=== PATIENT | male | born 1940 | race Caucasian/White ===

== ENCOUNTER 2017-06-12 13:07 | Inpatient (IN) | payer MEDICARE, BC ==
[2017-06-12] MEDS ORDERED: Diltiazem 25 MG/5 ML SDV IVPUSH ONE (13:33)
[2017-06-12] MEDS ORDERED: Acetaminophen 325 MG Tab PO ONE (13:35)
--- NOTE | 2017-06-12 13:39 | EDM.PDOC ---
ED HPI GENERAL MEDICAL PROBLEM - General Chief Complaint: Fever Stated Complaint: HIGH PULSE, LEG SWELLING Time Seen by Provider: 06/12/17 13:31 Source of Information: Reports: Patient History Limitations: Reports: No Limitations - History of Present Illness INITIAL COMMENTS - FREE TEXT/NARRATIVE: 77-year-old male attends the ED with acute redness and swelling of his right leg with increased pain over the last few days. Apparently has been quite red and swollen for the better part of 2-3 weeks. He spiked a temperature early this morning of 104 and he's also experienced rigors and could not keep warm for a period of time this morning. He had contacted his doctor last night and they had phoned in a prescription for Bactrim double strength of which he has taken one tablet thus far. Patient has atrial fibrillation and is aware that his pulse is running way too high today. 155/m at home. He feels generally ill. He is no appetite and has not yet eaten today. He is also an insulin-dependent diabetic and blood sugars have been running normal today. Right leg is been swollen and reddened for 2-3 weeks and oozing fluid intermittently. It will often develop blebs or large bubbles that breakdown and lose serous fluid. His Lasix dosage apparently is the same as it always has been. Onset: Today Onset Date: 06/12/17 (Onset of high fever chills and rigors today. Right leg is been reddened and swollen for the better part of 2 and half weeks.) Duration: Day(s):, Getting Worse Location: Reports: Lower Extremity, Right (Red swollen) Quality: Reports: Ache, Burning, Same as Previous Episode, Sharp, Stabbing, Throbbing Severity: Moderate Improves with: Reports: None Worsens with: Reports: None Context: Reports: Other (Chronic venous insufficiency and dependent edema both lower extremities from obesity and congestive heart failure.). Denies: Activity , Exercise, Lifting, Sick Contact, Trauma Associated Symptoms: Reports: Diaphoresis, Fever/Chills, Loss of Appetite, Malaise, Rash, Weakness. 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: Other (see below) Right Leg Pain Score (Numeric/FACES): 2 - Related Data Allergies Allergy/AdvReac Type Severity Reaction Status Date / Time Cephalosporins Allergy Rash Verified 06/12/17 13:14 Penicillins Allergy Rash Verified 06/12/17 13:14 Home Meds: Home Meds Enalapril [Vasotec] 5 mg PO DAILY 11/04/14 [History] Insulin Glulisine [Apidra Solostar] 5 units INJECT TID PRN 11/04/14 [History] LORazepam [Ativan] 0.5 mg PO Q8H PRN 11/04/14 [History] Simvastatin [Zocor] 20 mg PO DAILY 11/04/14 [History] traMADol [Ultram] 50 mg PO TID PRN 11/04/14 [History] Diltiazem [Cardizem CD] 180 mg PO ACBRK 14 Days cap.cd 12/07/14 [Rx] Metoprolol Succinate 50 mg PO DAILY 14 Days tab.er.24h 12/07/14 [Rx] Rivaroxaban [Xarelto] 20 mg PO BEDTIME 14 Days tablet 12/07/14 [Rx] Furosemide [Lasix] 20 mg PO ASDIRECTED 06/12/17 [History] Insulin Glargine,Hum.Rec.Anlog [Toujeo Solostar] 44 unit SQ BEDTIME 06/12/17 [ History] Sulfamethoxazole/Trimethoprim [Bactrim Ds Tablet] 1 tab PO BID 06/12/17 [History ] Past Medical History Other HEENT History: vertigo Cardiovascular History: Reports: Afib (Chronically and is on Xarelto.), Heart Failure, High Cholesterol, Hypertension Respiratory History: Reports: COPD (Mild.) Other Respiratory History: cough for past week Other Genitourinary History: pt states dribbles urine alot Musculoskeletal History: Reports: Arthritis (Knees hips and neck and low back.) , Back Pain, Chronic, Osteoarthritis Neurological History: Reports: Other (See Below) (Mild peripheral neuropathy in both lower extremities) Endocrine/Metabolic History: Reports: Diabetes, Type II (Controlled with insulin and diet. He is also on Trajenta 44 units at hs. 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 Denies: Weight Loss HEENT: Reports: Glasses (Just for reading.) Respiratory: Reports: Shortness of Breath, Wheezing (On minimal exertion), Cough. Denies: Pleuritic Chest Pain ( case no wheezing), Sputum, Hemoptysis ( Nonproductive for the last week.) Cardiovascular: Reports: Blood Pressure Problem, Claudication (Chronic hypertension), Dyspnea on Exertion ( mild in the calves.), Edema (Chronic lower extremity edema up to the knees.), Palpitations (He is aware of palpitations today with his heart rate being 1 55/m.). Denies: Chest Pain, Lightheadedness Endocrine: Reports: Fatigue, Polyuria GI/Abdominal: Reports: Decreased Appetite, Nausea. Denies: Hematemesis, Hematochezia (Just today with fever and illness.), Stool Incontinence (Mild nausea), Vomiting : Reports: Frequency Musculoskeletal: Reports: Neck Pain, Shoulder Pain, Back Pain, Joint Pain ( Knees and hips) Skin: Reports: Rash, Erythema (Chronic rash right lower extremity from venous insufficiency and now development of cellulitis. Right lower leg), Lesions ( Right lower leg will develop large blebs or vesicles that rupturing drain serous fluid.) Neurological: Reports: No Symptoms, Paresthesia (Both lower extremities up to mid tib-fib in both feet from peripheral neuropathy), Weakness (Feels much more weak today.). Denies: Confusion, Dizziness, Headache, Numbness Hematologic/Lymphatic: Reports: No Symptoms Immunologic: Reports: No Symptoms ED EXAM, GENERAL - Physical Exam Exam: See Below Exam Limited By: No Limitations General Appearance: Alert, WD/WN, Mild Distress, Other (He is very warm to palpation. He is alert and oriented. Vital signs show respiratory to 26/m mildly hypertensive and O2 sats of 98% on room air.) Eye Exam: Bilateral Eye: Normal Inspection Throat/Mouth: Normal Inspection, Normal Lips, Normal Teeth, Other Head: Atraumatic, Normocephalic (Tongue is mildly dry and shrunken.) Neck: Normal Inspection, Supple, Non-Tender, Limited Range of Motion, Tender Lateral. No: Full Range of Motion Respiratory/Chest: Lungs Clear, Respiratory Distress (Mild tachypnea at rest. 26 -28/m), Decreased Breath Sounds (Decreased breath sounds to the left lower lung cat). No: Crackles, Rales, Rhonchi Cardiovascular: Irregularly Irregular (Heart rate on monitor is atrial fibrillation at 145-1 55/m. Patient has chronic atrial fibrillation.). No: Normal Peripheral Pulses, No Edema Peripheral Pulses: 1+: Posterior Tibial (L) (Pulses are barely palpable in either dorsal foot.), Posterior Tibial (R), Dorsalis Pedis (L), Dorsalis Pedis ( R) GI/Abdominal: Normal Bowel Sounds, Soft, Non-Tender, No Organomegaly, Hernia ( Is a fairly large asymptomatic umbilical hernia that is easily reducible.), Other (Moderate abdominal obesity.) Back Exam: Normal Inspection, Full Range of Motion. No: CVA Tenderness (L), CVA Tenderness (R) Extremities: Normal Inspection, Normal Range of Motion, Non-Tender, Pedal Edema (Gross edema past the knee on the right side.), Leg Pain (Right leg is painful to touch), Increased Warmth, Other (Large bleb on the medial aspect of the mid leg. There are no open draining serous wounds or purulent wounds on the leg at this time. The leg is very warm to palpation compatible with cellulitis.) Neurological: Alert, Oriented, CN II-XII Intact, Normal Cognition. No: Normal Gait Skin Exam: Warm, Erythema (Right leg right leg), Increased Warmth EKG INTERPRETATION EKG Date: 06/12/17 Time: 13:20 Rhythm: Other (Narrow complex tachycardia without well-defined P waves. Possible sinus rhythm with a first-degree AV block versus accelerated junctional rhythm. Also possibility of atrial flutter atrial fib with a variable block.) Rate (Beats/Min): 141 P-Wave: Absent QRS: Other (Voltages decreased in the limb leads due to his thick chest.) ST-T: Depressed (Mildly depressed and V6 and V5.) QT: Normal EKG Interpretation Comments: Borderline ECG Course - Vital Signs Last Recorded V/S: Last Vital Signs Temp -11.2 C L 06/12/17 13:48 Pulse 145 H 06/12/17 13:15 Resp 26 H 06/12/17 13:15 BP 142/78 H 06/12/17 13:15 Pulse Ox 98 06/12/17 13:15 - Orders/Labs/Meds Orders: Active Orders 24 hr Category Date Time Status Blood Glucose Check, Bedside [RC] ONETIME Care 06/12/17 13:32 Active EKG Documentation Completion [RC] STAT Care 06/12/17 13:31 Active CULTURE BLOOD [BC] Stat Lab 06/12/17 13:53 Received CULTURE BLOOD [BC] Stat Lab 06/12/17 14:35 Received URINALYSIS W/MICROSCOPIC [UA W/MICROSCOPIC] [URIN] Stat Lab 06/12/17 13:32 Uncollected Diltiazem 125 mg Med 06/12/17 13:45 Active Sodium Chloride 0.9% [Normal Saline] 100 ml IV ASDIRECTED Sodium Chloride 0.9% [Normal Saline] 1,000 ml Med 06/12/17 13:45 Active IV ASDIRECTED Blood Culture x2 Reflex Set [OM.PC] Stat Oth 06/12/17 13:32 Ordered Medication Orders Diltiazem HCl 125 mg/ Sodium (Chloride) 125 mls @ 10 mls/hr IV ASDIRECTED HARRISON PRN Reason: 10 MG/HR Last Admin: 06/12/17 14:04 Dose: 10 mg/hr, 10 mls/hr Sodium Chloride (Normal Saline) 1,000 mls @ 100 mls/hr IV ASDIRECTED HARRISON Last Admin: 06/12/17 13:49 Dose: 100 mls/hr Labs: Laboratory Tests 06/12/17 06/12/17 06/12/17 Range/Units 13:20 13:20 13:20 WBC 5.85 (4.23-9.07) K/mm3 RBC 4.45 L (4.63-6.08) M/mm3 Hgb 14.3 (13.7-17.5) gm/L Hct 43.4 (40.1-51.0) % MCV 97.5 H (79.0-92.2) fl MCH 32.1 (25.7-32.2) pg MCHC 32.9 (32.2-35.5) g/dl RDW Std Deviation 46.3 H (35.1-43.9) fL Plt Count 210 (163-337) K/mm3 MPV 9.9 (9.4-12.3) fl Neutrophils % (Manual) 79 H (40-60) % Band Neutrophils % 1 (0-10) % Lymphocytes % (Manual) 15 L (20-40) % Atypical Lymphs % 0 % Monocytes % (Manual) 5 (2-10) % Eosinophils % (Manual) 0 L (0.8-7.0) % Basophils % (Manual) 0 L (0.2-1.2) Platelet Estimate Adequate RBC Morph Comment Normal ESR (0-15) mm/hr PT 13.4 H (8.0-13.0) SECONDS INR 1.21 Sodium 140 (136-145) mEq/L Potassium 4.0 (3.5-5.1) mEq/L Chloride 104 (98-107) mEq/L Carbon Dioxide 26 (21-32) mEq/L Anion Gap 14.0 (5-15) BUN 10 (7-18) mg/dL Creatinine 1.3 (0.7-1.3) mg/dL Est Cr Clr Drug Dosing 46.83 mL/min Estimated GFR (MDRD) 53 (>60) mL/min BUN/Creatinine Ratio 7.7 L (14-18) Glucose 100 (83-115) mg/dL POC Glucose (83-110) mg/dL Calcium 8.8 (8.5-10.1) mg/dL Magnesium 1.6 L (1.8-2.4) mg/dl Total Bilirubin 0.7 (0.2-1.0) mg/dL AST 16 (15-37) U/L ALT 20 (16-63) U/L Alkaline Phosphatase 86 (46-116) U/L CK-MB (CK-2) 0.7 (0-3.6) ng/ml Troponin I < 0.017 (0.00-0.056) ng/mL C-Reactive Protein 2.3 H* (<1.0) mg/dL NT-Pro-B Natriuret Pep 215 (0-450) pg/mL Total Protein 7.4 (6.4-8.2) g/dl Albumin 3.2 L (3.4-5.0) g/dl Globulin 4.2 gm/dL Albumin/Globulin Ratio 0.8 L (1-2) 06/12/17 06/12/17 Range/Units 13:20 14:19 WBC (4.23-9.07) K/mm3 RBC (4.63-6.08) M/mm3 Hgb (13.7-17.5) gm/L Hct (40.1-51.0) % MCV (79.0-92.2) fl MCH (25.7-32.2) pg MCHC (32.2-35.5) g/dl RDW Std Deviation (35.1-43.9) fL Plt Count (163-337) K/mm3 MPV (9.4-12.3) fl Neutrophils % (Manual) (40-60) % Band Neutrophils % (0-10) % Lymphocytes % (Manual) (20-40) % Atypical Lymphs % % Monocytes % (Manual) (2-10) % Eosinophils % (Manual) (0.8-7.0) % Basophils % (Manual) (0.2-1.2) Platelet Estimate RBC Morph Comment ESR 60 H (0-15) mm/hr PT (8.0-13.0) SECONDS INR Sodium (136-145) mEq/L Potassium (3.5-5.1) mEq/L Chloride (98-107) mEq/L Carbon Dioxide (21-32) mEq/L Anion Gap (5-15) BUN (7-18) mg/dL Creatinine (0.7-1.3) mg/dL Est Cr Clr Drug Dosing mL/min Estimated GFR (MDRD) (>60) mL/min BUN/Creatinine Ratio (14-18) Glucose (83-115) mg/dL POC Glucose 102 (83-110) mg/dL Calcium (8.5-10.1) mg/dL Magnesium (1.8-2.4) mg/dl Total Bilirubin (0.2-1.0) mg/dL AST (15-37) U/L ALT (16-63) U/L Alkaline Phosphatase (46-116) U/L CK-MB (CK-2) (0-3.6) ng/ml Troponin I (0.00-0.056) ng/mL C-Reactive Protein (<1.0) mg/dL NT-Pro-B Natriuret Pep (0-450) pg/mL Total Protein (6.4-8.2) g/dl Albumin (3.4-5.0) g/dl Globulin gm/dL Albumin/Globulin Ratio (1-2) Meds: Medications Generic Name Dose Route Start Last Admin Trade Name Freq PRN Reason Stop Dose Admin Diltiazem HCl 125 mg/ Sodium 125 mls @ 10 mls/hr 06/12/17 13:45 06/12/17 14: 04 Chloride IV 10 mg/hr ASDIRECTED HARRISON 10 mls/hr 10 MG/HR Administration Sodium Chloride 1,000 mls @ 100 mls/hr 06/12/17 13:45 06/12/17 13:49 Normal Saline IV 100 mls/hr ASDIRECTED HARRISON Administration Discontinued Medications Generic Name Dose Route Start Last Admin Trade Name Freq PRN Reason Stop Dose Admin Acetaminophen 975 mg 06/12/17 13:35 06/12/17 13:48 Tylenol PO 06/12/17 13:36 975 mg NOW ONE Administration Diltiazem HCl 10 mg 06/12/17 13:33 06/12/17 13:51 Diltiazem IVPUSH 06/12/17 13:34 10 mg ONETIME ONE Administration Vancomycin HCl 1 gm/ Sodium 250 mls @ 250 mls/hr 06/12/17 13:39 06/12/17 14: 06 Chloride IV 06/12/17 14:38 250 mls/hr ONETIME ONE Administration - Radiology Interpretation Free Text/Narrative:: 69-year-old male presents to the ED with acute febrile illness with rigors and chills. He has had a painful swollen right right leg for the better part of 3 weeks which is become much worse over the last few days. He was started on Bactrim double strength for this last evening of 4 so he's only had 2 tablets. He presents with a rapid irregular heart rate i.e. atrial fibrillation in the 150s. Has a history of atrial fibrillation. He is on Xarelto chronically. He does have a nonproductive cough. Lungs are clear clinically without any obvious signs of jugular venous distention or fluid overload. He has dependent edema in both lower extremities compatible with right-sided heart failure. Plan :septic workup although the source of infection appears to be obviously cellulitis of the right lower extremity. He has a narrow complex tachycardia of unclear etiology as P waves are not easily discernible and appeared to be coming on a variable basis suggesting underlying atrial flutter or sinus with variable block. Accelerated junctional rhythm as another possibility. Plan he has a history of atrial fibrillation and therefore going to place him on Cardizem drip at 10 mg per hour to slow the rate so that I can try and identify etiology of the rhythm. He will be given vancomycin 1 g after blood cultures 2 been collected. Is going to start him on Zyvox as well but it interacts badly with tramadol which he takes 3 times daily for chronic pain. He is going to require medication to cover staph aureus and potentially MRSA infection. He is allergic to cephalosporins and to penicillins. - Re-Assessments/Exams Free Text/Narrative Re-Assessment/Exam: 06/12/17 14:42 heart rate is currently 1 13/m with BP of 111/69. The P waves remained variable sometimes visible sometimes not. Underlying rhythm appears to be atrial flutter with a variable 2-3-1 conduction block. 06/12/17 14:44 Labs reveal a white count of 5.85 with 79% neutrophils and 1% band cells reported. Hemoglobin is 14.3 with hematocrit of 43.4 MCV is 97.5. Sedimentation rate is 60. PT is 13.4 with an INR of 1.21. Sodium 140. Potassium 4.0. Toward 104. Bicarbonate 26. Anion gap is 14.0. BUN is 10. Creatinine 1.3. EGFR is 53. Glucose is currently 100. Calcium is 8.8 magnesium slightly low at 1.6. Bilirubin 0.7. AST 16. ALT 20. Alk phosphatase 86. CK-MB fraction is 0.7. Troponin I is less than 0.017. C-reactive protein is 2.3. BNP is 2:15. Albumin fraction slightly low at 3.2. 06/12/17 14:49 chest x-ray reveals an elevated right hemidiaphragm likely due to paralysis. There is borderline cardiomegaly. Visualized lung cat are otherwise clear. There is mild hyperinflated lung cat. There is a question right upper lobe lung nodule and noncontrast chest CT is recommended when feasible. Plan will be to discuss case with hospitalist to arrange admission to the hospital. 06/12/17 15:11 C-reactive protein is 2.3. I did speak with Dr. De La Rosa crop consultant hospitalist and the patient will be admitted to the intensive care unit due to being on Cardizem drip for presumed atrial fibrillation/atrial flutter rhythm. Current blood pressure is 117/63 with a heart rate in the 90s. 06/12/17 15:15 patient is complaining that he had diffuse aching in his fingers and wrists last night in both hands. This sometimes can be a sinus symptom of hyperuricemia. I will order a uric acid level. 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; Z79.4 - FDC (current) use of insulin Referrals: Eugenie Sen COMPTOMETRIST [Primary Care Provider] - Forms: ED Department Discharge, ED Department Discharge - My Orders Last 24 Hours: My Active Orders 06/12/17 13:31 EKG Documentation Completion [RC] STAT 06/12/17 13:32 Blood Glucose Check, Bedside [RC] ONETIME URINALYSIS W/MICROSCOPIC [UA W/MICROSCOPIC] [URIN] Stat Blood Culture x2 Reflex Set [OM.PC] Stat 06/12/17 13:45 Diltiazem 125 mg Sodium Chloride 0.9% [Normal Saline] 100 ml IV ASDIRECTED Sodium Chloride 0.9% [Normal Saline] 1,000 ml IV ASDIRECTED 06/12/17 13:53 CULTURE BLOOD [BC] Stat 06/12/17 14:35 CULTURE BLOOD [BC] Stat - Assessment/Plan Last 24 Hours: My Active Orders 06/12/17 13:31 EKG Documentation Completion [RC] STAT 06/12/17 13:32 Blood Glucose Check, Bedside [RC] ONETIME URINALYSIS W/MICROSCOPIC [UA W/MICROSCOPIC] [URIN] Stat Blood Culture x2 Reflex Set [OM.PC] Stat 06/12/17 13:45 Diltiazem 125 mg Sodium Chloride 0.9% [Normal Saline] 100 ml IV ASDIRECTED Sodium Chloride 0.9% [Normal Saline] 1,000 ml IV ASDIRECTED 06/12/17 13:53 CULTURE BLOOD [BC] Stat 06/12/17 14:35 CULTURE BLOOD [BC] Stat
[2017-06-12] MEDS ORDERED: Diltiazem 125 MG in Sodium Chloride 0.9% 100 ML IV SCH (13:45)
[2017-06-12] MEDS: Sodium Chloride 0.9% 1,000 ML IV SCH ×2 (13:49→23:58)
--- NOTE | 2017-06-12 13:51 | CR ---
Chest: Portable view of the chest is obtained. Comparison: Prior chest x-ray of 02/23/15. Heart size and mediastinum are within normal limits for portable technique. Questionable nodule within the upper right lung overlying the clavicle. Lungs otherwise are clear. Bony structures are grossly intact. Impression: 1. Questionable right upper lung nodule. Noncontrast chest CT recommended to further evaluate. 2. Nothing acute is otherwise seen on portable chest x-ray Diagnostic code #9
--- NOTE | 2017-06-12 16:16 | PCM.HP ---
H&P History of Present Illness - General Date of Service: 06/12/17 Admit Problem/Dx: Admission Diagnosis/Problem Admission Diagnosis/Problem Fever with chills Source of Information: Patient, Old Records, Provider, RN, RN Notes Reviewed, Significant Other History Limitations: Reports: No Limitations - History of Present Illness Initial Comments - Free Text/Narative: Shannon Page is a 77 yo male who presented to our ED today with increased pain , redness, and swelling to his right lower extremity. His leg has reportedly been red and swollen for 2-3 weeks with intermittent oozing fluid. He reports that has developed blebs or "large bubbles" that breakdown and lose serous fluid. This morning he spiked temperature around 104. He's also had difficulty keeping form express rigors today. He contacted his primary care provider and they gave him a Bactrim prescription. He is taking 1 tablet thus far. He does have a history of A. fib and on presentation his pulse was very high. His reportedly 155 at presentation. He reportedly feels very ill. He's had no appetite. He is also insulin-dependent diabetic, however his blood sugars have been running normal. He is also on daily Lasix. Once in the ED an EKG was obtained. A narrow complex tachycardia without well- defined P waves was noted. Possible sinus rhythm with a first-degree AV block versus accelerated junctional rhythm. Also possibility of atrial flutter\\A. fib with a variable block. Rate was 141 bpm. Pulses were decreased in the legs due to his thick chest. There is mildly depressed ST segment in V6 and V5. It was noted as a borderline EKG. This is interpreted by the ED provider. Temp was 102. Respirations were 26. Blood pressure 142/78. Labs are obtained: 30 BC 5.85. Hemoglobin 14.3. Hematocrit 43.4. He was macrocytic. Platelets 210,000. Neutrophils were elevated at 79%. Band neutrophils were noted at 1%. ESR was elevated at 60. PT was 13.4. INR 121. Sodium 140. Potassium 4.0. Chloride 104. Carbon dioxide 26. Anion gap 14.0. BUN 10. Creatinine 1.3. EGFR 53. Glucose 100. Calcium 8.8. Magnesium low at 1.6. Total bilirubin 0.7. Liver enzymes looked good with AST of 16, ALT at 20, alkaline phosphatase 86. CK-MB was good at 0.7. Troponin was negative at less than 0.017. CRP was slightly elevated at 2.3. ProBNP was good at 2:15. Protein was good at 7.4. Albumin was slightly low at 3.2. UA was ordered and shows trace occult blood. UA is otherwise normal. Acetaminophen was given for fever. Diltiazem 10 mg IV push was given. Diltiazem drip was also started. Vancomycin 1 g was initiated in the ED. It is noted in the ED that he does have a nonproductive cough however, lungs are clear without any obvious signs of jugular venous distention fluid overload. He does have dependent edema in both lower extremities. Chest x-ray was obtained and interpreted by Dr. Nowak , radiologist, as 1. Questionable right upper lung nodule. Noncontrast chest CT recommended to further evaluate. 2. Nothing acute is otherwise seen on portable chest x-ray. He responded well to the Cardizem and did convert to normal sinus rhythm. Blood pressure was 117/63 and heart rate in the 90s prior to being admitted to the floor. Due to some noted aching in his fingers and wrists see her as it is also ordered and found to be 6.0. He caries a history of: Anxiety, CAD with Hx/o stenting, Chronic A. fib treated with Xarelto, heart failure, HLD, HTN, mild COPD, arthritis, chronic back pain, psoriasis, osteoarthritis, mild peripheral neuropathy in both lower extremities , type 2 diabetes controlled with insulin and diet, chronic peripheral edema, and hx/o prostate cancer. He is reportedly a former smoker. He subsequently admitted to the ICU. He is a full code. His PCP is MADISON Dejesus, here at [facility]. Right Leg Pain Score (Numeric/FACES): 2 - Related Data Allergies/Adverse Reactions: Allergies Allergy/AdvReac Type Severity Reaction Status Date / Time Cephalosporins Allergy Rash Verified 06/12/17 13:14 Penicillins Allergy Rash Verified 06/12/17 13:14 Home Medications: Home Meds Enalapril [Vasotec] 2.5 mg PO DAILY 11/04/14 [History] Insulin Glulisine [Apidra Solostar] 5 units INJECT TID PRN 11/04/14 [History] LORazepam [Ativan] 1 mg PO TID PRN 11/04/14 [History] Simvastatin [Zocor] 10 mg PO DAILY 11/04/14 [History] traMADol [Ultram] 50 - 100 mg PO QID PRN 11/04/14 [History] Diltiazem [Cardizem CD] 180 mg PO ACBRK 14 Days cap.cd 12/07/14 [Rx] Metoprolol Succinate 50 mg PO DAILY 14 Days tab.er.24h 12/07/14 [Rx] Rivaroxaban [Xarelto] 20 mg PO BEDTIME 14 Days tablet 12/07/14 [Rx] Bacitracin 3.5 gm OP BID 06/12/17 [History] Clopidogrel [Plavix] 75 mg PO DAILY 06/12/17 [History] Furosemide [Lasix] 20 mg PO DAILY 06/12/17 [History] Gabapentin [Neurontin] 100 mg PO BID 06/12/17 [History] Insulin Glargine,Hum.Rec.Anlog [Toujeo Solostar] 44 unit SQ BEDTIME 06/12/17 [ History] Insulin Glargine,Hum.Rec.Anlog [Toujeo Solostar] 44 unit SQ BEDTIME 06/12/17 [ History] Sulfamethoxazole/Trimethoprim [Bactrim Ds Tablet] 1 tab PO BID 06/12/17 [History ] Past Medical History Other HEENT History: vertigo Cardiovascular History: Reports: Afib (Chronically and is on Xarelto.), Heart Failure, High Cholesterol, Hypertension Respiratory History: Reports: COPD (Mild.) Other Respiratory History: cough for past week Other Genitourinary History: pt states dribbles urine alot Musculoskeletal History: Reports: Arthritis (Knees hips and neck and low back.) , Back Pain, Chronic, Osteoarthritis Neurological History: Reports: Other (See Below) (Mild peripheral neuropathy in both lower extremities) Endocrine/Metabolic History: Reports: Diabetes, Type II (Controlled with insulin and diet. He is also on Trajenta 44 units at hs. 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 Upon my arrival in the patients room HR was noted to be in a sinus rhythm with HR in the 90's. 12-lead EKG was ordered showing sinus rhythm with 1 degree HB. Rate was in the 90's. Troponin was negative. Patient denied any symptoms throughout episode. I am suspecting this was a problem with the monitor, or more specifically monitor patches. Equipment was changed and we will continue to monitor. General: Reports: Fever, Malaise, Weakness, Fatigue, Decreased Appetite. Denies : Chills HEENT: Reports: No Symptoms. Denies: Ear Pain, Eye Pain, Hearing Changes, Rhinitis, Post Nasal Drip, Sore Throat, Vertigo, Visual Changes Pulmonary: Reports: Cough. Denies: Shortness of Breath, Wheezing, Pleuritic Chest Pain, Sputum Cardiovascular: Reports: Dyspnea on Exertion (chornic ), Edema (chronic up to knees ), Blood Pressure Problem. Denies: Chest Pain, Palpitations Gastrointestinal: Reports: No Symptoms. Denies: Abdominal Pain, Anorexia, Constipation, Diarrhea, Nausea, Stool Incontinence, Vomiting Genitourinary: Reports: Frequency. Denies: No Symptoms, Dysuria, Burning, Pain , Urgency Musculoskeletal: Reports: Neck Pain (chronic ), Shoulder Pain (chronic), Back Pain (chronic ), Hand Pain (described as numbness ), Leg Pain (right ), Joint Pain (chronic knee and hip pain). Denies: Arm Pain, Foot Pain, Joint Swelling, Muscle Pain, Muscle Stiffness Skin: Reports: Erythema (right leg ), Change in Color (erythema in right leg. Bilateral leg discoloration ), Lesions (blebs on right lower leg not actively draining ). Denies: Jaundice, Diaphoresis, Pruritis, Wound, Urticaria Psychiatric: Reports: No Symptoms. Denies: Confusion, Depression, Mood Lability , Anxiety, Hallucinations Neurological: Reports: Numbness (chronic periphreal neuropathy ), Paresthesia ( bilateral up to middle lower leg.), Tingling (chronic periphreal neuropathy ). Denies: Confusion, Dizziness, Headache, Seizure, Trouble Speaking, Change in Speech Hematologic/Lymphatic: Reports: No Symptoms Immunologic: Reports: No Symptoms Review of Systems Comment:: Patient is an insulin-dependent diabetic. I discussed his insulin with both patient and his primary care provider. The report that the patient was on Lantus and NovoLog and developed a type of rash from this with his psoriasis. He was switched to his current insulin regiment and his PCP recommends staying with this. This seems reasonable. She also discussed obtaining an echocardiogram, as the patient was supposed to get one several months ago, however he called to reschedule and never showed up. She is suggested we obtain this while he is hospitalized as well. She reports that the patient has never had any type of peripheral vascular testing performed. I discussed this with her as I feel this is something that should be explored. It would obviously need to wait until his infection has resolved. Exam - Exam Exam: See Below - Vital Signs Vital Signs: Last Vital Signs Temp 11.8 F L 06/12/17 13:48 Pulse 145 H 06/12/17 13:15 Resp 26 H 06/12/17 13:15 BP 142/78 H 06/12/17 13:15 Pulse Ox 98 06/12/17 13:15 Weight: 245 lb - Exam Quality Assessment: DVT Prophylaxis General: Alert, Oriented, Cooperative. No: Mild Distress HEENT: Conjunctiva Clear, EACs Clear, EOMI, Hearing Intact, Mucosa Moist & Pump Back , Nares Patent, Normal Nasal Septum, Posterior Pharynx Clear, PERRLA Neck: Supple, Trachea Midline. No: Full Range of Motion, JVD, Thyromegaly Lungs: Clear to Auscultation, Decreased Breath Sounds. No: Crackles, Rales, Rhonchi, Rub, Stridor, Wheezing Cardiovascular: Regular Rate, Regular Rhythm GI/Abdominal Exam: Normal Bowel Sounds, Soft, Non-Tender, No Organomegaly, No Distention, No Abnormal Bruit, No Mass, Pelvis Stable (Male) Exam: Deferred Rectal (Males) Exam: Deferred Back Exam: Normal Inspection, Full Range of Motion Extremities: Normal Capillary Refill, Pedal Edema (R>>L), Increased Warmth ( right leg), Redness (right lower leg ), Other (Large bleb with several smaller blebs on right medial leg. None are draining at this point. ) Peripheral Pulses: 1+: Posterior Tibial (L), Posterior Tibial (R), Dorsalis Pedis (L), Dorsalis Pedis (R), 2+: Radial (L), Radial (R) Skin: Warm, Dry, Other (Right leg erythematous, swollen, and warm.) Neurological: Cranial Nerves Intact (Grossly) Neuro Extensive - Mental Status: Alert, Oriented x3, Normal Mood/Affect, Normal Cognition, Memory Intact Neuro Extensive - Motor, Sensory, Reflexes: CN II-XII Intact (Grossly) Psychiatric: Alert, Normal Affect, Normal Mood - Patient Data Result Diagrams: 06/12/17 13:20 06/12/17 13:20 *Q Meaningful Use (ADM) - VTE *Q VTE Criteria *Q: - Stroke *Q Stroke Criteria *Q: - AMI *Q AMI Criteria *Q: - Problem List (1) Cellulitis of right lower extremity SNOMED Code(s): 842290740 ICD Code: L03.115 - CELLULITIS OF RIGHT LOWER LIMB Status: Acute Priority : High Current Visit: Yes (2) Atrial fibrillation with rapid ventricular response SNOMED Code(s): 938723005279698 ICD Code: I48.91 - UNSPECIFIED ATRIAL FIBRILLATION Status: Acute Priority : High Current Visit: Yes (3) Acute febrile illness SNOMED Code(s): 855015866 ICD Code: R50.9 - FEVER, UNSPECIFIED Status: Acute Priority: High Current Visit: Yes (4) Type 2 diabetes mellitus, with long-term current use of insulin SNOMED Code(s): 639538507 ICD Code: E11.9 - TYPE 2 DIABETES MELLITUS WITHOUT COMPLICATIONS; Z79.4 - ALF (CURRENT) USE OF INSULIN Status: Acute Priority: High Current Visit: Yes Qualifiers: Diabetes mellitus complication status: with skin complications Diabetes mellitus complication detail: with other skin ulcer Qualified Code(s): E11.622 - Type 2 diabetes mellitus with other skin ulcer; Z79.4 - extermination inspector ( current) use of insulin; Z79.4 - extermination inspector (current) use of insulin; Z79.4 - extermination inspector (current) use of insulin; Z79.4 - detention (current) use of insulin (5) HTN (hypertension) SNOMED Code(s): 17259603 ICD Code: I10 - ESSENTIAL (PRIMARY) HYPERTENSION Status: Acute Priority: High Current Visit: Yes Qualifiers: Hypertension type: essential hypertension Qualified Code(s): I10 - Essential (primary) hypertension (6) COPD (chronic obstructive pulmonary disease) SNOMED Code(s): 22063719 ICD Code: J44.9 - CHRONIC OBSTRUCTIVE PULMONARY DISEASE, UNSPECIFIED Status : Chronic Priority: Low Current Visit: Yes Qualifiers: COPD type: unspecified COPD Qualified Code(s): J44.9 - Chronic obstructive pulmonary disease, unspecified (7) Arthritis SNOMED Code(s): 3234849 ICD Code: M19.90 - UNSPECIFIED OSTEOARTHRITIS, UNSPECIFIED SITE Status: Chronic Priority: Low Current Visit: No (8) Osteoarthritis SNOMED Code(s): 986844360 ICD Code: M19.90 - UNSPECIFIED OSTEOARTHRITIS, UNSPECIFIED SITE Status: Chronic Priority: Low Current Visit: No Qualifiers: Osteoarthritis location: unspecified site Osteoarthritis type: primary Qualified Code(s): M19.91 - Primary osteoarthritis, unspecified site (9) Heart failure SNOMED Code(s): 79049340 ICD Code: I50.9 - HEART FAILURE, UNSPECIFIED Status: Chronic Priority: Medium Current Visit: No Qualifiers: Heart failure type: unspecified heart failure type Heart failure chronicity : chronic Qualified Code(s): I50.9 - Heart failure, unspecified (10) HLD (hyperlipidemia) SNOMED Code(s): 82647505 ICD Code: E78.5 - HYPERLIPIDEMIA, UNSPECIFIED Status: Chronic Priority: Low Current Visit: No Qualifiers: Hyperlipidemia type: pure hypercholesterolemia Qualified Code(s): E78.00 - Pure hypercholesterolemia, unspecified; E78.0 - Pure hypercholesterolemia (11) Pedal edema SNOMED Code(s): 374717061 ICD Code: R60.0 - LOCALIZED EDEMA Status: Chronic Priority: High Current Visit: Yes Problem List Initiated/Reviewed/Updated: Yes Orders Last 24hrs: Active Orders 24 hr Category Date Time Status URIC ACID [CHEM] Stat Lab 06/12/17 15:15 Ordered Medication Orders Diltiazem HCl 125 mg/ Sodium (Chloride) 125 mls @ 10 mls/hr IV ASDIRECTED [facility] PRN Reason: 10 MG/HR Last Admin: 06/12/17 14:04 Dose: 10 mg/hr, 10 mls/hr Sodium Chloride (Normal Saline) 1,000 mls @ 100 mls/hr IV [facility]ED [facility] Last Admin: 06/12/17 13:49 Dose: 100 mls/hr Assessment/Plan Comment:: I/P: Cellulitis of right lower extremity -WBC 5.85 -Neutrophils 79% -ESR 30 -CRP 2.3 -Lactic acid 1.1 -Fever of 102 in ED -Blood cultures pending -Right lower leg is erythematous, warm and has multiple blebs on on it. 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 outpatient -BNP 215; Spoke with PCP. Pt. was scheduled to get Echo but didn't show. She is requesting one. This seems reasonable - ordered. -Vancomycin 1g given in ED - continue -Of note: takes tramadol TID for pain and zosyn interacts; allergic to cephalosporins and PCNs. A-fib with RVR -Hx/o chronic a-fib -HR around 155 on arrival to ED -EKG in ED shows narrow complex tachycardia without well-defined he weighs. Possible sinus rhythm with a first-degree AV block versus accelerated junctional rhythm. Also possibility of atrial flutter\\atrial fib with a variable block. Decreased voltages in limb leads. ST depression in V5 and V6. -Given 10 mg IVP diltiazem in ED followed by initiation of Diltiazem drip. -Rhythm converted in ED prior to arrival on floor. -Will hold diltiazem drip for now -Continuous secured entrance monitor -PO home dose diltiazem in AM pending no changes overnight -Repeat 12-lead shows sinus rhythm with first degree HB. -Continue to monitor Acute febrile illness -Likely 2/2 cellulitis as above -Tylenol for fever -CXR Shows nothing acute -UA negative -Continue to monitor Question of possible lung nodule in right upper lung overlying clavicle -Noncontrast chest CT scan recommended by Dr. Nowak -Will order for tomorrow Chronic: Anxiety - stable, home meds as ordered CAD with Hx/o stent placement - stable, home meds as ordered Heart failure - Echo ordered, continue home meds HLD HTN - stable - meds as ordered Mild COPD - PRN meds as ordered Mild peripheral neupropathy - stable, meds as ordered Arthritis - pain meds as ordered osteoarthrits - pain meds as ordered Type II DM - Continue home insulin regimen; Discussed this with pts. PCP as he has had some skin reactions in past. Family brought these in. hx/o prostate cancer - urology following, last PSA was good Peripheral edema - home lasix Plan: Admit to ICU CM/SW for discharge planning PT/OT Spiritual care GI prophylaxis - pepcid DVT/PE prophylaxis - xarelto and plavix as home meds Other orders as indicated above Routine AM labs Home medications as ordered Code Status: Full code. His PCP is ERIN Dejesus here at [facility].
[2017-06-12] MEDS ORDERED: FLU Vacc TS 2017-18 (65yr UP)/PF 180 MCG/0.5 ML Syringe IM ONE (17:00)
[2017-06-12] MEDS ORDERED: Ondansetron 4 MG/2 ML SDV IV PRN (17:23)
[2017-06-12] MEDS ORDERED: Ondansetron 4 MG Tab.DIS PO PRN (17:23)
[2017-06-12] MEDS ORDERED: Bisacodyl 5 MG Tab PO PRN (17:23)
[2017-06-12] MEDS ORDERED: HYDROmorphone 0.5 MG/0.5 ML Syringe IVPUSH PRN (17:23)
[2017-06-12] MEDS ORDERED: Polyethylene Glycol 3350 Powder 17 GM Packet PO PRN (17:23)
[2017-06-12] MEDS ORDERED: Albuterol/Ipratropium 3.0-0.5 MG/3 ML Neb Soln NEB PRN (17:23)
[2017-06-12] MEDS ORDERED: Docusate Sodium 100 MG Cap PO PRN (17:23)
[2017-06-12] MEDS ORDERED: Acetaminophen/HYDROcodone 325-5 MG Tab PO PRN (17:23)
[2017-06-12] MEDS ORDERED: 50% Dextrose in Water 50 ML Syringe IVPUSH PRN (17:27)
[2017-06-12] MEDS ORDERED: Magnesium Sulfate/Water 2 GM in Premix Bag 1 BAG IV ONE (18:27)
[2017-06-12] MEDS: Acetaminophen 325 MG Tab PO PRN (18:54)
[2017-06-12] MEDS ORDERED: Insulin Aspart 100 Units/ML 3 ML Pen SUBCUT PRN (18:59)
[2017-06-12] MEDS: Rivaroxaban 10 MG Tab PO SCH (20:46)
[2017-06-12] MEDS: INSULIN GLULISINE 100 UNIT/ML SUBCUT PRN (20:47)
[2017-06-12] MEDS: Gabapentin 100 MG Cap PO SCH (20:47)
[2017-06-12] MEDS ORDERED: Famotidine 20 MG Tab PO SCH (21:00)
[2017-06-12] MEDS: Ibuprofen 600 MG Tab PO PRN (21:55)
[2017-06-12] MEDS: INSULIN GLARGINE 300 UNIT/ML SUBCUT SCH (21:56)
[2017-06-13] MEDS ORDERED: Vancomycin 1 GM, Vancomycin 250 MG in Sodium Chloride 0.9% 250 ML IV SCH (06:00)
[2017-06-13] MEDS: Diltiazem 180 MG Cap.CD PO SCH (06:34)
[2017-06-13] MEDS: Gabapentin 100 MG Cap PO SCH ×2 (08:08→20:42)
[2017-06-13] MEDS: Clopidogrel 75 MG Tab PO SCH (08:09)
[2017-06-13] MEDS: Acetaminophen 325 MG Tab PO PRN ×2 (08:09→20:41)
[2017-06-13] MEDS: Metoprolol Succinate 50 MG Tab.ER PO SCH (08:10)
[2017-06-13] MEDS: Famotidine 20 MG Tab PO SCH (08:11)
[2017-06-13] MEDS: Furosemide 20 MG Tab PO SCH (08:11)
[2017-06-13] MEDS ORDERED: Diphtheria,Pertussis(Acell),Tetanus Vaccine 0.5 ML SDV IM ONE (08:18)
--- NOTE | 2017-06-13 09:36 | PCM.PN ---
- General Info Date of Service: 06/13/17 Subjective Update: PT LEG IS FLACO RAMÍREZ BUT HE HAD A FEVER THIS AM NO CP/SOB/N/V - Review of Systems General: Reports: Fever HEENT: Reports: No Symptoms Pulmonary: Reports: No Symptoms Cardiovascular: Reports: No Symptoms Gastrointestinal: Reports: No Symptoms Genitourinary: Reports: No Symptoms Musculoskeletal: Reports: No Symptoms Skin: Reports: No Symptoms Neurological: Reports: No Symptoms Psychiatric: Reports: No Symptoms - Patient Data Vitals - Most Recent: Last Vital Signs Temp 101.8 F H 06/13/17 08:09 Pulse 94 06/13/17 08:10 Resp 20 06/13/17 07:48 BP 111/68 06/13/17 08:10 Pulse Ox 95 06/13/17 07:48 Weight - Most Recent: 247 lb 1.6 oz I&O - Last 24 Hours: Intake & Output 06/12/17 06/13/17 06/13/17 22:59 06:59 14:59 Intake Total 493 1767 Output Total 400 350 Balance 93 1417 Lab Results Last 24 Hours: Laboratory Results - last 24 hr 06/12/17 06/12/17 06/12/17 Range/Units 17:22 18:00 18:00 WBC (4.23-9.07) K/mm3 RBC (4.63-6.08) M/mm3 Hgb (13.7-17.5) gm/L Hct (40.1-51.0) % MCV (79.0-92.2) fl MCH (25.7-32.2) pg MCHC (32.2-35.5) g/dl RDW Std Deviation (35.1-43.9) fL Plt Count (163-337) K/mm3 MPV (9.4-12.3) fl Neut % (Auto) (34.0-67.9) % Lymph % (Auto) (21.8-53.1) % [place] % (Auto) (5.3-12.2) % Eos % (Auto) (0.8-7.0) Baso % (Auto) (0.1-1.2) % Neut # (Auto) (1.78-5.38) K/mm3 Lymph # (Auto) (1.32-3.57) K/mm3 [place] # (Auto) (0.30-0.82) K/mm3 Eos # (Auto) (0.04-0.54) K/mm3 Baso # (Auto) (0.01-0.08) K/mm3 Manual Slide Review Sodium (136-145) mEq/L Potassium (3.5-5.1) mEq/L Chloride (98-107) mEq/L Carbon Dioxide (21-32) mEq/L Anion Gap (5-15) BUN (7-18) mg/dL Creatinine (0.7-1.3) mg/dL Est Cr Clr Drug Dosing mL/min Estimated GFR (MDRD) (>60) mL/min BUN/Creatinine Ratio (14-18) Glucose (83-115) mg/dL POC Glucose 77 L (83-110) mg/dL Lactic Acid 1.1 (0.4-2.0) mmol/L Calcium (8.5-10.1) mg/dL Magnesium (1.8-2.4) mg/dl Troponin I < 0.017 (0.00-0.056) ng/mL C-Reactive Protein (<1.0) mg/dL 06/12/17 06/13/17 06/13/17 Range/Units 20:40 06:31 07:54 WBC (4.23-9.07) K/mm3 RBC (4.63-6.08) M/mm3 Hgb (13.7-17.5) gm/L Hct (40.1-51.0) % MCV (79.0-92.2) fl MCH (25.7-32.2) pg MCHC (32.2-35.5) g/dl RDW Std Deviation (35.1-43.9) fL Plt Count (163-337) K/mm3 MPV (9.4-12.3) fl Neut % (Auto) (34.0-67.9) % Lymph % (Auto) (21.8-53.1) % [place] % (Auto) (5.3-12.2) % Eos % (Auto) (0.8-7.0) Baso % (Auto) (0.1-1.2) % Neut # (Auto) (1.78-5.38) K/mm3 Lymph # (Auto) (1.32-3.57) K/mm3 [place] # (Auto) (0.30-0.82) K/mm3 Eos # (Auto) (0.04-0.54) K/mm3 Baso # (Auto) (0.01-0.08) K/mm3 Manual Slide Review Sodium (136-145) mEq/L Potassium (3.5-5.1) mEq/L Chloride (98-107) mEq/L Carbon Dioxide (21-32) mEq/L Anion Gap (5-15) BUN (7-18) mg/dL Creatinine (0.7-1.3) mg/dL Est Cr Clr Drug Dosing mL/min Estimated GFR (MDRD) (>60) mL/min BUN/Creatinine Ratio (14-18) Glucose (83-115) mg/dL POC Glucose 132 H 82 L 102 (83-110) mg/dL Lactic Acid (0.4-2.0) mmol/L Calcium (8.5-10.1) mg/dL Magnesium (1.8-2.4) mg/dl Troponin I (0.00-0.056) ng/mL C-Reactive Protein (<1.0) mg/dL 06/13/17 06/13/17 06/13/17 Range/Units 07:55 07:55 07:55 WBC 4.45 (4.23-9.07) K/mm3 RBC 4.17 L (4.63-6.08) M/mm3 Hgb 13.2 L (13.7-17.5) gm/L Hct 40.5 (40.1-51.0) % MCV 97.1 H (79.0-92.2) fl MCH 31.7 (25.7-32.2) pg MCHC 32.6 (32.2-35.5) g/dl RDW Std Deviation 47.2 H (35.1-43.9) fL Plt Count 162 L (163-337) K/mm3 MPV 9.3 L (9.4-12.3) fl Neut % (Auto) 88.6 H (34.0-67.9) % Lymph % (Auto) 4.5 L (21.8-53.1) % [place] % (Auto) 4.7 L (5.3-12.2) % Eos % (Auto) 1.8 (0.8-7.0) Baso % (Auto) 0.2 (0.1-1.2) % Neut # (Auto) 3.94 (1.78-5.38) K/mm3 Lymph # (Auto) 0.20 L (1.32-3.57) K/mm3 [place] # (Auto) 0.21 L (0.30-0.82) K/mm3 Eos # (Auto) 0.08 (0.04-0.54) K/mm3 Baso # (Auto) 0.01 (0.01-0.08) K/mm3 Manual Slide Review Abnormal smear Sodium 137 (136-145) mEq/L Potassium 4.1 (3.5-5.1) mEq/L Chloride 103 (98-107) mEq/L Carbon Dioxide 23 (21-32) mEq/L Anion Gap 15.1 H (5-15) BUN 11 (7-18) mg/dL Creatinine 1.2 (0.7-1.3) mg/dL Est Cr Clr Drug Dosing 50.73 mL/min Estimated GFR (MDRD) 59 (>60) mL/min BUN/Creatinine Ratio 9.2 L (14-18) Glucose 99 (83-115) mg/dL POC Glucose (83-110) mg/dL Lactic Acid 1.0 (0.4-2.0) mmol/L Calcium 7.9 L (8.5-10.1) mg/dL Magnesium 1.8 (1.8-2.4) mg/dl Troponin I (0.00-0.056) ng/mL C-Reactive Protein 6.5 H* (<1.0) mg/dL Med Orders - Current: Current Medications Acetaminophen (Tylenol) 650 mg PO Q4H PRN PRN Reason: Pain (Mild 1-3)/fever Last Admin: 06/13/17 08:09 Dose: 650 mg Albuterol/Ipratropium (Duoneb 3.0-0.5 Mg/3 Ml) 3 ml NEB Q4H PRN PRN Reason: Shortness Of Breath/wheezing Bisacodyl (Dulcolax) 5 mg PO DAILY PRN PRN Reason: Constipation Clopidogrel Bisulfate (Plavix) 75 mg PO DAILY [facility] Last Admin: 06/13/17 08:09 Dose: 75 mg Dextrose/Water (Dextrose 50% In Water) 50 ml IVPUSH ASDIRECTED PRN PRN Reason: Hypoglycemia Diltiazem HCl (Cardizem Cd) 180 mg PO ACBRK [facility] Last Admin: 06/13/17 06:34 Dose: 180 mg Docusate Sodium (Colace) 100 mg PO BID PRN PRN Reason: Constipation Enalapril Maleate (Vasotec) 2.5 mg PO DAILY [facility] Last Admin: 06/13/17 08:08 Dose: 2.5 mg Famotidine (Pepcid) 20 mg PO DAILY [facility] Last Admin: 06/13/17 08:11 Dose: 20 mg Furosemide (Lasix) 20 mg PO DAILY [facility] Last Admin: 06/13/17 08:11 Dose: 20 mg Gabapentin (Neurontin) 100 mg PO BID [facility] Last Admin: 06/13/17 08:08 Dose: 100 mg Sodium Chloride (Normal Saline) 1,000 mls @ 100 mls/hr IV ASDIRECTED [facility] Last Admin: 06/12/17 23:58 Dose: 100 mls/hr Vancomycin HCl 1 gm/ Sodium (Chloride) 250 mls @ 250 mls/hr IV Q12H [facility] Ibuprofen (Motrin) 600 mg PO Q6H PRN PRN Reason: Pain/Fever Last Admin: 06/12/17 21:55 Dose: 600 mg Lorazepam (Ativan) 1 mg PO TID PRN PRN Reason: Other Metoprolol Succinate (Toprol Xl) 50 mg PO DAILY [facility] Last Admin: 06/13/17 08:10 Dose: 50 mg Ondansetron HCl (Zofran Odt) 4 mg PO Q6H PRN PRN Reason: nausea, able to take PO Ondansetron HCl (Zofran) 4 mg IV Q6H PRN PRN Reason: Nausea/Vomiting Insulin Glargine ( Tuojeo) 300 Unit/Ml Solostar Own Med 0 each SUBCUT BEDTIME [facility] Last Admin: 06/12/17 21:56 Dose: 40 each Insulin Glulisin ( Apidra) 100 Unit/Ml Solostar Own Med* * 0 each SUBCUT TIDMEALS PRN PRN Reason: BLOOD GLUCOSE Last Admin: 06/12/17 20:47 Dose: 3 each Polyethylene Glycol (Miralax) 17 gm PO DAILY PRN PRN Reason: Constipation Rivaroxaban (Xarelto) 20 mg PO BEDTIME [facility] Last Admin: 06/12/17 20:46 Dose: 20 mg Senna/Docusate Sodium (Senna Plus) 1 tab PO BID PRN PRN Reason: Constipation Tramadol HCl (Ultram) 50 mg PO QID PRN PRN Reason: Pain Vancomycin HCl (Pharmacy To Dose - Vancomycin) 1 dose .XX ASDIRECTED [facility] Discontinued Medications Acetaminophen (Tylenol) 975 mg PO NOW ONE Stop: 06/12/17 13:36 Last Admin: 06/12/17 13:48 Dose: 975 mg Hydrocodone Bitart/Acetaminophen ([place] 325-5 Mg) 2 tab PO Q4H PRN PRN Reason: Pain (moderate 4-6) Diltiazem HCl (Diltiazem) 10 mg IVPUSH ONETIME ONE Stop: 06/12/17 13:34 Last Admin: 06/12/17 13:51 Dose: 10 mg Diphtheria/Tetanus/Acell Pertussis (Adacel) 0.5 ml IM .ONCE ONE Stop: 06/13/17 08:19 Famotidine (Pepcid) 20 mg PO BID [facility] Last Admin: 06/12/17 21:13 Dose: Not Given Hydromorphone HCl (Dilaudid) 0.5 mg IVPUSH Q2H PRN PRN Reason: Pain (severe 7-10) Diltiazem HCl 125 mg/ Sodium (Chloride) 125 mls @ 10 mls/hr IV ASDIRECTED [facility] PRN Reason: 10 MG/HR Last Admin: 06/12/17 14:04 Dose: 10 mg/hr, 10 mls/hr Vancomycin HCl 1 gm/ Sodium (Chloride) 250 mls @ 250 mls/hr IV ONETIME ONE Stop: 06/12/17 14:38 Last Admin: 06/12/17 14:06 Dose: 250 mls/hr Vancomycin HCl 1 gm/Vancomycin HCl 250 mg/ Sodium Chloride 250 mls @ 250 mls/ hr IV Q24H [facility] Last Admin: 06/13/17 06:49 Dose: Not Given Magnesium Sulfate 2 gm/ Premix 50 mls @ 25 mls/hr IV ONETIME ONE Stop: 06/12/17 20:26 Last Admin: 06/12/17 18:57 Dose: 25 mls/hr Influenza Virus Vaccine (Fluzone High-Dose ) 180 mcg IM .ONCE ONE Stop: 06/12/17 17:01 Insulin Aspart (Novolog) 5 unit SUBCUT TID PRN PRN Reason: Blood Glucose - Exam General: Alert, Oriented HEENT: Pupils Equal, Pupils Reactive, EOMI, Mucous Membr. Moist/[place] Neck: Supple Lungs: Clear to Auscultation, Normal Respiratory Effort Cardiovascular: Regular Rate, Regular Rhythm GI/Abdominal Exam: Normal Bowel Sounds, Soft, Non-Tender, No Organomegaly, No Distention, No Abnormal Bruit, No Mass, Pelvis Stable Extremities: Normal Inspection, Normal Range of Motion, Non-Tender, No Pedal Edema, Normal Capillary Refill Skin: Other (RIGHT LEG, ERYTHEMA IS GOING DOWN, STILL ONE BULLEA ON CALF AREA) Neurological: No New Focal Deficit Psy/Mental Status: Alert, Normal Affect, Normal Mood - Problem List Review Problem List Initiated/Reviewed/Updated: Yes - My Orders Last 24 Hours: My Active Orders 06/13/17 01:29 EKG 12 Lead [EK] Routine 06/13/17 01:30 EKG Documentation Completion [RC] ASDIRECTED 06/13/17 08:18 Vaccines to be Administered [RC] PER UNIT ROUTINE 06/13/17 08:43 Admission Status [Patient Status] [ADT] Routine 06/13/17 09:00 Vancomycin [Vancocin] 1 gm Sodium Chloride 0.9% [Normal Saline] 250 ml IV Q12H - Plan Plan:: I/P: SEPSIS 2/2 Cellulitis of right lower extremity -WBC 5.85 -Neutrophils 79% -ESR 30 -CRP 2.3 -Lactic acid 1.1 -Fever of 102 in ED and tachycardia -Blood cultures pending -Right lower leg is erythematous, warm and has multiple blebs on on it. 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 outpatient -BNP 215; Spoke with PCP. Pt. was scheduled to get Echo but didn't show. She is requesting one. This seems reasonable - ordered. -Vancomycin 1g given in ED - continue -Of note: takes tramadol TID for pain and zosyn interacts; allergic to cephalosporins and PCNs. -No need to add naother abx unless if the pt kept having a fever A-fib with RVR now in NSR -Hx/o chronic a-fib -HR around 155 on arrival to ED -EKG in ED shows narrow complex tachycardia without well-defined he weighs. Possible sinus rhythm with a first-degree AV block versus accelerated junctional rhythm. Also possibility of atrial flutter\atrial fib with a variable block. Decreased voltages in limb leads. ST depression in V5 and V6. -Given 10 mg IVP diltiazem in ED followed by initiation of Diltiazem drip. -Rhythm converted in ED prior to arrival on floor. 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 -Continue to monitor Question of possible lung nodule in right upper lung overlying clavicle -Noncontrast chest CT scan recommended by Dr. Nowak -Will order for tomorrow Chronic: Anxiety - stable, home meds as ordered CAD with Hx/o stent placement - stable, home meds as ordered chronic Heart failure - Echo ordered, continue home meds HLD HTN - stable - meds as ordered Mild COPD - PRN meds as ordered Mild peripheral neupropathy - stable, meds as ordered Arthritis - pain meds as ordered osteoarthrits - pain meds as ordered Type II DM - Continue home insulin regimen; Discussed this with pts. PCP as he has had some skin reactions in past. Family brought these in. hx/o prostate cancer - urology following, last PSA was good Peripheral edema - home lasix Code Status: Full code. His PCP is ERIN Dejesus here at [facility]. hospital stay more than 96h 2/2 sepsis
[2017-06-13] MEDS: Ibuprofen 600 MG Tab PO PRN ×2 (09:41→21:42)
[2017-06-13] MEDS: Sodium Chloride 0.9% 1,000 ML IV SCH ×2 (09:58→19:47)
[2017-06-13] MEDS: INSULIN GLULISINE 100 UNIT/ML SUBCUT PRN (17:56)
[2017-06-13] MEDS: LORazepam 1 MG Tab PO PRN (18:44)
[2017-06-13] MEDS: Rivaroxaban 10 MG Tab PO SCH (20:42)
[2017-06-13] MEDS ORDERED: Metoprolol Tartrate 5 MG/5 ML SDV IVPUSH PRN (21:13)
[2017-06-13] MEDS: INSULIN GLARGINE 300 UNIT/ML SUBCUT SCH (22:26)
[2017-06-14] MEDS: Sodium Chloride 0.9% 1,000 ML IV SCH (05:37)
[2017-06-14] MEDS: Diltiazem 180 MG Cap.CD PO SCH (06:06)
[2017-06-14] MEDS: Metoprolol Succinate 50 MG Tab.ER PO SCH (08:26)
[2017-06-14] MEDS: Gabapentin 100 MG Cap PO SCH ×2 (08:26→20:24)
[2017-06-14] MEDS: Clopidogrel 75 MG Tab PO SCH (08:26)
[2017-06-14] MEDS: Furosemide 20 MG Tab PO SCH (08:26)
[2017-06-14] MEDS: Famotidine 20 MG Tab PO SCH (08:27)
--- NOTE | 2017-06-14 09:38 | PCM.PN ---
- General Info Date of Service: 06/14/17 Functional Status: Reports: Pain Controlled - Review of Systems General: Reports: No Symptoms HEENT: Reports: No Symptoms Pulmonary: Reports: No Symptoms Cardiovascular: Reports: No Symptoms Gastrointestinal: Reports: No Symptoms Genitourinary: Reports: No Symptoms Musculoskeletal: Reports: No Symptoms Skin: Reports: No Symptoms Neurological: Reports: No Symptoms Psychiatric: Reports: No Symptoms - Patient Data Vitals - Most Recent: Last Vital Signs Temp 97.5 F 06/14/17 08:00 Pulse 89 06/14/17 08:26 Resp 20 06/14/17 08:00 BP 118/66 06/14/17 08:26 Pulse Ox 95 06/14/17 08:00 Weight - Most Recent: 245 lb 3 oz I&O - Last 24 Hours: Intake & Output 06/13/17 06/14/17 06/14/17 22:59 06:59 14:59 Intake Total 1178 1532 0 Output Total 525 375 Balance 653 1157 0 Lab Results Last 24 Hours: Laboratory Results - last 24 hr 06/13/17 06/13/17 06/13/17 Range/Units 11:07 17:12 20:52 WBC (4.23-9.07) K/mm3 RBC (4.63-6.08) M/mm3 Hgb (13.7-17.5) gm/L Hct (40.1-51.0) % MCV (79.0-92.2) fl MCH (25.7-32.2) pg MCHC (32.2-35.5) g/dl RDW Std Deviation (35.1-43.9) fL Plt Count (163-337) K/mm3 MPV (9.4-12.3) fl Neut % (Auto) (34.0-67.9) % Lymph % (Auto) (21.8-53.1) % [place] % (Auto) (5.3-12.2) % Eos % (Auto) (0.8-7.0) Baso % (Auto) (0.1-1.2) % Neut # (Auto) (1.78-5.38) K/mm3 Lymph # (Auto) (1.32-3.57) K/mm3 [place] # (Auto) (0.30-0.82) K/mm3 Eos # (Auto) (0.04-0.54) K/mm3 Baso # (Auto) (0.01-0.08) K/mm3 Sodium (136-145) mEq/L Potassium (3.5-5.1) mEq/L Chloride (98-107) mEq/L Carbon Dioxide (21-32) mEq/L Anion Gap (5-15) BUN (7-18) mg/dL Creatinine (0.7-1.3) mg/dL Est Cr Clr Drug Dosing mL/min Estimated GFR (MDRD) (>60) mL/min BUN/Creatinine Ratio (14-18) Glucose (83-115) mg/dL POC Glucose 79 L 150 H 94 (83-110) mg/dL Calcium (8.5-10.1) mg/dL Magnesium (1.8-2.4) mg/dl C-Reactive Protein (<1.0) mg/dL 06/14/17 06/14/17 06/14/17 Range/Units 06:02 06:34 06:34 WBC 3.34 L (4.23-9.07) K/mm3 RBC 4.03 L (4.63-6.08) M/mm3 Hgb 12.8 L (13.7-17.5) gm/L Hct 39.8 L (40.1-51.0) % MCV 98.8 H (79.0-92.2) fl MCH 31.8 (25.7-32.2) pg MCHC 32.2 (32.2-35.5) g/dl RDW Std Deviation 48.2 H (35.1-43.9) fL Plt Count 170 (163-337) K/mm3 MPV 9.7 (9.4-12.3) fl Neut % (Auto) 73.6 H (34.0-67.9) % Lymph % (Auto) 15.0 L (21.8-53.1) % [place] % (Auto) 5.1 L (5.3-12.2) % Eos % (Auto) 5.4 (0.8-7.0) Baso % (Auto) 0.3 (0.1-1.2) % Neut # (Auto) 2.46 (1.78-5.38) K/mm3 Lymph # (Auto) 0.50 L (1.32-3.57) K/mm3 [place] # (Auto) 0.17 L (0.30-0.82) K/mm3 Eos # (Auto) 0.18 (0.04-0.54) K/mm3 Baso # (Auto) 0.01 (0.01-0.08) K/mm3 Sodium 140 (136-145) mEq/L Potassium 4.0 (3.5-5.1) mEq/L Chloride 107 (98-107) mEq/L Carbon Dioxide 24 (21-32) mEq/L Anion Gap 13.0 (5-15) BUN 13 (7-18) mg/dL Creatinine 1.1 (0.7-1.3) mg/dL Est Cr Clr Drug Dosing 55.35 mL/min Estimated GFR (MDRD) > 60 (>60) mL/min BUN/Creatinine Ratio 11.8 L (14-18) Glucose 113 (83-115) mg/dL POC Glucose 141 H (83-110) mg/dL Calcium 7.9 L (8.5-10.1) mg/dL Magnesium 1.9 (1.8-2.4) mg/dl C-Reactive Protein 9.5 H* (<1.0) mg/dL Med Orders - Current: Current Medications Acetaminophen (Tylenol) 650 mg PO Q4H PRN PRN Reason: Pain (Mild 1-3)/fever Last Admin: 06/13/17 20:41 Dose: 650 mg Albuterol/Ipratropium (Duoneb 3.0-0.5 Mg/3 Ml) 3 ml NEB Q4H PRN PRN Reason: Shortness Of Breath/wheezing Bisacodyl (Dulcolax) 5 mg PO DAILY PRN PRN Reason: Constipation Clopidogrel Bisulfate (Plavix) 75 mg PO DAILY [facility] Last Admin: 06/14/17 08:26 Dose: 75 mg Dextrose/Water (Dextrose 50% In Water) 50 ml IVPUSH ASDIRECTED PRN PRN Reason: Hypoglycemia Diltiazem HCl (Cardizem Cd) 240 mg PO ACBRK [facility] Docusate Sodium (Colace) 100 mg PO BID PRN PRN Reason: Constipation Enalapril Maleate (Vasotec) 2.5 mg PO DAILY [facility] Last Admin: 06/14/17 08:26 Dose: 2.5 mg Famotidine (Pepcid) 20 mg PO DAILY [facility] Last Admin: 06/14/17 08:27 Dose: 20 mg Furosemide (Lasix) 20 mg PO DAILY [facility] Last Admin: 06/14/17 08:26 Dose: 20 mg Gabapentin (Neurontin) 100 mg PO BID [facility] Last Admin: 06/14/17 08:26 Dose: 100 mg Vancomycin HCl 1 gm/ Sodium (Chloride) 250 mls @ 250 mls/hr IV Q12H [facility] Last Admin: 06/14/17 08:26 Dose: 250 mls/hr Ibuprofen (Motrin) 600 mg PO Q6H PRN PRN Reason: Pain/Fever Last Admin: 06/13/17 21:42 Dose: 600 mg Lorazepam (Ativan) 1 mg PO TID PRN PRN Reason: Other Last Admin: 06/13/17 18:44 Dose: 1 mg Metoprolol Succinate (Toprol Xl) 50 mg PO DAILY [facility] Last Admin: 06/14/17 08:26 Dose: 50 mg Metoprolol Tartrate (Lopressor) 5 mg IVPUSH Q4H PRN PRN Reason: Tachycardia Ondansetron HCl (Zofran Odt) 4 mg PO Q6H PRN PRN Reason: nausea, able to take PO Ondansetron HCl (Zofran) 4 mg IV Q6H PRN PRN Reason: Nausea/Vomiting Insulin Glargine ( Tuojeo) 300 Unit/Ml Solostar Own Med 0 each SUBCUT BEDTIME [facility] Last Admin: 06/13/17 22:26 Dose: Not Given Insulin Glulisin ( Apidra) 100 Unit/Ml Solostar Own Med* * 0 each SUBCUT TIDMEALS PRN PRN Reason: BLOOD GLUCOSE Last Admin: 06/13/17 17:56 Dose: 4 each Polyethylene Glycol (Miralax) 17 gm PO DAILY PRN PRN Reason: Constipation Rivaroxaban (Xarelto) 20 mg PO BEDTIME [facility] Last Admin: 06/13/17 20:42 Dose: 20 mg Senna/Docusate Sodium (Senna Plus) 1 tab PO BID PRN PRN Reason: Constipation Tramadol HCl (Ultram) 50 mg PO QID PRN PRN Reason: Pain Vancomycin HCl (Pharmacy To Dose - Vancomycin) 1 dose .XX ASDIRECTED [facility] Discontinued Medications Acetaminophen (Tylenol) 975 mg PO NOW ONE Stop: 06/12/17 13:36 Last Admin: 06/12/17 13:48 Dose: 975 mg Hydrocodone Bitart/Acetaminophen ([place] 325-5 Mg) 2 tab PO Q4H PRN PRN Reason: Pain (moderate 4-6) Diltiazem HCl (Diltiazem) 10 mg IVPUSH ONETIME ONE Stop: 06/12/17 13:34 Last Admin: 06/12/17 13:51 Dose: 10 mg Diltiazem HCl (Cardizem Cd) 180 mg PO ACBRK [facility] Last Admin: 06/14/17 06:06 Dose: 180 mg Diphtheria/Tetanus/Acell Pertussis (Adacel) 0.5 ml IM .ONCE ONE Stop: 06/13/17 08:19 Famotidine (Pepcid) 20 mg PO BID [facility] Last Admin: 06/12/17 21:13 Dose: Not Given Hydromorphone HCl (Dilaudid) 0.5 mg IVPUSH Q2H PRN PRN Reason: Pain (severe 7-10) Diltiazem HCl 125 mg/ Sodium (Chloride) 125 mls @ 10 [facility]ls[facility] PR[facility] Reason: 10 MG/HR Last Admin: 06/12/17 14:04 Dose: 10 mg/hr, 10 mls/hr Sodium Chloride (Normal Saline) 1,000 mls @ 100 mls/hr IV [facility] Last Admin: 06/14/17 05:37 Dose: 100 mls/hr Vancomycin HCl 1 gm/ Sodium (Chloride) 250 mls @ 250 mls/hr IV ONETIME ONE Stop: 06/12/17 14:38 Last Admin: 06/12/17 14:06 Dose: 250 mls/hr Vancomycin HCl 1 gm/Vancomycin HCl 250 mg/ Sodium Chloride 250 mls @ 250 mls/ hr IV Q24H [facility] Last Admin: 06/13/17 06:49 Dose: Not Given Magnesium Sulfate 2 gm/ Premix 50 mls @ 25 mls/hr IV ONETIME ONE Stop: 06/12/17 20:26 Last Admin: 06/12/17 18:57 Dose: 25 mls/hr Influenza Virus Vaccine (Fluzone High-Dose 2017-18) 180 mcg IM .ONCE ONE Stop: 06/12/17 17:01 Insulin Aspart (Novolog) 5 unit SUBCUT TID PRN PRN Reason: Blood Glucose - Exam General: Alert, Oriented HEENT: Pupils Equal, Pupils Reactive, EOMI, Mucous Membr. Moist/[place] Neck: Supple Lungs: Clear to Auscultation, Normal Respiratory Effort Cardiovascular: Regular Rate, Regular Rhythm GI/Abdominal Exam: Normal Bowel Sounds, Soft, Non-Tender, No Organomegaly, No Distention, No Abnormal Bruit, No Mass, Pelvis Stable Extremities: Normal Inspection, Normal Range of Motion, Non-Tender, No Pedal Edema, Normal Capillary Refill Skin: Other (redness and bleb at right leg) - Problem List Review Problem List Initiated/Reviewed/Updated: Yes - My Orders Last 24 Hours: My Active Orders 06/13/17 08:43 Admission Status [Patient Status] [ADT] Routine 06/13/17 09:00 Vancomycin [Vancocin] 1 gm Sodium Chloride 0.9% [Normal Saline] 250 ml IV Q12H 06/14/17 09:33 Diltiazem [Cardizem CD] 240 mg PO ACBRK - Plan Plan:: I/P: SEPSIS 2/2 Cellulitis of right lower extremity -Fever of 102 in ED and tachycardia -Blood cultures pending -Right lower leg is erythematous, warm and has multiple blebs on on it. 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 outpatient -BNP 215; Spoke with PCP. Pt. was scheduled to get Echo but didn't show. She is requesting one. This seems reasonable - ordered-->EF 55% with grade II dystolic dysfunction. -Vancomycin 1g given in ED - continue -No need to add another abx unless if the pt kept having a fever A-fib with RVR now in NSR -Hx/o chronic a-fib -HR around 155 on arrival to ED -EKG in ED shows narrow complex tachycardia without well-defined he weighs. Possible sinus rhythm with a first-degree AV block versus accelerated junctional rhythm. Also possibility of atrial flutter\atrial fib with a variable block. Decreased voltages in limb leads. ST depression in V5 and V6. -Given 10 mg IVP diltiazem in ED followed by initiation of Diltiazem drip. -Rhythm converted in ED prior to arrival on floor. 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 -Continue to monitor -06/14 will increase cardizem CD to 240 mg Question of possible lung nodule in right upper lung overlying clavicle -Noncontrast chest CT scan recommended by Dr. Nowak Chronic: Anxiety - stable, home meds as ordered CAD with Hx/o stent placement - stable, home meds as ordered chronic Heart failure - Echo ordered, continue home meds HLD HTN - stable - meds as ordered Mild COPD - PRN meds as ordered Mild peripheral neupropathy - stable, meds as ordered Arthritis - pain meds as ordered osteoarthrits - pain meds as ordered Type II DM - Continue home insulin regimen; Discussed this with pts. PCP as he has had some skin reactions in past. Family brought these in. hx/o prostate cancer - urology following, last PSA was good Peripheral edema - home lasix Code Status: Full code. His PCP is ERIN Dejesus here at . hospital stay more than 96h 2/2 sepsis
[2017-06-14] MEDS: INSULIN GLULISINE 100 UNIT/ML SUBCUT PRN ×2 (12:04→17:12)
[2017-06-14] MEDS: Diltiazem IR 60 MG Tab PO SCH ×2 (12:06→20:24)
[2017-06-14] MEDS: traMADol 50 MG Tab PO PRN (12:06)
[2017-06-14] MEDS: LORazepam 1 MG Tab PO PRN ×2 (12:07→18:34)
--- NOTE | 2017-06-14 15:42 | CT ---
CT chest Technique: Multiple axial sections through the chest were obtained. Intravenous contrast was not utilized. Comparison: Prior chest x-ray of 06/12/17, no previous chest CT. Findings: No right upper lung nodule is seen as questioned on recent chest x-ray. Density on chest x-ray is felt to represent small sclerotic area within the right clavicle as an incidental note (bone island). Small bilateral pleural effusions are seen on both sides with adjacent compressive atelectasis. Lungs otherwise are clear. Mediastinum and hilar regions show no adenopathy or mass. Atherosclerotic calcification is noted within the thoracic aorta. Coronary artery calcification is also seen. No pericardial thickening is seen. Small portion of the visualized upper abdominal structures are within normal limits. Scattered degenerative endplate spurring is seen within the spine. No acute bony abnormality is appreciated. Impression: 1. No pulmonary nodule is seen as questioned on chest x-ray. Nodule on chest x-ray likely correlates to a bone island within the clavicle. 2. Small bilateral pleural effusions with mild compressive type atelectasis within both lung bases. 3. Other nonacute findings as noted above. Diagnostic code #3
[2017-06-14] MEDS: Acetaminophen 325 MG Tab PO PRN (20:20)
[2017-06-14] MEDS: Rivaroxaban 10 MG Tab PO SCH (20:25)
[2017-06-14] MEDS: INSULIN GLARGINE 300 UNIT/ML SUBCUT SCH (21:11)
[2017-06-15] MEDS: INSULIN GLARGINE 300 UNIT/ML SUBCUT SCH ×2 (03:00→21:22)
[2017-06-15] MEDS: Diltiazem 240 MG Cap.ER PO SCH (06:04)
[2017-06-15] MEDS: Furosemide 20 MG Tab PO SCH (08:43)
[2017-06-15] MEDS: Metoprolol Succinate 50 MG Tab.ER PO SCH (08:43)
[2017-06-15] MEDS: Clopidogrel 75 MG Tab PO SCH (08:44)
[2017-06-15] MEDS: Famotidine 20 MG Tab PO SCH (08:44)
[2017-06-15] MEDS: Gabapentin 100 MG Cap PO SCH ×2 (08:44→21:25)
[2017-06-15] MEDS: INSULIN GLULISINE 100 UNIT/ML SUBCUT PRN ×3 (08:55→17:30)
--- NOTE | 2017-06-15 09:18 | PCM.PN ---
- General Info Date of Service: 06/15/17 Functional Status: Reports: Pain Controlled - Review of Systems General: Reports: Fever HEENT: Reports: No Symptoms Pulmonary: Reports: No Symptoms Cardiovascular: Reports: No Symptoms Gastrointestinal: Reports: No Symptoms Genitourinary: Reports: No Symptoms Musculoskeletal: Reports: No Symptoms Skin: Reports: No Symptoms Neurological: Reports: No Symptoms Psychiatric: Reports: No Symptoms - Patient Data Vitals - Most Recent: Last Vital Signs Temp 99.8 F 06/15/17 08:00 Pulse 109 H 06/15/17 08:43 Resp 16 06/15/17 08:00 BP 128/71 06/15/17 08:44 Pulse Ox 96 06/15/17 08:00 Weight - Most Recent: 243 lb 14.4 oz I&O - Last 24 Hours: Intake & Output 06/14/17 06/15/17 06/15/17 22:59 06:59 14:59 Intake Total 970 Output Total 200 Balance -200 970 Lab Results Last 24 Hours: Laboratory Results - last 24 hr 06/14/17 06/14/17 06/14/17 Range/Units 11:45 17:09 20:23 WBC (4.23-9.07) K/mm3 RBC (4.63-6.08) M/mm3 Hgb (13.7-17.5) gm/L Hct (40.1-51.0) % MCV (79.0-92.2) fl MCH (25.7-32.2) pg MCHC (32.2-35.5) g/dl RDW Std Deviation (35.1-43.9) fL Plt Count (163-337) K/mm3 MPV (9.4-12.3) fl Neut % (Auto) (34.0-67.9) % Lymph % (Auto) (21.8-53.1) % Cook % (Auto) (5.3-12.2) % Eos % (Auto) (0.8-7.0) Baso % (Auto) (0.1-1.2) % Neut # (Auto) (1.78-5.38) K/mm3 Lymph # (Auto) (1.32-3.57) K/mm3 Cook # (Auto) (0.30-0.82) K/mm3 Eos # (Auto) (0.04-0.54) K/mm3 Baso # (Auto) (0.01-0.08) K/mm3 Sodium (136-145) mEq/L Potassium (3.5-5.1) mEq/L Chloride (98-107) mEq/L Carbon Dioxide (21-32) mEq/L Anion Gap (5-15) BUN (7-18) mg/dL Creatinine (0.7-1.3) mg/dL Est Cr Clr Drug Dosing mL/min Estimated GFR (MDRD) (>60) mL/min BUN/Creatinine Ratio (14-18) Glucose (83-115) mg/dL POC Glucose 192 H 191 H 149 H (83-110) mg/dL Calcium (8.5-10.1) mg/dL Magnesium (1.8-2.4) mg/dl C-Reactive Protein (<1.0) mg/dL Vancomycin Trough (10.0-20.0) 06/14/17 06/15/17 06/15/17 Range/Units 20:40 02:52 06:05 WBC 4.89 (4.23-9.07) K/mm3 RBC 4.09 L (4.63-6.08) M/mm3 Hgb 13.1 L (13.7-17.5) gm/L Hct 40.1 (40.1-51.0) % MCV 98.0 H (79.0-92.2) fl MCH 32.0 (25.7-32.2) pg MCHC 32.7 (32.2-35.5) g/dl RDW Std Deviation 47.8 H (35.1-43.9) fL Plt Count 186 (163-337) K/mm3 MPV 9.9 (9.4-12.3) fl Neut % (Auto) 66.9 (34.0-67.9) % Lymph % (Auto) 17.4 L (21.8-53.1) % Cook % (Auto) 10.2 (5.3-12.2) % Eos % (Auto) 4.9 (0.8-7.0) Baso % (Auto) 0.6 (0.1-1.2) % Neut # (Auto) 3.27 (1.78-5.38) K/mm3 Lymph # (Auto) 0.85 L (1.32-3.57) K/mm3 Cook # (Auto) 0.50 (0.30-0.82) K/mm3 Eos # (Auto) 0.24 (0.04-0.54) K/mm3 Baso # (Auto) 0.03 (0.01-0.08) K/mm3 Sodium (136-145) mEq/L Potassium (3.5-5.1) mEq/L Chloride (98-107) mEq/L Carbon Dioxide (21-32) mEq/L Anion Gap (5-15) BUN (7-18) mg/dL Creatinine (0.7-1.3) mg/dL Est Cr Clr Drug Dosing mL/min Estimated GFR (MDRD) (>60) mL/min BUN/Creatinine Ratio (14-18) Glucose (83-115) mg/dL POC Glucose 197 H (83-110) mg/dL Calcium (8.5-10.1) mg/dL Magnesium (1.8-2.4) mg/dl C-Reactive Protein (<1.0) mg/dL Vancomycin Trough 16.9 (10.0-20.0) 06/15/17 06/15/17 06/15/17 Range/Units 06:05 06:05 08:22 WBC (4.23-9.07) K/mm3 RBC (4.63-6.08) M/mm3 Hgb (13.7-17.5) gm/L Hct (40.1-51.0) % MCV (79.0-92.2) fl MCH (25.7-32.2) pg MCHC (32.2-35.5) g/dl RDW Std Deviation (35.1-43.9) fL Plt Count (163-337) K/mm3 MPV (9.4-12.3) fl Neut % (Auto) (34.0-67.9) % Lymph % (Auto) (21.8-53.1) % Cook % (Auto) (5.3-12.2) % Eos % (Auto) (0.8-7.0) Baso % (Auto) (0.1-1.2) % Neut # (Auto) (1.78-5.38) K/mm3 Lymph # (Auto) (1.32-3.57) K/mm3 Cook # (Auto) (0.30-0.82) K/mm3 Eos # (Auto) (0.04-0.54) K/mm3 Baso # (Auto) (0.01-0.08) K/mm3 Sodium 140 (136-145) mEq/L Potassium 4.0 (3.5-5.1) mEq/L Chloride 105 (98-107) mEq/L Carbon Dioxide 26 (21-32) mEq/L Anion Gap 13.0 (5-15) BUN 11 (7-18) mg/dL Creatinine 1.1 (0.7-1.3) mg/dL Est Cr Clr Drug Dosing 55.35 mL/min Estimated GFR (MDRD) > 60 (>60) mL/min BUN/Creatinine Ratio 10.0 L (14-18) Glucose 146 H (83-115) mg/dL POC Glucose 162 H 191 H (83-110) mg/dL Calcium 8.1 L (8.5-10.1) mg/dL Magnesium 1.8 (1.8-2.4) mg/dl C-Reactive Protein 7.0 H* (<1.0) mg/dL Vancomycin Trough (10.0-20.0) Med Orders - Current: Current Medications Acetaminophen (Tylenol) 650 mg PO Q4H PRN PRN Reason: Pain (Mild 1-3)/fever Last Admin: 06/14/17 20:20 Dose: 650 mg Albuterol/Ipratropium (Duoneb 3.0-0.5 Mg/3 Ml) 3 ml NEB Q4H PRN PRN Reason: Shortness Of Breath/wheezing Bisacodyl (Dulcolax) 5 mg PO DAILY PRN PRN Reason: Constipation Last Admin: 06/15/17 08:45 Dose: 5 mg Clopidogrel Bisulfate (Plavix) 75 mg PO DAILY [facility] Last Admin: 06/15/17 08:44 Dose: 75 mg Dextrose/Water (Dextrose 50% In Water) 50 ml IVPUSH ASDIRECTED PRN PRN Reason: Hypoglycemia Diltiazem HCl (Dilacor Xr) 240 mg PO ACBRK [facility] Last Admin: 06/15/17 06:04 Dose: 240 mg Docusate Sodium (Colace) 100 mg PO BID PRN PRN Reason: Constipation Enalapril Maleate (Vasotec) 2.5 mg PO DAILY [facility] Last Admin: 06/15/17 08:44 Dose: 2.5 mg Famotidine (Pepcid) 20 mg PO DAILY [facility] Last Admin: 06/15/17 08:44 Dose: 20 mg Furosemide (Lasix) 20 mg PO DAILY [facility] Last Admin: 06/15/17 08:43 Dose: 20 mg Gabapentin (Neurontin) 100 mg PO BID [facility] Last Admin: 06/15/17 08:44 Dose: 100 mg Levofloxacin/Dextrose 750 mg/ (Premix) 150 mls @ 100 mls/hr IV Q24H [facility] Metronidazole 500 mg/ Premix 100 mls @ 100 mls/hr IV Q8H [facility] Vancomycin HCl 1 gm/ Sodium (Chloride) 250 mls @ 250 mls/hr IV Q12H [facility] Last Admin: 06/15/17 08:45 Dose: 250 mls/hr Ibuprofen (Motrin) 600 mg PO Q6H PRN PRN Reason: Pain/Fever Last Admin: 06/13/17 21:42 Dose: 600 mg Lorazepam (Ativan) 1 mg PO TID PRN PRN Reason: Other Last Admin: 06/14/17 18:34 Dose: 1 mg Metoprolol Succinate (Toprol Xl) 50 mg PO DAILY [facility] Last Admin: 06/15/17 08:43 Dose: 50 mg Metoprolol Tartrate (Lopressor) 5 mg IVPUSH Q4H PRN PRN Reason: Tachycardia Ondansetron HCl (Zofran Odt) 4 mg PO Q6H PRN PRN Reason: nausea, able to take PO Ondansetron HCl (Zofran) 4 mg IV Q6H PRN PRN Reason: Nausea/Vomiting Insulin Glargine ( Tuojeo) 300 Unit/Ml Solostar Own Med 0 each SUBCUT BEDTIME [facility] Last Admin: 06/15/17 03:00 Dose: 40 each Insulin Glulisin ( Apidra) 100 Unit/Ml Solostar Own Med* * 0 each SUBCUT TIDMEALS PRN PRN Reason: BLOOD GLUCOSE Last Admin: 06/15/17 08:55 Dose: 6 each Polyethylene Glycol (Miralax) 17 gm PO DAILY PRN PRN Reason: Constipation Rivaroxaban (Xarelto) 20 mg PO BEDTIME [facility] Last Admin: 06/14/17 20:25 Dose: 20 mg Senna/Docusate Sodium (Senna Plus) 1 tab PO BID PRN PRN Reason: Constipation Tramadol HCl (Ultram) 50 mg PO QID PRN PRN Reason: Pain Last Admin: 06/14/17 12:06 Dose: 50 mg Vancomycin HCl (Pharmacy To Dose - Vancomycin) 1 dose .XX ASDIRECTED [facility] Discontinued Medications Acetaminophen (Tylenol) 975 mg PO NOW ONE Stop: 06/12/17 13:36 Last Admin: 06/12/17 13:48 Dose: 975 mg Hydrocodone Bitart/Acetaminophen ([place] 325-5 Mg) 2 tab PO Q4H PRN PRN Reason: Pain (moderate 4-6) Diltiazem HCl (Diltiazem) 10 mg IVPUSH ONETIME ONE Stop: 06/12/17 13:34 Last Admin: 06/12/17 13:51 Dose: 10 mg Diltiazem HCl (Cardizem Cd) 180 mg PO ACBRK [facility] Last Admin: 06/14/17 06:06 Dose: 180 mg Diltiazem HCl (Cardizem) 30 mg PO Q8H [place] Stop: 06/14/17 20:01 Last Admin: 06/14/17 20:24 Dose: 30 mg Diphtheria/Tetanus/Acell Pertussis (Adacel) 0.5 ml IM .ONCE ONE Stop: 06/13/17 08:19 Famotidine (Pepcid) 20 mg PO BID [facility] Last Admin: 06/12/17 21:13 Dose: Not Given Hydromorphone HCl (Dilaudid) 0.5 mg IVPUSH Q2H PRN PRN Reason: Pain (severe 7-10) Diltiazem HCl 125 mg/ Sodium (Chloride) 125 mls @ 10 mls/hr IV ASDIRECTED [facility] PRN Reason: 10 MG/HR Last Admin: 06/12/17 14:04 Dose: 10 mg/hr, 10 mls/hr Sodium Chloride (Normal Saline) 1,000 mls @ 100 mls/hr IV ASDIRECTED [facility] Last Admin: 06/14/17 05:37 Dose: 100 mls/hr Vancomycin HCl 1 gm/ Sodium (Chloride) 250 mls @ 250 mls/hr IV ONETIME ONE Stop: 06/12/17 14:38 Last Admin: 06/12/17 14:06 Dose: 250 mls/hr Vancomycin HCl 1 gm/Vancomycin HCl 250 mg/ Sodium Chloride 250 mls @ 250 mls/ hr IV Q24H [facility] Last Admin: 06/13/17 06:49 Dose: Not Given Magnesium Sulfate 2 gm/ Premix 50 mls @ 25 mls/hr IV ONETIME ONE Stop: 06/12/17 20:26 Last Admin: 06/12/17 18:57 Dose: 25 mls/hr Vancomycin HCl 1 gm/ Sodium (Chloride) 250 mls @ 250 mls/hr IV Q12H [facility] Stop: 06/14/17 23:00 Last Admin: 06/14/17 20:28 Dose: 250 mls/hr Vancomycin HCl 750 mg/ Sodium (Chloride) 250 mls @ 166.667 mls/hr IV Q12H [facility] Influenza Virus Vaccine (Fluzone High-Dose ) 180 mcg IM .ONCE ONE Stop: 06/12/17 17:01 Insulin Aspart (Novolog) 5 unit SUBCUT TID PRN PRN Reason: Blood Glucose - Exam General: Alert, Oriented HEENT: Pupils Equal, Pupils Reactive, EOMI, Mucous Membr. Moist/[place] Neck: Supple Lungs: Clear to Auscultation, Normal Respiratory Effort Cardiovascular: Regular Rate, Regular Rhythm GI/Abdominal Exam: Normal Bowel Sounds, Soft, Non-Tender, No Organomegaly, No Distention, No Abnormal Bruit, No Mass, Pelvis Stable Extremities: Normal Inspection, Normal Range of Motion, Non-Tender, Normal Capillary Refill, Pedal Edema Skin: Other (redness on right leg is better, bleb burst) Neurological: No New Focal Deficit Psy/Mental Status: Alert, Normal Affect, Normal Mood - Problem List Review Problem List Initiated/Reviewed/Updated: Yes - My Orders Last 24 Hours: My Active Orders 06/14/17 12:00 Diltiazem IR [Cardizem] 60 mg PO Q8H 06/15/17 06:00 Diltiazem [Dilacor XR] 240 mg PO ACBRK 06/15/17 08:00 metroNIDAZOLE/Normal Saline [Flagyl 500 MG in NS 100 ML] 500 mg Premix Bag 1 bag IV Q8H 06/15/17 09:00 Vancomycin 750 mg Sodium Chloride 0.9% [Normal Saline] 250 ml IV Q12H Vancomycin [Vancocin] 1 gm Sodium Chloride 0.9% [Normal Saline] 250 ml IV Q12H 06/15/17 10:00 Levofloxacin/Dextrose 5%-Water [Levaquin in D5W 750 MG/150 ML] 750 mg Premix Bag 1 bag IV Q24H - Plan Plan:: I/P: SEPSIS 2/2 Cellulitis of right lower extremity -Fever of 102 in ED and tachycardia -Blood cultures pending -Right lower leg is erythematous, warm and has multiple blebs on on it. 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 outpatient -BNP 215; Spoke with PCP. Pt. was scheduled to get Echo but didn't show. She is requesting one. This seems reasonable - ordered-->EF 55% with grade II dystolic dysfunction. -Vancomycin 1g given in ED - continue -06/15 pt spike fever last night to 102, his CRP still elevated, will add flagyl and levaquin to cover gram neg and anaerobes, pt is DM A-fib with RVR now in NSR -Hx/o chronic a-fib -HR around 155 on arrival to ED -EKG in ED shows narrow complex tachycardia without well-defined he weighs. Possible sinus rhythm with a first-degree AV block versus accelerated junctional rhythm. Also possibility of atrial flutter\atrial fib with a variable block. Decreased voltages in limb leads. ST depression in V5 and V6. -Given 10 mg IVP diltiazem in ED followed by initiation of Diltiazem drip. -Rhythm converted in ED prior to arrival on floor. -Will hold diltiazem drip for now -Continuous lunchroom monitor -PO home dose diltiazem in AM pending no changes overnight -Repeat 12-lead shows sinus rhythm with first degree HB. -Continue to monitor -06/14 will increase cardizem CD to 240 mg -06/15 Will increase his BB to 100 BID Question of possible lung nodule in right upper lung overlying clavicle -Noncontrast chest CT scan recommended by Dr. Nowak --> no lung nodule on CT Chronic: Anxiety - stable, home meds as ordered CAD with Hx/o stent placement - stable, home meds as ordered chronic Heart failure - Echo ordered, continue home meds HLD HTN - stable - meds as ordered Mild COPD - PRN meds as ordered Mild peripheral neupropathy - stable, meds as ordered Arthritis - pain meds as ordered osteoarthrits - pain meds as ordered Type II DM - Continue home insulin regimen; Discussed this with pts. PCP as he has had some skin reactions in past. Family brought these in. hx/o prostate cancer - urology following, last PSA was good Peripheral edema - home lasix Code Status: Full code. His PCP is ERIN Dejesus here at [facility]. hospital stay more than 96h 2/2 sepsis
[2017-06-15] MEDS ORDERED: Metoprolol Succinate 50 MG Tab.ER PO ONE (09:30)
[2017-06-15] MEDS: Levofloxacin/Dextrose 5%-Water 750 MG in Premix Bag 1 BAG IV SCH (09:30)
[2017-06-15] MEDS: metroNIDAZOLE/Normal Saline 500 MG in Premix Bag 1 BAG IV SCH ×2 (09:35→16:10)
[2017-06-15] MEDS: LORazepam 1 MG Tab PO PRN ×2 (09:52→21:26)
[2017-06-15] MEDS ORDERED: Hydrocortisone 1% Crm 30 GM Tube TOP PRN (13:08)
[2017-06-15] MEDS: Rivaroxaban 10 MG Tab PO SCH (21:25)
[2017-06-16] MEDS: metroNIDAZOLE/Normal Saline 500 MG in Premix Bag 1 BAG IV SCH ×4 (01:20→23:11)
[2017-06-16] MEDS: Diltiazem 240 MG Cap.ER PO SCH (06:48)
[2017-06-16] MEDS: traMADol 50 MG Tab PO PRN ×2 (06:48→21:36)
[2017-06-16] MEDS: LORazepam 1 MG Tab PO PRN ×3 (06:55→21:37)
[2017-06-16] MEDS: Furosemide 20 MG Tab PO SCH (08:26)
[2017-06-16] MEDS: Metoprolol Succinate 50 MG Tab.ER PO SCH (08:26)
[2017-06-16] MEDS: Clopidogrel 75 MG Tab PO SCH (08:27)
[2017-06-16] MEDS: Famotidine 20 MG Tab PO SCH (08:27)
[2017-06-16] MEDS: Gabapentin 100 MG Cap PO SCH ×2 (08:27→21:36)
[2017-06-16] MEDS: Levofloxacin/Dextrose 5%-Water 750 MG in Premix Bag 1 BAG IV SCH (09:35)
--- NOTE | 2017-06-16 12:48 | PCM.PN ---
- General Info Date of Service: 06/16/17 Functional Status: Reports: Pain Controlled, Tolerating Diet, Ambulating, Urinating - Review of Systems General: Reports: No Symptoms HEENT: Reports: No Symptoms Pulmonary: Reports: No Symptoms Cardiovascular: Reports: No Symptoms Gastrointestinal: Reports: No Symptoms Genitourinary: Reports: No Symptoms Musculoskeletal: Reports: No Symptoms Skin: Reports: No Symptoms, Other (no drainage; decreased redness) Neurological: Reports: No Symptoms Psychiatric: Reports: No Symptoms - Patient Data Vitals - Most Recent: Last Vital Signs Temp 36.4 C 06/16/17 08:11 Pulse 89 06/16/17 08:26 Resp 19 06/16/17 08:11 BP 118/65 06/16/17 08:26 Pulse Ox 96 06/16/17 08:11 Weight - Most Recent: 110.54 kg I&O - Last 24 Hours: Intake & Output 06/15/17 06/16/17 06/16/17 22:59 06:59 14:59 Intake Total 700 1150 Balance 700 1150 Lab Results Last 24 Hours: Laboratory Results - last 24 hr 06/15/17 06/15/17 06/15/17 Range/Units 13:39 17:26 21:18 WBC (4.23-9.07) K/mm3 RBC (4.63-6.08) M/mm3 Hgb (13.7-17.5) gm/L Hct (40.1-51.0) % MCV (79.0-92.2) fl MCH (25.7-32.2) pg MCHC (32.2-35.5) g/dl RDW Std Deviation (35.1-43.9) fL Plt Count (163-337) K/mm3 MPV (9.4-12.3) fl Neut % (Auto) (34.0-67.9) % Lymph % (Auto) (21.8-53.1) % Stewart % (Auto) (5.3-12.2) % Eos % (Auto) (0.8-7.0) Baso % (Auto) (0.1-1.2) % Neut # (Auto) (1.78-5.38) K/mm3 Lymph # (Auto) (1.32-3.57) K/mm3 Stewart # (Auto) (0.30-0.82) K/mm3 Eos # (Auto) (0.04-0.54) K/mm3 Baso # (Auto) (0.01-0.08) K/mm3 Sodium (136-145) mEq/L Potassium (3.5-5.1) mEq/L Chloride (98-107) mEq/L Carbon Dioxide (21-32) mEq/L Anion Gap (5-15) BUN (7-18) mg/dL Creatinine (0.7-1.3) mg/dL Est Cr Clr Drug Dosing mL/min Estimated GFR (MDRD) (>60) mL/min BUN/Creatinine Ratio (14-18) Glucose (83-115) mg/dL POC Glucose 203 H 163 H 167 H (83-110) mg/dL Calcium (8.5-10.1) mg/dL Magnesium (1.8-2.4) mg/dl C-Reactive Protein (<1.0) mg/dL Vancomycin Trough (10.0-20.0) 06/16/17 06/16/17 06/16/17 Range/Units 05:15 05:15 06:46 WBC 4.20 L (4.23-9.07) K/mm3 RBC 3.84 L (4.63-6.08) M/mm3 Hgb 12.1 L (13.7-17.5) gm/L Hct 37.2 L (40.1-51.0) % MCV 96.9 H (79.0-92.2) fl MCH 31.5 (25.7-32.2) pg MCHC 32.5 (32.2-35.5) g/dl RDW Std Deviation 45.1 H (35.1-43.9) fL Plt Count 195 (163-337) K/mm3 MPV 10.1 (9.4-12.3) fl Neut % (Auto) 56.4 (34.0-67.9) % Lymph % (Auto) 25.0 (21.8-53.1) % Stewart % (Auto) 11.0 (5.3-12.2) % Eos % (Auto) 6.7 (0.8-7.0) Baso % (Auto) 0.7 (0.1-1.2) % Neut # (Auto) 2.37 (1.78-5.38) K/mm3 Lymph # (Auto) 1.05 L (1.32-3.57) K/mm3 Stewart # (Auto) 0.46 (0.30-0.82) K/mm3 Eos # (Auto) 0.28 (0.04-0.54) K/mm3 Baso # (Auto) 0.03 (0.01-0.08) K/mm3 Sodium 139 (136-145) mEq/L Potassium 3.7 (3.5-5.1) mEq/L Chloride 106 (98-107) mEq/L Carbon Dioxide 25 (21-32) mEq/L Anion Gap 11.7 (5-15) BUN 10 (7-18) mg/dL Creatinine 0.9 (0.7-1.3) mg/dL Est Cr Clr Drug Dosing 67.65 mL/min Estimated GFR (MDRD) > 60 (>60) mL/min BUN/Creatinine Ratio 11.1 L (14-18) Glucose 123 H (83-115) mg/dL POC Glucose 107 (83-110) mg/dL Calcium 8.5 (8.5-10.1) mg/dL Magnesium 1.8 (1.8-2.4) mg/dl C-Reactive Protein 7.0 H* (<1.0) mg/dL Vancomycin Trough (10.0-20.0) 06/16/17 Range/Units 08:30 WBC (4.23-9.07) K/mm3 RBC (4.63-6.08) M/mm3 Hgb (13.7-17.5) gm/L Hct (40.1-51.0) % MCV (79.0-92.2) fl MCH (25.7-32.2) pg MCHC (32.2-35.5) g/dl RDW Std Deviation (35.1-43.9) fL Plt Count (163-337) K/mm3 MPV (9.4-12.3) fl Neut % (Auto) (34.0-67.9) % Lymph % (Auto) (21.8-53.1) % Stewart % (Auto) (5.3-12.2) % Eos % (Auto) (0.8-7.0) Baso % (Auto) (0.1-1.2) % Neut # (Auto) (1.78-5.38) K/mm3 Lymph # (Auto) (1.32-3.57) K/mm3 Stewart # (Auto) (0.30-0.82) K/mm3 Eos # (Auto) (0.04-0.54) K/mm3 Baso # (Auto) (0.01-0.08) K/mm3 Sodium (136-145) mEq/L Potassium (3.5-5.1) mEq/L Chloride (98-107) mEq/L Carbon Dioxide (21-32) mEq/L Anion Gap (5-15) BUN (7-18) mg/dL Creatinine (0.7-1.3) mg/dL Est Cr Clr Drug Dosing mL/min Estimated GFR (MDRD) (>60) mL/min BUN/Creatinine Ratio (14-18) Glucose (83-115) mg/dL POC Glucose (83-110) mg/dL Calcium (8.5-10.1) mg/dL Magnesium (1.8-2.4) mg/dl C-Reactive Protein (<1.0) mg/dL Vancomycin Trough 11.4 (10.0-20.0) Theron Results Last 24 Hours: Microbiology 06/14/17 20:38 Wound Culture - Preliminary Leg, Right Med Orders - Current: Current Medications Acetaminophen (Tylenol) 650 mg PO Q4H PRN PRN Reason: Pain (Mild 1-3)/fever Last Admin: 06/14/17 20:20 Dose: 650 mg Albuterol/Ipratropium (Duoneb 3.0-0.5 Mg/3 Ml) 3 ml NEB Q4H PRN PRN Reason: Shortness Of Breath/wheezing Bisacodyl (Dulcolax) 5 mg PO DAILY PRN PRN Reason: Constipation Last Admin: 06/15/17 08:45 Dose: 5 mg Clopidogrel Bisulfate (Plavix) 75 mg PO DAILY [facility] Last Admin: 06/16/17 08:27 Dose: 75 mg Dextrose/Water (Dextrose 50% In Water) 50 ml IVPUSH ASDIRECTED PRN PRN Reason: Hypoglycemia Diltiazem HCl (Dilacor Xr) 240 mg PO ACBRK [facility] Last Admin: 06/16/17 06:48 Dose: 240 mg Docusate Sodium (Colace) 100 mg PO BID PRN PRN Reason: Constipation Enalapril Maleate (Vasotec) 2.5 mg PO DAILY [facility] Last Admin: 06/16/17 08:26 Dose: 2.5 mg Famotidine (Pepcid) 20 mg PO DAILY [facility] Last Admin: 06/16/17 08:27 Dose: 20 mg Furosemide (Lasix) 20 mg PO DAILY [facility] Last Admin: 06/16/17 08:26 Dose: 20 mg Gabapentin (Neurontin) 100 mg PO BID [facility] Last Admin: 06/16/17 08:27 Dose: 100 mg Hydrocortisone (Hydrocortisone 1% Crm) 0 gm TOP TID PRN PRN Reason: Itching Last Admin: 06/16/17 08:41 Dose: 1 applic Levofloxacin/Dextrose 750 mg/ (Premix) 150 mls @ 100 mls/hr IV Q24H [facility] Last Admin: 06/16/17 09:35 Dose: 100 mls/hr Metronidazole 500 mg/ Premix 100 mls @ 100 mls/hr IV Q8H [facility] Last Admin: 06/16/17 08:25 Dose: 100 mls/hr Vancomycin HCl 1 gm/ Sodium (Chloride) 250 mls @ 250 mls/hr IV Q12H [facility] Last Admin: 06/16/17 11:01 Dose: 250 mls/hr Ibuprofen (Motrin) 600 mg PO Q6H PRN PRN Reason: Pain/Fever Last Admin: 06/13/17 21:42 Dose: 600 mg Lorazepam (Ativan) 1 mg PO TID PRN PRN Reason: Other Last Admin: 06/16/17 06:55 Dose: 1 mg Metoprolol Succinate (Toprol Xl) 100 mg PO DAILY [facility] Last Admin: 06/16/17 08:26 Dose: 100 mg Metoprolol Tartrate (Lopressor) 5 mg IVPUSH Q4H PRN PRN Reason: Tachycardia Ondansetron HCl (Zofran Odt) 4 mg PO Q6H PRN PRN Reason: nausea, able to take PO Ondansetron HCl (Zofran) 4 mg IV Q6H PRN PRN Reason: Nausea/Vomiting Insulin Glargine ( Tuojeo) 300 Unit/Ml Solostar Own Med 0 each SUBCUT BEDTIME [facility] Last Admin: 06/15/17 21:22 Dose: 44 each Insulin Glulisin ( Apidra) 100 Unit/Ml Solostar Own Med* * 0 each SUBCUT TIDMEALS PRN PRN Reason: BLOOD GLUCOSE Last Admin: 06/15/17 17:30 Dose: 4 each Polyethylene Glycol (Miralax) 17 gm PO DAILY PRN PRN Reason: Constipation Rivaroxaban (Xarelto) 20 mg PO BEDTIME [facility] Last Admin: 06/15/17 21:25 Dose: 20 mg Senna/Docusate Sodium (Senna Plus) 1 tab PO BID PRN PRN Reason: Constipation Tramadol HCl (Ultram) 50 mg PO QID PRN PRN Reason: Pain Last Admin: 06/16/17 06:48 Dose: 50 mg Vancomycin HCl (Pharmacy To Dose - Vancomycin) 1 dose .XX ASDIRECTED [facility] Discontinued Medications Acetaminophen (Tylenol) 975 mg PO NOW ONE Stop: 06/12/17 13:36 Last Admin: 06/12/17 13:48 Dose: 975 mg Hydrocodone Bitart/Acetaminophen ([place] 325-5 Mg) 2 tab PO Q4H PRN PRN Reason: Pain (moderate 4-6) Diltiazem HCl (Diltiazem) 10 mg IVPUSH ONETIME ONE Stop: 06/12/17 13:34 Last Admin: 06/12/17 13:51 Dose: 10 mg Diltiazem HCl (Cardizem Cd) 180 mg PO ACBRK [facility] Last Admin: 06/14/17 06:06 Dose: 180 mg Diltiazem HCl (Cardizem) 30 mg PO Q8H [facility] Stop: 06/14/17 20:01 Last Admin: 06/14/17 20:24 Dose: 30 mg Diphtheria/Tetanus/Acell Pertussis (Adacel) 0.5 ml IM .ONCE ONE Stop: 06/13/17 08:19 Famotidine (Pepcid) 20 mg PO BID [facility] Last Admin: 06/12/17 21:13 Dose: Not Given Hydromorphone HCl (Dilaudid) 0.5 mg IVPUSH Q2H PRN PRN Reason: Pain (severe 7-10) Diltiazem HCl 125 mg/ Sodium (Chloride) 125 mls @ 10 mls/hr IV ASDIRECTED [facility] PRN Reason: 10 MG/HR Last Admin: 06/12/17 14:04 Dose: 10 mg/hr, 10 mls/hr Sodium Chloride (Normal Saline) 1,000 mls @ 100 mls/hr IV ASDIRECTED [facility] Last Admin: 06/14/17 05:37 Dose: 100 mls/hr Vancomycin HCl 1 gm/ Sodium (Chloride) 250 mls @ 250 mls/hr IV ONETIME ONE Stop: 06/12/17 14:38 Last Admin: 06/12/17 14:06 Dose: 250 mls/hr Vancomycin HCl 1 gm/Vancomycin HCl 250 mg/ Sodium Chloride 250 mls @ 250 mls/ hr IV Q24H [facility] Last Admin: 06/13/17 06:49 Dose: Not Given Magnesium Sulfate 2 gm/ Premix 50 mls @ 25 mls/hr IV ONETIME ONE Stop: 06/12/17 20:26 Last Admin: 06/12/17 18:57 Dose: 25 mls/hr Vancomycin HCl 1 gm/ Sodium (Chloride) 250 mls @ 250 mls/hr IV Q12H [facility] Stop: 06/14/17 23:00 Last Admin: 06/14/17 20:28 Dose: 250 mls/hr Vancomycin HCl 750 mg/ Sodium (Chloride) 250 mls @ 166.667 mls/hr IV Q12H [facility] Influenza Virus Vaccine (Fluzone High-Dose 2016-) 180 mcg IM .ONCE ONE Stop: 06/12/17 17:01 Insulin Aspart (Novolog) 5 unit SUBCUT TID PRN PRN Reason: Blood Glucose Metoprolol Succinate (Toprol Xl) 50 mg PO DAILY [facility] Last Admin: 06/15/17 08:43 Dose: 50 mg Metoprolol Succinate (Toprol Xl) 50 mg PO ONETIME ONE Stop: 06/15/17 09:31 Last Admin: 06/15/17 09:47 Dose: 50 mg - Exam Quality Assessment: DVT Prophylaxis General: Alert, Oriented, Cooperative, No Acute Distress HEENT: Pupils Equal, Pupils Reactive, EOMI Neck: Supple, Trachea Midline Lungs: Normal Respiratory Effort Cardiovascular: Regular Rate, Irregular Rhythm GI/Abdominal Exam: Normal Bowel Sounds, Soft, Non-Tender, No Organomegaly, No Distention (Male) Exam: Deferred Back Exam: Normal Inspection Extremities: Normal Inspection, Non-Tender, Pedal Edema (trace) Skin: Warm, Rash (improving) Wound/Incisions: Healing Well, Erythema Improving Neurological: No New Focal Deficit, Normal Gait, Normal Speech Psy/Mental Status: Alert, Normal Affect, Normal Mood - Problem List Review Problem List Initiated/Reviewed/Updated: Yes - Plan Plan:: I/P: SEPSIS 2/2 Cellulitis of right lower extremity -Fever of 102 in ED and tachycardia -Blood cultures pending -Right lower leg is erythematous, warm and has multiple blebs on on it. 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 outpatient -BNP 215; Spoke with PCP. Pt. was scheduled to get Echo but didn't show. She is requesting one. This seems reasonable - ordered-->EF 55% with grade II dystolic dysfunction. -Vancomycin 1g given in ED - continue -06/15 pt spike fever last night to 102, his CRP still elevated, will add flagyl and levaquin to cover gram neg and anaerobes, pt is DM A-fib with RVR now in NSR -Hx/o chronic a-fib -HR around 155 on arrival to ED -EKG in ED shows narrow complex tachycardia without well-defined he weighs. Possible sinus rhythm with a first-degree AV block versus accelerated junctional rhythm. Also possibility of atrial flutter\atrial fib with a variable block. Decreased voltages in limb leads. ST depression in V5 and V6. -Given 10 mg IVP diltiazem in ED followed by initiation of Diltiazem drip. -Rhythm converted in ED prior to arrival on floor. -Will hold diltiazem drip for now -Continuous security monitor -PO home dose diltiazem in AM pending no changes overnight -Repeat 12-lead shows sinus rhythm with first degree HB. -Continue to monitor -06/14 will increase cardizem CD to 240 mg -06/15 Will increase his BB to 100 BID Question of possible lung nodule in right upper lung overlying clavicle -Noncontrast chest CT scan recommended by Dr. Nowak --> no lung nodule on CT Chronic: Anxiety - stable, home meds as ordered CAD with Hx/o stent placement - stable, home meds as ordered chronic Heart failure - Echo ordered, continue home meds HLD HTN - stable - meds as ordered Mild COPD - PRN meds as ordered Mild peripheral neupropathy - stable, meds as ordered Arthritis - pain meds as ordered osteoarthrits - pain meds as ordered Type II DM - Continue home insulin regimen; Discussed this with pts. PCP as he has had some skin reactions in past. Family brought these in. hx/o prostate cancer - urology following, last PSA was good Peripheral edema - home lasix Code Status: Full code. His PCP is ERIN Dejesus here at [facility]. hospital stay more than 96h 2/2 sepsis
[2017-06-16] MEDS: INSULIN GLULISINE 100 UNIT/ML SUBCUT PRN ×3 (13:35→21:47)
[2017-06-16] MEDS: Rivaroxaban 10 MG Tab PO SCH (21:37)
[2017-06-16] MEDS: INSULIN GLARGINE 300 UNIT/ML SUBCUT SCH (21:38)
[2017-06-17] MEDS: Diltiazem 240 MG Cap.ER PO SCH (06:38)
[2017-06-17] MEDS: LORazepam 1 MG Tab PO PRN (06:39)
[2017-06-17] MEDS: traMADol 50 MG Tab PO PRN (06:39)
[2017-06-17] MEDS: metroNIDAZOLE/Normal Saline 500 MG in Premix Bag 1 BAG IV SCH ×2 (08:40→16:14)
[2017-06-17] MEDS: Metoprolol Succinate 50 MG Tab.ER PO SCH (08:46)
[2017-06-17] MEDS: Gabapentin 100 MG Cap PO SCH ×2 (08:48→20:36)
[2017-06-17] MEDS: Clopidogrel 75 MG Tab PO SCH (08:49)
[2017-06-17] MEDS: Simvastatin 20 MG Tab PO SCH (08:50)
[2017-06-17] MEDS: Famotidine 20 MG Tab PO SCH (08:52)
[2017-06-17] MEDS: Furosemide 20 MG Tab PO SCH (08:53)
[2017-06-17] MEDS: INSULIN GLULISINE 100 UNIT/ML SUBCUT PRN ×2 (11:41→18:21)
[2017-06-17] MEDS: Levofloxacin/Dextrose 5%-Water 750 MG in Premix Bag 1 BAG IV SCH (13:07)
--- NOTE | 2017-06-17 13:59 | PCM.PN ---
- General Info Date of Service: 06/17/17 Functional Status: Reports: Pain Controlled, Tolerating Diet, Ambulating, Urinating - Review of Systems General: Reports: No Symptoms HEENT: Reports: No Symptoms Pulmonary: Reports: No Symptoms Cardiovascular: Reports: No Symptoms Gastrointestinal: Reports: No Symptoms Genitourinary: Reports: No Symptoms Musculoskeletal: Reports: No Symptoms Skin: Reports: No Symptoms Neurological: Reports: No Symptoms Psychiatric: Reports: No Symptoms - Patient Data Vitals - Most Recent: Last Vital Signs Temp 36.2 C 06/17/17 08:05 Pulse 86 06/17/17 08:46 Resp 19 06/17/17 08:05 BP 111/57 L 06/17/17 08:53 Pulse Ox 98 06/17/17 08:05 Weight - Most Recent: 110.54 kg I&O - Last 24 Hours: Intake & Output 06/16/17 06/17/17 06/17/17 22:59 06:59 14:59 Intake Total 1050 1050 Output Total 900 Balance 150 1050 Lab Results Last 24 Hours: Laboratory Results - last 24 hr 06/16/17 06/16/17 06/17/17 Range/Units 16:51 20:37 06:27 POC Glucose 127 H 192 H 85 (83-110) mg/dL 06/17/17 Range/Units 10:58 POC Glucose 180 H (83-110) mg/dL Theron Results Last 24 Hours: Microbiology 06/14/17 20:38 Wound Culture - Preliminary Leg, Right Med Orders - Current: Current Medications Acetaminophen (Tylenol) 650 mg PO Q4H PRN PRN Reason: Pain (Mild 1-3)/fever Last Admin: 06/14/17 20:20 Dose: 650 mg Albuterol/Ipratropium (Duoneb 3.0-0.5 Mg/3 Ml) 3 ml NEB Q4H PRN PRN Reason: Shortness Of Breath/wheezing Bisacodyl (Dulcolax) 5 mg PO DAILY PRN PRN Reason: Constipation Last Admin: 06/15/17 08:45 Dose: 5 mg Cholecalciferol (Vitamin D3) 1,000 units PO DAILY [facility] Clopidogrel Bisulfate (Plavix) 75 mg PO DAILY [facility] Last Admin: 06/17/17 08:49 Dose: 75 mg Dextrose/Water (Dextrose 50% In Water) 50 ml IVPUSH ASDIRECTED PRN PRN Reason: Hypoglycemia Diltiazem HCl (Dilacor Xr) 240 mg PO ACBRK [facility] Last Admin: 06/17/17 06:38 Dose: 240 mg Docusate Sodium (Colace) 100 mg PO BID PRN PRN Reason: Constipation Enalapril Maleate (Vasotec) 2.5 mg PO DAILY [facility] Last Admin: 06/17/17 08:53 Dose: 2.5 mg Famotidine (Pepcid) 20 mg PO DAILY [facility] Last Admin: 06/17/17 08:52 Dose: 20 mg Furosemide (Lasix) 20 mg PO DAILY [facility] Last Admin: 06/17/17 08:53 Dose: 20 mg Gabapentin (Neurontin) 100 mg PO BID [facility] Last Admin: 06/17/17 08:48 Dose: 100 mg Hydrocortisone (Hydrocortisone 1% Crm) 0 gm TOP TID PRN PRN Reason: Itching Last Admin: 06/16/17 08:41 Dose: 1 applic Levofloxacin/Dextrose 750 mg/ (Premix) 150 mls @ 100 mls/hr IV Q24H [facility] Last Admin: 06/17/17 13:07 Dose: 100 mls/hr Metronidazole 500 mg/ Premix 100 mls @ 100 mls/hr IV Q8H [facility] Last Admin: 06/17/17 08:40 Dose: 100 mls/hr Vancomycin HCl 1 gm/ Sodium (Chloride) 250 mls @ 250 mls/hr IV Q12H [facility] Last Admin: 06/17/17 11:28 Dose: 250 mls/hr Ibuprofen (Motrin) 600 mg PO Q6H PRN PRN Reason: Pain/Fever Last Admin: 06/13/17 21:42 Dose: 600 mg Lorazepam (Ativan) 1 mg PO TID PRN PRN Reason: Other Last Admin: 06/17/17 06:39 Dose: 1 mg Metoprolol Succinate (Toprol Xl) 100 mg PO DAILY [facility] Last Admin: 06/17/17 08:46 Dose: 100 mg Metoprolol Tartrate (Lopressor) 5 mg IVPUSH Q4H PRN PRN Reason: Tachycardia Ondansetron HCl (Zofran Odt) 4 mg PO Q6H PRN PRN Reason: nausea, able to take PO Ondansetron HCl (Zofran) 4 mg IV Q6H PRN PRN Reason: Nausea/Vomiting Insulin Glargine ( Tuojeo) 300 Unit/Ml Solostar Own Med 0 each SUBCUT BEDTIME [facility] Last Admin: 06/16/17 21:38 Dose: 44 each Insulin Glulisin ( Apidra) 100 Unit/Ml [facility] Own Med* * 0 each SUBCUT TIDMEALS PRN PRN Reason: BLOOD GLUCOSE Last Admin: 06/17/17 11:41 Dose: 6 each Polyethylene Glycol (Miralax) 17 gm PO DAILY PRN PRN Reason: Constipation Rivaroxaban (Xarelto) 20 mg PO BEDTIME [facility] Last Admin: 06/16/17 21:37 Dose: 20 mg Senna/Docusate Sodium (Senna Plus) 1 tab PO BID PRN PRN Reason: Constipation Simvastatin (Zocor) 10 mg PO DAILY [facility] Last Admin: 06/17/17 08:50 Dose: 10 mg Tramadol HCl (Ultram) 50 mg PO QID PRN PRN Reason: Pain Last Admin: 06/17/17 06:39 Dose: 50 mg Vancomycin HCl (Pharmacy To Dose - Vancomycin) 1 dose .XX ASDIRECTED [facility] Discontinued Medications Acetaminophen (Tylenol) 975 mg PO NOW ONE Stop: 06/12/17 13:36 Last Admin: 06/12/17 13:48 Dose: 975 mg Hydrocodone Bitart/Acetaminophen ([place] 325-5 Mg) 2 tab PO Q4H PRN PRN Reason: Pain (moderate 4-6) Diltiazem HCl (Diltiazem) 10 mg IVPUSH ONETIME ONE Stop: 06/12/17 13:34 Last Admin: 06/12/17 13:51 Dose: 10 mg Diltiazem HCl (Cardizem Cd) 180 mg PO ACBRK [facility] Last Admin: 06/14/17 06:06 Dose: 180 mg Diltiazem HCl (Cardizem) 30 mg PO Q8H [facility] Stop: 06/14/17 20:01 Last Admin: 06/14/17 20:24 Dose: 30 mg Diphtheria/Tetanus/Acell Pertussis (Adacel) 0.5 ml IM .ONCE ONE Stop: 06/13/17 08:19 Famotidine (Pepcid) 20 mg PO BID [facility] Last Admin: 06/12/17 21:13 Dose: Not Given Hydromorphone HCl (Dilaudid) 0.5 mg IVPUSH Q2H PRN PRN Reason: Pain (severe 7-10) Diltiazem HCl 125 mg/ Sodium (Chloride) 125 mls @ 10 mls/hr IV ASDIRECTED [facility] PRN Reason: 10 MG/HR Last Admin: 06/12/17 14:04 Dose: 10 mg/hr, 10 mls/hr Sodium Chloride (Normal Saline) 1,000 mls @ 100 mls/hr IV ASDIRECTED [facility] Last Admin: 06/14/17 05:37 Dose: 100 mls/hr Vancomycin HCl 1 gm/ Sodium (Chloride) 250 mls @ 250 mls/hr IV ONETIME ONE Stop: 06/12/17 14:38 Last Admin: 06/12/17 14:06 Dose: 250 mls/hr Vancomycin HCl 1 gm/Vancomycin HCl 250 mg/ Sodium Chloride 250 mls @ 250 mls/ hr IV Q24H [facility] Last Admin: 06/13/17 06:49 Dose: Not Given Magnesium Sulfate 2 gm/ Premix 50 mls @ 25 mls/hr IV ONETIME ONE Stop: 06/12/17 20:26 Last Admin: 06/12/17 18:57 Dose: 25 mls/hr Vancomycin HCl 1 gm/ Sodium (Chloride) 250 mls @ 250 mls/hr IV Q12H [facility] Stop: 06/14/17 23:00 Last Admin: 06/14/17 20:28 Dose: 250 mls/hr Vancomycin HCl 750 mg/ Sodium (Chloride) 250 mls @ 166.667 mls/hr IV Q12H [facility] Influenza Virus Vaccine (Fluzone High-Dose ) 180 mcg IM .ONCE ONE Stop: 06/12/17 17:01 Insulin Aspart (Novolog) 5 unit SUBCUT TID PRN PRN Reason: Blood Glucose Metoprolol Succinate (Toprol Xl) 50 mg PO DAILY [facility] Last Admin: 06/15/17 08:43 Dose: 50 mg Metoprolol Succinate (Toprol Xl) 50 mg PO ONETIME ONE Stop: 06/15/17 09:31 Last Admin: 06/15/17 09:47 Dose: 50 mg - Exam Quality Assessment: DVT Prophylaxis General: Alert, Oriented, Cooperative, No Acute Distress HEENT: Pupils Equal, Pupils Reactive, EOMI Neck: Supple, Trachea Midline, No JVD Lungs: Clear to Auscultation, Normal Respiratory Effort Cardiovascular: Regular Rate, Irregular Rhythm GI/Abdominal Exam: Normal Bowel Sounds, Soft, Non-Tender, No Organomegaly, No Distention (Male) Exam: Deferred Back Exam: Normal Inspection Extremities: Normal Inspection, Pedal Edema (trace) Skin: Warm, Dry Wound/Incisions: Healing Well, Erythema Improving Neurological: No New Focal Deficit, Normal Gait, Normal Speech Psy/Mental Status: Alert, Normal Affect, Normal Mood - Problem List Review Problem List Initiated/Reviewed/Updated: Yes - My Orders Last 24 Hours: My Active Orders 06/17/17 09:00 Simvastatin [Zocor] 10 mg PO DAILY 06/17/17 14:00 Cholecalciferol (Vitamin D3) [Vitamin D3] 1,000 units PO DAILY - Plan Plan:: I/P: SEPSIS 2/2 Cellulitis of right lower extremity -Fever of 102 in ED and tachycardia -Blood cultures pending -Right lower leg is erythematous, warm and has multiple blebs on on it. 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 outpatient -BNP 215; Spoke with PCP. Pt. was scheduled to get Echo but didn't show. She is requesting one. This seems reasonable - ordered-->EF 55% with grade II dystolic dysfunction. -Vancomycin 1g given in ED - continue -06/15 pt spike fever last night to 102, his CRP still elevated, will add flagyl and levaquin to cover gram neg and anaerobes, pt is DM A-fib with RVR now in NSR -Hx/o chronic a-fib -HR around 155 on arrival to ED -EKG in ED shows narrow complex tachycardia without well-defined he weighs. Possible sinus rhythm with a first-degree AV block versus accelerated junctional rhythm. Also possibility of atrial flutter\atrial fib with a variable block. Decreased voltages in limb leads. ST depression in V5 and V6. -Given 10 mg IVP diltiazem in ED followed by initiation of Diltiazem drip. -Rhythm converted in ED prior to arrival on floor. -Will hold diltiazem drip for now -Continuous [employer] monitor -PO home dose diltiazem in AM pending no changes overnight -Repeat 12-lead shows sinus rhythm with first degree HB. -Continue to monitor -06/14 will increase cardizem CD to 240 mg -06/15 Will increase his BB to 100 BID Question of possible lung nodule in right upper lung overlying clavicle -Noncontrast chest CT scan recommended by Dr. Nowak --> no lung nodule on CT Chronic: Anxiety - stable, home meds as ordered CAD with Hx/o stent placement - stable, home meds as ordered chronic Heart failure - Echo ordered, continue home meds HLD HTN - stable - meds as ordered Mild COPD - PRN meds as ordered Mild peripheral neupropathy - stable, meds as ordered Arthritis - pain meds as ordered osteoarthrits - pain meds as ordered Type II DM - Continue home insulin regimen; Discussed this with pts. PCP as he has had some skin reactions in past. Family brought these in. hx/o prostate cancer - urology following, last PSA was good Peripheral edema - home lasix Code Status: Full code. His PCP is ERIN Dejesus here at [facility]. hospital stay more than 96h 2/2 sepsis DC expected 06/18/17 on Levoquin
[2017-06-17] MEDS: Cholecalciferol (Vitamin D3) 1,000 Unit Tab PO SCH (14:12)
[2017-06-17] MEDS: Rivaroxaban 10 MG Tab PO SCH (20:36)
[2017-06-17] MEDS: INSULIN GLARGINE 300 UNIT/ML SUBCUT SCH (20:53)
[2017-06-18] MEDS: metroNIDAZOLE/Normal Saline 500 MG in Premix Bag 1 BAG IV SCH ×2 (00:33→08:43)
[2017-06-18] MEDS: LORazepam 1 MG Tab PO PRN ×2 (04:06→12:32)
[2017-06-18] MEDS: Diltiazem 240 MG Cap.ER PO SCH (06:42)
[2017-06-18] MEDS: Metoprolol Succinate 50 MG Tab.ER PO SCH (08:37)
[2017-06-18] MEDS: Gabapentin 100 MG Cap PO SCH (08:37)
[2017-06-18] MEDS: Famotidine 20 MG Tab PO SCH (08:38)
[2017-06-18] MEDS: Simvastatin 20 MG Tab PO SCH (08:38)
[2017-06-18] MEDS: traMADol 50 MG Tab PO PRN (08:39)
[2017-06-18] MEDS: Furosemide 20 MG Tab PO SCH (08:39)
[2017-06-18] MEDS: Clopidogrel 75 MG Tab PO SCH (08:39)
[2017-06-18] MEDS: Cholecalciferol (Vitamin D3) 1,000 Unit Tab PO SCH (08:39)
--- NOTE | 2017-06-18 10:04 | PCM.DCSUM1 ---
Discharge Summary - Hospital Course Free Text/Narrative:: Shannon Page is a 77 yo male who presented to our ED today with increased pain , redness, and swelling to his right lower extremity. His leg has reportedly been red and swollen for 2-3 weeks with intermittent oozing fluid. He reports that has developed blebs or "large bubbles" that breakdown and lose serous fluid. This morning he spiked temperature around 104. He's also had difficulty keeping form express rigors today. He contacted his primary care provider and they gave him a Bactrim prescription. He is taking 1 tablet thus far. He does have a history of A. fib and on presentation his pulse was very high. His reportedly 155 at presentation. He reportedly feels very ill. He's had no appetite. He is also insulin-dependent diabetic, however his blood sugars have been running normal. He is also on daily Lasix. Once in the ED an EKG was obtained. A narrow complex tachycardia without well- defined P waves was noted. Possible sinus rhythm with a first-degree AV block versus accelerated junctional rhythm. Also possibility of atrial flutter\\A. fib with a variable block. Rate was 141 bpm. Pulses were decreased in the legs due to his thick chest. There is mildly depressed ST segment in V6 and V5. It was noted as a borderline EKG. This is interpreted by the ED provider. Temp was 102. Respirations were 26. Blood pressure 142/78. Labs are obtained: 30 BC 5.85. Hemoglobin 14.3. Hematocrit 43.4. He was macrocytic. Platelets 210,000. Neutrophils were elevated at 79%. Band neutrophils were noted at 1%. ESR was elevated at 60. PT was 13.4. INR 121. Sodium 140. Potassium 4.0. Chloride 104. Carbon dioxide 26. Anion gap 14.0. BUN 10. Creatinine 1.3. EGFR 53. Glucose 100. Calcium 8.8. Magnesium low at 1.6. Total bilirubin 0.7. Liver enzymes looked good with AST of 16, ALT at 20, alkaline phosphatase 86. CK-MB was good at 0.7. Troponin was negative at less than 0.017. CRP was slightly elevated at 2.3. ProBNP was good at 2:15. Protein was good at 7.4. Albumin was slightly low at 3.2. UA was ordered and shows trace occult blood. UA is otherwise normal. Acetaminophen was given for fever. Diltiazem 10 mg IV push was given. Diltiazem drip was also started. Vancomycin 1 g was initiated in the ED. It is noted in the ED that he does have a nonproductive cough however, lungs are clear without any obvious signs of jugular venous distention fluid overload. He does have dependent edema in both lower extremities. Chest x-ray was obtained and interpreted by Dr. Nowak , radiologist, as 1. Questionable right upper lung nodule. Noncontrast chest CT recommended to further evaluate. 2. Nothing acute is otherwise seen on portable chest x-ray. He responded well to the Cardizem and did convert to normal sinus rhythm. Blood pressure was 117/63 and heart rate in the 90s prior to being admitted to the floor. Due to some noted aching in his fingers and wrists see her as it is also ordered and found to be 6.0. He caries a history of: Anxiety, CAD with Hx/o stenting, Chronic A. fib treated with Xarelto, heart failure, HLD, HTN, mild COPD, arthritis, chronic back pain, psoriasis, osteoarthritis, mild peripheral neuropathy in both lower extremities , type 2 diabetes controlled with insulin and diet, chronic peripheral edema, and hx/o prostate cancer. He is reportedly a former smoker. He subsequently admitted to the ICU. He is a full code. His PCP is MADISON Dejesus, here at [facility]. - Discharge Data Discharge Date: 06/18/17 (admit 06/12/17) Discharge Disposition: Home, Self-Care 01 Condition: Good - Discharge Diagnosis/Problem(s) (1) Acute febrile illness SNOMED Code(s): 252197542 ICD Code: R50.9 - FEVER, UNSPECIFIED Status: Resolved Priority: High (2) Cellulitis of right lower extremity SNOMED Code(s): 231169439 ICD Code: L03.115 - CELLULITIS OF RIGHT LOWER LIMB Status: Acute Priority : High (3) Chronic atrial fibrillation with RVR SNOMED Code(s): 468651633 ICD Code: I48.2 - CHRONIC ATRIAL FIBRILLATION Status: Chronic Priority: High (4) HTN (hypertension) SNOMED Code(s): 86498333 ICD Code: I10 - ESSENTIAL (PRIMARY) HYPERTENSION Status: Chronic Priority : Medium Qualifiers: Hypertension type: essential hypertension Qualified Code(s): I10 - Essential (primary) hypertension (5) Type 2 diabetes mellitus, with long-term current use of insulin SNOMED Code(s): 080320160 ICD Code: E11.9 - TYPE 2 DIABETES MELLITUS WITHOUT COMPLICATIONS; Z79.4 - COUTURE ALTERATIONS DRESSMAKER (CURRENT) USE OF INSULIN Status: Chronic Priority: High Qualifiers: Diabetes mellitus complication status: with skin complications Diabetes mellitus complication detail: with other skin ulcer Qualified Code(s): E11.622 - Type 2 diabetes mellitus with other skin ulcer; Z79.4 - terminal worker ( current) use of insulin; Z79.4 - senior care (current) use of insulin; Z79.4 - terminal worker (current) use of insulin; Z79.4 - terminal worker (current) use of insulin (6) Pedal edema SNOMED Code(s): 261638475 ICD Code: R60.0 - LOCALIZED EDEMA Status: Chronic Priority: High - Patient Summary/Data Operative Procedure(s) Performed: None Complications: None Consults: Consultations 06/12/17 17:23 Consult to Case Management [CONS] Routine Consult to Field Engineer [CONS] Routine Consult to Spiritual Care [CONS] Routine OT Evaluation and Treatment [CONS] Routine PT Evaluation and Treatment [CONS] Routine Labs Pending at D/C: None Recommended Follow-up Testing/Procedures: Weigh your self daily and keep a record for your doctor. Check blood sugars as per your prior routine. Follow up with PCP, ERIN Dejesus within 5-7 days of discharge. Planned Operative Procedure(s) after DC: None Hospital Course: I/P: SEPSIS 2/2 Cellulitis of right lower extremity -Fever of 102 in ED and tachycardia -Blood cultures = negative -Right lower leg is erythematous, warm and has multiple blebs on on it-- Cellulitis likely cause -If leg begins to weep fluid culture wound -Hx/o chronic pedal edema extending up to knees -Discoloration to legs bilaterally - questioning venous stasis; I spoke with PCP and he has never been formally diagnosed -Consider peripheral vascular testing as infection resolves vs. outpatient -BNP 215; Spoke with PCP. Pt. was scheduled to get Echo but didn't show. He is now requesting one; results= EF 55% with grade II dystolic dysfunction. -Vancomycin 1g given in ED - continue for course of hospital stay -06/15 pt spike fever last night to 102, his CRP still elevated, will add flagyl and levaquin to cover gram neg and anaerobes, pt is DM A-fib with RVR now in NSR -Hx/o chronic a-fib -HR around 155 on arrival to ED -EKG in ED shows narrow complex tachycardia without well-defined P waves. Possible sinus rhythm with a first-degree AV block versus accelerated junctional rhythm. Also possibility of atrial flutter\\atrial fib with a variable block. Decreased voltages in limb leads. ST depression in V5 and V6. -Given 10 mg IVP diltiazem in ED followed by initiation of Diltiazem drip. -Rhythm converted in ED prior to arrival on floor. -Continuous resident care associate -PO home dose diltiazem in AM pending no changes overnight -Repeat 12-lead shows sinus rhythm with first degree HB. -Continue to monitor -06/14 will increase cardizem CD to 240 mg -06/15 Will increase his BB to 100 BID Question of possible lung nodule in right upper lung overlying clavicle -Noncontrast chest CT scan recommended by Dr. Nowak --> no lung nodule on CT Chronic: Anxiety - stable, home meds as ordered CAD with Hx/o stent placement - stable, home meds as ordered chronic Heart failure - Echo ordered, continue home meds HLD HTN - stable - meds as ordered Mild COPD - PRN meds as ordered Mild peripheral neupropathy - stable, meds as ordered Arthritis - pain meds as ordered osteoarthrits - pain meds as ordered Type II DM - Continue home insulin regimen; Discussed this with pts. PCP as he has had some skin reactions in past. Family brought these in. hx/o prostate cancer - urology following, last PSA was good Peripheral edema - home lasix Code Status: Full code. His PCP is ERIN Dejesus here at [facility]. hospital stay more than 96h 2/2 sepsis DC expected 06/18/17 on Levaquin for cellulitis to [facility]AD[facility]. - Patient Instructions Diet: Heart Healthy Diet, Low Sodium, Drink 8-10+ Glasses/Day, Diabetic Diet Activity: As Tolerated Showering/Bathing: May Shower Notify Provider of: Fever, Increased Pain, Swelling and Redness, Nausea and/or Vomiting - Discharge Plan Prescriptions/Med Rec: Cholecalciferol (Vitamin D3) [Vitamin D3] 1,000 units PO DAILY #30 tablet Famotidine [Pepcid] 20 mg PO DAILY #30 tablet Levofloxacin [Levaquin] 500 mg PO Q24H #7 tablet Home Medications: Home Meds Enalapril [Vasotec] 2.5 mg PO DAILY 11/04/14 [History] Insulin Glulisine [Apidra Solostar] 5 units INJECT TID PRN 11/04/14 [History] LORazepam [Ativan] 1 mg PO TID PRN 11/04/14 [History] Simvastatin [Zocor] 10 mg PO DAILY 11/04/14 [History] traMADol [Ultram] 50 - 100 mg PO QID PRN 11/04/14 [History] Diltiazem [Cardizem CD] 180 mg PO ACBRK 14 Days cap.cd 12/07/14 [Rx] Rivaroxaban [Xarelto] 20 mg PO BEDTIME 14 Days tablet 12/07/14 [Rx] Bacitracin 3.5 gm OP BID 06/12/17 [History] Clopidogrel [Plavix] 75 mg PO DAILY 06/12/17 [History] Furosemide [Lasix] 20 mg PO DAILY 06/12/17 [History] Gabapentin [Neurontin] 100 mg PO BID 06/12/17 [History] Insulin Glargine,Hum.Rec.Anlog [Toujeo Solostar] 44 unit SQ BEDTIME 06/12/17 [ History] Hydrocortisone/Aloe Vera [Cortizone-10 1% Creme] 1 applic TOP TID PRN 06/15/17 [ History] Acetaminophen [Tylenol] 650 mg PO Q4H PRN tablet 06/18/17 [Rx] Bisacodyl [Dulcolax] 5 mg PO DAILY PRN tablet 06/18/17 [Rx] Cholecalciferol (Vitamin D3) [Vitamin D3] 1,000 units PO DAILY #30 tablet [Rx] Famotidine [Pepcid] 20 mg PO DAILY #30 tablet 06/18/17 [Rx] Ibuprofen [IJD: Ibuprofen] 600 mg PO Q6H PRN tablet 06/18/17 [Rx] Levofloxacin [Levaquin] 500 mg PO Q24H #7 tablet 06/18/17 [Rx] Metoprolol Succinate 100 mg PO DAILY 14 Days tab.er.24h 06/18/17 [Rx] Patient Handouts: Diabetes and Foot Care, Cellulitis, Adult, Chronic Obstructive Pulmonary Disease, [id number], Hypertension, [id number], Heart Failure, Aoox-if-Beyi, Type 2 Diabetes Mellitus, Adult, [id number], Blood Glucose Monitoring, Adult, Atrial Fibrillation, [id number] Referrals: Eugenie Sen [employer]ENDENT [Primary Care Provider] - 06/25/17 1:15 pm (Please attend the post-hospital follow up appointment with your primary health care provider as scheduled.) - Discharge Summary/Plan Comment DC Time >30 min.: Yes (40 min) - General Info Date of Service: 06/18/17 Admission Dx/Problem (Free Text: Admission Diagnosis/Problem Admission Diagnosis/Problem Fever with chills Cellulitis to lower extremity. Functional Status: Reports: Pain Controlled, Tolerating Diet, Ambulating, Urinating. Denies: New Symptoms - Review of Systems General: Reports: No Symptoms HEENT: Reports: No Symptoms Pulmonary: Reports: No Symptoms. Denies: Shortness of Breath Cardiovascular: Reports: No Symptoms. Denies: Chest Pain Gastrointestinal: Reports: No Symptoms. Denies: Abdominal Pain, Nausea, Vomiting Genitourinary: Reports: No Symptoms Musculoskeletal: Reports: Leg Pain (minimal) Neurological: Reports: No Symptoms Psychiatric: Reports: No Symptoms - Patient Data Vitals - Most Recent: Last Vital Signs Temp 97.9 F 06/18/17 03:41 Pulse 89 06/18/17 08:37 Resp 19 06/18/17 03:41 BP 114/68 06/18/17 08:40 Pulse Ox 95 06/18/17 03:41 Weight - Most Recent: 249 lb 8 oz I&O - Last 24 hours: Intake & Output 06/17/17 06/18/17 06/18/17 22:59 06:59 14:59 Intake Total 1600 350 Output Total 1200 Balance 400 350 Lab Results - Last 24 hrs: Laboratory Results - last 24 hr 06/17/17 06/17/17 06/17/17 Range/Units 10:58 17:18 20:51 POC Glucose 180 H 186 H 194 H (83-110) mg/dL Random Vancomycin ug/mL 06/18/17 06/18/17 Range/Units 05:54 08:40 POC Glucose 117 H (83-110) mg/dL Random Vancomycin 13.1 ug/mL ALVARO Results - Last 24 hrs: Microbiology 06/14/17 20:38 Wound Culture - Preliminary Leg, Right Med Orders - Current: Current Medications Acetaminophen (Tylenol) 650 mg PO Q4H PRN PRN Reason: Pain (Mild 1-3)/fever Last Admin: 06/14/17 20:20 Dose: 650 mg Albuterol/Ipratropium (Duoneb 3.0-0.5 Mg/3 Ml) 3 ml NEB Q4H PRN PRN Reason: Shortness Of Breath/wheezing Bisacodyl (Dulcolax) 5 mg PO DAILY PRN PRN Reason: Constipation Last Admin: 06/15/17 08:45 Dose: 5 mg Cholecalciferol (Vitamin D3) 1,000 units PO DAILY [facility] Last Admin: 06/18/17 08:39 Dose: 1,000 units Clopidogrel Bisulfate (Plavix) 75 mg PO DAILY [facility] Last Admin: 06/18/17 08:39 Dose: 75 mg Dextrose/Water (Dextrose 50% In Water) 50 ml IVPUSH ASDIRECTED PRN PRN Reason: Hypoglycemia Diltiazem HCl (Dilacor Xr) 240 mg PO ACBRK [facility] Last Admin: 06/18/17 06:42 Dose: 240 mg Docusate Sodium (Colace) 100 mg PO BID PRN PRN Reason: Constipation Enalapril Maleate (Vasotec) 2.5 mg PO DAILY [facility] Last Admin: 06/18/17 08:40 Dose: 2.5 mg Famotidine (Pepcid) 20 mg PO DAILY [facility] Last Admin: 06/18/17 08:38 Dose: 20 mg Furosemide (Lasix) 20 mg PO DAILY [facility] Last Admin: 06/18/17 08:39 Dose: 20 mg Gabapentin (Neurontin) 100 mg PO BID [facility] Last Admin: 06/18/17 08:37 Dose: 100 mg Hydrocortisone (Hydrocortisone 1% Crm) 0 gm TOP TID PRN PRN Reason: Itching Last Admin: 06/16/17 08:41 Dose: 1 applic Levofloxacin/Dextrose 750 mg/ (Premix) 150 mls @ 100 mls/hr IV Q24H [facility] Last Admin: 06/17/17 13:07 Dose: 100 mls/hr Metronidazole 500 mg/ Premix 100 mls @ 100 mls/hr IV Q8H [facility] Last Admin: 06/18/17 08:43 Dose: 100 mls/hr Vancomycin HCl 1 gm/ Sodium (Chloride) 250 mls @ 250 mls/hr IV Q12H [facility] Last Admin: 06/17/17 20:30 Dose: 250 mls/hr Ibuprofen (Motrin) 600 mg PO Q6H PRN PRN Reason: Pain/Fever Last Admin: 06/13/17 21:42 Dose: 600 mg Lorazepam (Ativan) 1 mg PO TID PRN PRN Reason: Other Last Admin: 06/18/17 04:06 Dose: 1 mg Metoprolol Succinate (Toprol Xl) 100 mg PO DAILY [facility] Last Admin: 06/18/17 08:37 Dose: 100 mg Metoprolol Tartrate (Lopressor) 5 mg IVPUSH Q4H PRN PRN Reason: Tachycardia Ondansetron HCl (Zofran Odt) 4 mg PO Q6H PRN PRN Reason: nausea, able to take PO Ondansetron HCl (Zofran) 4 mg IV Q6H PRN PRN Reason: Nausea/Vomiting Insulin Glargine ( Tuojeo) 300 Unit/Ml Solostar Own Med 0 each SUBCUT BEDTIME [facility] Last Admin: 06/17/17 20:53 Dose: 44 each Insulin Glulisin ( Apidra) 100 Unit/Ml Solostar Own Med* * 0 each SUBCUT TIDMEALS PRN PRN Reason: BLOOD GLUCOSE Last Admin: 06/17/17 18:21 Dose: 7 each Polyethylene Glycol (Miralax) 17 gm PO DAILY PRN PRN Reason: Constipation Rivaroxaban (Xarelto) 20 mg PO BEDTIME [facility] Last Admin: 06/17/17 20:36 Dose: 20 mg Senna/Docusate Sodium (Senna Plus) 1 tab PO BID PRN PRN Reason: Constipation Simvastatin (Zocor) 10 mg PO DAILY [facility] Last Admin: 06/18/17 08:38 Dose: 10 mg Tramadol HCl (Ultram) 50 mg PO QID PRN PRN Reason: Pain Last Admin: 06/18/17 08:39 Dose: 50 mg Vancomycin HCl (Pharmacy To Dose - Vancomycin) [facility] Medications Acetaminophen (Tylenol) 975 mg PO NOW ONE Stop: 06/12/17 13:36 Last Admin: 06/12/17 13:48 Dose: 975 mg Hydrocodone Bitart/Acetaminophen (Portia 325-5 Mg) 2 tab PO Q4H PRN PRN Reason: Pain (moderate 4-6) Diltiazem HCl (Diltiazem) 10 mg IVPUSH ONETIME ONE Stop: 06/12/17 13:34 Last Admin: 06/12/17 13:51 Dose: 10 mg Diltiazem HCl (Cardizem Cd) 180 mg PO ACBRK [facility] Last Admin: 06/14/17 06:06 Dose: 180 mg Diltiazem HCl (Cardizem) 30 mg PO Q8H [facility] Stop: 06/14/17 20:01 Last Admin: 06/14/17 20:24 Dose: 30 mg Diphtheria/Tetanus/Acell Pertussis (Adacel) 0.5 ml IM .ONCE ONE Stop: 06/13/17 08:19 Famotidine (Pepcid) 20 mg PO BID [facility] Last Admin: 06/12/17 21:13 Dose: Not Given Hydromorphone HCl (Dilaudid) 0.5 mg IVPUSH Q2H PRN PRN Reason: Pain (severe 7-10) Diltiazem HCl 125 mg/ Sodium (Chloride) 125 mls @ 10 mls/hr IV [facility] PRN Reason: 10 MG/HR Last Admin: 06/12/17 14:04 Dose: 10 mg/hr, 10 mls/hr Sodium Chloride (Normal Saline) 1,000 mls @ 100 mls/hr IV [facility] Last Admin: 06/14/17 05:37 Dose: 100 mls/hr Vancomycin HCl 1 gm/ Sodium (Chloride) 250 mls @ 250 mls/hr IV ONETIME ONE Stop: 06/12/17 14:38 Last Admin: 06/12/17 14:06 Dose: 250 mls/hr Vancomycin HCl 1 gm/Vancomycin HCl 250 mg/ Sodium Chloride 250 mls @ 250 mls/ hr IV Q24H [facility] Last Admin: 06/13/17 06:49 Dose: Not Given Magnesium Sulfate 2 gm/ Premix 50 mls @ 25 mls/hr IV ONETIME ONE Stop: 06/12/17 20:26 Last Admin: 06/12/17 18:57 Dose: 25 mls/hr Vancomycin HCl 1 gm/ Sodium (Chloride) 250 mls @ 250 mls/hr IV Q12H [facility] Stop: 06/14/17 23:00 Last Admin: 06/14/17 20:28 Dose: 250 mls/hr Vancomycin HCl 750 mg/ Sodium (Chloride) 250 mls @ 166.667 mls/hr IV Q12H [facility] Influenza Virus Vaccine (Fluzone High-Dose 2016-) 180 mcg IM .ONCE ONE Stop: 06/12/17 17:01 Insulin Aspart (Novolog) 5 unit SUBCUT TID PRN PRN Reason: Blood Glucose Metoprolol Succinate (Toprol Xl) 50 mg PO DAILY [facility] Last Admin: 06/15/17 08:43 Dose: 50 mg Metoprolol Succinate (Toprol Xl) 50 mg PO ONETIME ONE Stop: 06/15/17 09:31 Last Admin: 06/15/17 09:47 Dose: 50 mg - Exam Quality Assessment: Reports: DVT Prophylaxis General: Reports: Alert, Oriented, Cooperative, No Acute Distress HEENT: Reports: Pupils Equal, EOMI, Mucous Membr. Moist/[place] Neck: Reports: Supple Lungs: Reports: Clear to Auscultation, Normal Respiratory Effort, Decreased Breath Sounds (bases) Cardiovascular: Reports: Irregular Rhythm GI/Abdominal Exam: Normal Bowel Sounds, Soft, Non-Tender (Male) Exam: Deferred Rectal (Males) Exam: Deferred Neurological: Reports: No New Focal Deficit, Cranial Nerves Intact Psy/Mental Status: Reports: Alert, Normal Affect, Normal Mood *Q Meaningful Use (DIS) - VTE *Q VTE Criteria *Q: - Stroke *Q Stroke Criteria *Q: - AMI *Q AMI Criteria *Q:
[2017-06-18] MEDS: INSULIN GLULISINE 100 UNIT/ML SUBCUT PRN (11:47)
[2017-06-18] MEDS: Levofloxacin/Dextrose 5%-Water 750 MG in Premix Bag 1 BAG IV SCH (12:29)
[2017-06-18] MEDS ORDERED: Pneumococcal Polyvalent-23 Vaccine 0.5 ML SDV IM ONE (13:00)
[2017-06-18 16:44] VITALS: BP 112/72
== END 2017-06-18 15:35 | disposition home or self-care (01) | DRG 603 ==
LOC: JD.ED 13:07 → JD.ICU 15:13 → UNDOADMIN 15:19 → JD.ICU 15:19 → JD.MS 06-15 18:30
PROVIDERS: ADMIT Internal Medicine; ATTEND Internal Medicine
DX: L03.115 Cellulitis of right lower limb (principal); E11.622 Type 2 diabetes mellitus with other skin ulcer; I48.2 Chronic atrial fibrillation; Z79.01 Long term (current) use of anticoagulants; R50.9 Fever, unspecified; I11.0 Hypertensive heart disease with heart failure; I50.9 Heart failure, unspecified; J44.9 Chronic obstructive pulmonary disease, unspecified; M19.90 Unspecified osteoarthritis, unspecified site; E78.5 Hyperlipidemia, unspecified; C61 Malignant neoplasm of prostate; R60.0 Localized edema; Z88.0 Allergy status to penicillin; Z88.1 Allergy status to other antibiotic agents; Z79.899 Other long term (current) drug therapy; I25.10 Atherosclerotic heart disease of native coronary artery without angina pectoris; Z95.5 Presence of coronary angioplasty implant and graft; E11.42 Type 2 diabetes mellitus with diabetic polyneuropathy; Z79.4 Long term (current) use of insulin; Z85.46 Personal history of malignant neoplasm of prostate; R91.1 Solitary pulmonary nodule; F41.9 Anxiety disorder, unspecified; G89.29 Other chronic pain; Z87.891 Personal history of nicotine dependence; Z23 Encounter for immunization
CPT/HCPCS: 36415; 71010; 80053; 81001; 82553; 82962; 83735; 83880; 84484; 84550; 85025; 85610; 85652; 86140; 87040 ×2; 93005; 96365; 96376; 99285; A9270; J3370; J3490; J7030; J7040; J7050; 71250; 71250-26; 80048; 80202; 83605; 87070; 90732; 93010; 93306; 97110-GO; 97110-GP; 97116-GP; 97162-GP; 97166-GO; 97535-GO; G0009; J1956; J3475

== ENCOUNTER 2017-08-30 09:12 | Emergency (ER) | payer MEDICARE, BC ==
[2017-08-30 09:25] VITALS: BP 112/78
--- NOTE | 2017-08-30 11:58 | EDM.PDOC ---
ED HPI GENERAL MEDICAL PROBLEM - General Chief Complaint: Gastrointestinal Problem Stated Complaint: DIARRHEA X 2 WEEKS Time Seen by Provider: 08/30/17 09:35 Source of Information: Reports: Patient, Family (Son) History Limitations: Reports: No Limitations - History of Present Illness INITIAL COMMENTS - FREE TEXT/NARRATIVE: The patient states that he has been having non-bloody loose bowel movements for the past 2 weeks. He states that early on, he had upper abdominal pain and bloating, but it has improved, and he now has only slight upper abdominal pain. At no time has he had a fever, nausea, or vomiting. He states that he spoke to Eugenie Sen's nurse, and was told to eat a brat diet. He has not followed up with Ms. Sen. He has been taking [id number] Imodium, 2-3 tablets per day, which he states helps for about one day, only to have the symptoms return. He has also taken OTC Emetrol on 2 occasions, most recently last night, without relief. The patient states that he has been self-discontinuing several of his prescribed medications, including Lasix were due to recent rashes. The patient states that he was hospitalized in mid June 2017 for lower extremity cellulitis. He states that while in the hospital, he was treated with IV antibiotics, then, when discharged in late June, it appears that he was on a course of Levaquin, and possibly Bactrim. As far as the patient recalls, he has not been on any antibiotics since he finished the Levaquin in early July. The patient's Production Zone Leader is Dr. Carson. 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 (see below) Other Treatments BUNDLING MACHINE OPERATOR: immodium 0700 (one tablet) - Related Data Allergies Allergy/AdvReac Type Severity Reaction Status Date / Time Cephalosporins Allergy Rash Verified 08/30/17 09:58 furosemide [From Lasix] Allergy Hives Verified 08/30/17 09:58 insulin aspart Allergy Stomach Verified 08/30/17 09:58 [From Novolog U-100 Insulin Upset aspart] Penicillins Allergy Rash Verified 08/30/17 09:58 simvastatin Allergy Rash Verified 08/30/17 09:58 Home Meds: Home Meds Insulin Glulisine [Apidra Solostar] 5 units INJECT TID PRN 11/04/14 [History] LORazepam [Ativan] 1 mg PO TID PRN 11/04/14 [History] traMADol [Ultram] 50 - 100 mg PO QID PRN 11/04/14 [History] Diltiazem [Cardizem CD] 180 mg PO ACBRK 14 Days cap.cd 12/07/14 [Rx] Rivaroxaban [Xarelto] 20 mg PO BEDTIME 14 Days tablet 12/07/14 [Rx] Clopidogrel [Plavix] 75 mg PO DAILY 06/12/17 [History] Gabapentin [Neurontin] 100 mg PO BID 06/12/17 [History] Insulin Glargine,Hum.Rec.Anlog [[place] Solostar] 44 unit SQ BEDTIME 06/12/17 [ History] Acetaminophen [Tylenol] 650 mg PO Q4H PRN tablet 06/18/17 [Rx] Ibuprofen [IJD: Ibuprofen] 600 mg PO Q6H PRN tablet 06/18/17 [Rx] Bacitracin 1 applic TOP ASDIRECTED 08/30/17 [History] Ethacrynic Acid 50 mg PO BID 08/30/17 [History] Metoprolol Succinate 50 mg PO DAILY 08/30/17 [History] Metoprolol Succinate 100 mg PO DAILY 08/30/17 [History] Rosuvastatin [Crestor] 20 mg PO DAILY 08/30/17 [History] Triamcinolone Acetonide [Triamcinolone Acetonide 0.1% Crm] 1 applic TOP TID [History] aMILoride [Midamor] 5 mg PO DAILY 08/30/17 [History] Past Medical History HEENT History: Reports: Hard of Hearing Cardiovascular History: Reports: Afib (chronic), Heart Failure, High Cholesterol , Hypertension Respiratory History: Reports: COPD Musculoskeletal History: Reports: Osteoarthritis Neurological History: Reports: Neuropathy, Diabetic Endocrine/Metabolic History: Reports: Diabetes, Type II Oncologic (Cancer) History: Reports: Prostate Dermatologic History: Reports: Psoriasis - Infectious Disease History Infectious Disease History: Reports: Rheumatic Fever - Past Surgical History HEENT Surgical History: Reports: Cataract Surgery Social & Family History - Family History Family Medical History: Noncontributory - Tobacco Use Smoking Status *Q: Never Smoker Years of Tobacco use: 2 Used Tobacco, but Quit: Yes Month Tobacco Last Used: 12/1956 Second Hand Smoke Exposure: No - Caffeine Use Caffeine Use: Reports: Coffee Other Caffeine Use: 1 cup in the morning - Alcohol Use Days Per Week of Alcohol Use: 0 - Recreational Drug Use Recreational Drug Use: No - Living Situation & Occupation Living situation: Reports: 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 ED EXAM, GI/ABD - Physical Exam Exam: See Below Exam Limited By: No Limitations General Appearance: Alert, WD/WN, No Apparent Distress Eyes: Bilateral: Normal Appearance, EOMI Ears: Normal External Exam, Hearing Grossly Normal Nose: Normal Inspection, No Blood Throat/Mouth: Normal Inspection, Normal Lips, Normal Voice, No Airway Compromise Head: Atraumatic, Normocephalic Neck: Normal Inspection, Full Range of Motion Respiratory/Chest: No Respiratory Distress, Lungs Clear, Normal Breath Sounds, No Accessory Muscle Use Cardiovascular: Normal Peripheral Pulses, No Edema, No Gallop, No JVD, No Murmur , No Rub, Irregularly Irregular (regular rate) GI/Abdominal Exam: Normal Bowel Sounds, Soft, Non-Tender, No Organomegaly, No Distention, No Abnormal Bruit, No Mass, Other (Umbilical hernia noted) (Male) Exam: Deferred Rectal (Males) Exam: Deferred Back Exam: Normal Inspection, Full Range of Motion, NT Extremities: Normal Inspection, Normal Range of Motion, No Pedal Edema, Normal Capillary Refill, Other (Bilateral leg chronic venous stasis changes noted, including hyperpigmentation, although currently minimal edema) Neurological: Alert, Oriented, Normal Cognition, No Motor/Sensory Deficits Psychiatric: Normal Affect Skin Exam: Warm, Dry, Intact, Normal Color, No Rash Course - Vital Signs Last Recorded V/S: Last Vital Signs Temp 36.6 C 08/30/17 09:15 Pulse 118 H 08/30/17 09:15 Resp 20 08/30/17 09:15 BP 112/78 08/30/17 09:15 Pulse Ox 99 08/30/17 09:15 - Orders/Labs/Meds Orders: Active Orders 24 hr Category Date Time Status C DIFFICILE BY PCR W/NAP1 [MOLEC] Routine Lab 08/30/17 15:15 Received CULTURE STOOL + SHIGATOX [RM] Routine Lab 08/30/17 15:15 Received CULTURE STOOL + SHIGATOX [RM] Stat Lab 08/30/17 10:07 Ordered NOROVIRUS GROUP 1 & 2 RT-PCR Routine Lab 08/30/17 15:15 Received NOROVIRUS GROUP 1 & 2 RT-PCR Stat Lab 08/30/17 10:09 Ordered ROTAVIRUS DIRECT ANTIGEN STOOL [OP] Routine Lab 08/30/17 15:15 Received WBC, STOOL [OP] Routine Lab 08/30/17 15:15 Received Labs: Laboratory Tests 08/30/17 08/30/17 08/30/17 Range/Units 10:25 10:25 15:15 WBC 6.58 (4.23-9.07) K/mm3 RBC 4.01 L (4.63-6.08) M/mm3 Hgb 12.9 L (13.7-17.5) gm/L Hct 38.9 L (40.1-51.0) % MCV 97.0 H (79.0-92.2) fl MCH 32.2 (25.7-32.2) pg MCHC 33.2 (32.2-35.5) g/dl RDW Std Deviation 45.2 H (35.1-43.9) fL Plt Count 217 (163-337) K/mm3 MPV 9.6 (9.4-12.3) fl Neutrophils % (Manual) 63 H (40-60) % Band Neutrophils % 1 (0-10) % Lymphocytes % (Manual) 29 (20-40) % Atypical Lymphs % 0 % Monocytes % (Manual) 5 (2-10) % Eosinophils % (Manual) 2 (0.8-7.0) % Basophils % (Manual) 0 L (0.2-1.2) Platelet Estimate Adequate RBC Morph Comment Normal Sodium 138 (136-145) mEq/L Potassium 3.8 (3.5-5.1) mEq/L Chloride 101 (98-107) mEq/L Carbon Dioxide 26 (21-32) mEq/L Anion Gap 14.8 (5-15) BUN 8 (7-18) mg/dL Creatinine 1.0 (0.7-1.3) mg/dL Est Cr Clr Drug Dosing 58.90 mL/min Estimated GFR (MDRD) > 60 (>60) mL/min BUN/Creatinine Ratio 8.0 L (14-18) Glucose 150 H (83-115) mg/dL Calcium 8.6 (8.5-10.1) mg/dL Total Bilirubin 0.8 (0.2-1.0) mg/dL AST 26 (15-37) U/L ALT 23 (16-63) U/L Alkaline Phosphatase 88 (46-116) U/L Total Protein 7.3 (6.4-8.2) g/dl Albumin 2.9 L (3.4-5.0) g/dl Globulin 4.4 gm/dL Albumin/Globulin Ratio 0.7 L (1-2) C.difficile 027-NAP1-B1 Presumptive negative C. difficile Tox (PCR) Negative - Re-Assessments/Exams Free Text/Narrative Re-Assessment/Exam: 08/30/17 11:47 Test results discussed with the patient and his son. The patient's blood work looks okay, however, he has not been able to provide a stool sample thus far. The plan is to discharge him home with a hat and a stool container, and I will submit outpatient orders for the lab. He can then follow-up with his PCP, Eugenie Sen either tomorrow or 09/03/2017. Departure - Departure Time of Disposition: 11:48 Disposition: Home, Self-Care 01 Condition: Good Clinical Impression: Loose bowel movements - Discharge Information Instructions: Diarrhea, Adult, Girard Diet Referrals: Eugenie Sen, PULP TESTER [Primary Care Provider] - Forms: ED Department Discharge Additional Instructions: You were seen in the emergency room for 2 weeks of loose bowel movements. Workup in the ER included blood work and numerous stool studies, however, you were not able to provide a stool sample. Your blood work revealed blood sugar elevated at 150. The remainder of your blood work was unremarkable. You are being sent home with a "half" and stool sample container. If you aren't able to provide a stool sample, take it to the lab for analysis. If you are able to drop off a stool sample today, follow-up with your PCP, Eugenie Sen, either today or 09/03/2017. In the meantime, continue to eat a bland diet. Chicken soup is good. If any other problems, please do not hesitate to return to the ER. - My Orders Last 24 Hours: My Active Orders 08/30/17 10:07 CULTURE STOOL + SHIGATOX [RM] Stat 08/30/17 10:09 NOROVIRUS GROUP 1 & 2 RT-PCR Stat 08/30/17 15:15 C DIFFICILE BY PCR W/NAP1 [MOLEC] Routine CULTURE STOOL + SHIGATOX [RM] Routine NOROVIRUS GROUP 1 & 2 RT-PCR Routine ROTAVIRUS DIRECT ANTIGEN STOOL [OP] Routine WBC, STOOL [OP] Routine - Assessment/Plan Last 24 Hours: My Active Orders 08/30/17 10:07 CULTURE STOOL + SHIGATOX [RM] Stat 08/30/17 10:09 NOROVIRUS GROUP 1 & 2 RT-PCR Stat 08/30/17 15:15 C DIFFICILE BY PCR W/NAP1 [MOLEC] Routine CULTURE STOOL + SHIGATOX [RM] Routine NOROVIRUS GROUP 1 & 2 RT-PCR Routine ROTAVIRUS DIRECT ANTIGEN STOOL [OP] Routine WBC, STOOL [OP] Routine
== END 2017-08-30 12:16 | disposition home or self-care (01) ==
LOC: JD.ED 09:12
DX: R19.7 Diarrhea, unspecified (principal); I11.0 Hypertensive heart disease with heart failure; I50.9 Heart failure, unspecified; E11.40 Type 2 diabetes mellitus with diabetic neuropathy, unspecified; J44.9 Chronic obstructive pulmonary disease, unspecified; Z79.899 Other long term (current) drug therapy; Z88.0 Allergy status to penicillin; Z88.8 Allergy status to other drugs, medicaments and biological substances; Z88.1 Allergy status to other antibiotic agents
CPT/HCPCS: 36415; 80053; 85025; 87046; 87425; 87427; 87493; 87798; 89055; 99284

== ENCOUNTER 2017-09-02 20:46 | Emergency (ER) | payer MEDICARE, BC ==
--- NOTE | 2017-09-02 21:17 | EDM.PDOC ---
ED HPI GENERAL MEDICAL PROBLEM - General Chief Complaint: Abdominal Pain Stated Complaint: dehydration Time Seen by Provider: 09/02/17 21:07 Source of Information: Reports: Patient History Limitations: Reports: No Limitations - History of Present Illness INITIAL COMMENTS - FREE TEXT/NARRATIVE: 77-year-old male presents to the ED feeling weak and dehydrated. 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 He stopped Lasix lisinopril and simvastatin and his rash cleared up. Early he required further diuretic treatment and ethacrynic acid an old loop diuretic was obtained from [facility]. However since he started this medication around the very end of June 27 he has developed nausea vomiting and intermittent abdominal cramping pain and diarrhea. It stopped the medication due to side effects as was making him feel so ill 3 days ago. He decided today that he better take one because he was worried that he is going to swell again. Within an hour he started to develop nausea and then had profuse vomiting of bilious material in his breakfast. He vomited 4 times and then he developed diffuse abdominal cramping pain and diarrhea. Since 11:30 he believes he went about 12 times large-volume water loss. He is therefore therefore presents feeling lightheaded and weak. He states he took an over-the- counter medication to relieve diarrhea I believe Pepto-Bismol about 1530 hrs. and has had very little diarrhea since that time. He has not taken his metoprolol or his Plavix yet today. Heart rate initially was in the 120s to 140s. It appeared to be atrial fibrillation but ECG now shows sinus rhythm at 90 /m. He essentially has had nothing to eat or drink other than coffee early this morning. Of note he has a type II diabetic using insulin for control. Onset: Today Onset Date: 09/02/17 Onset Time: 10:20 Duration: Hour(s): Location: Reports: Abdomen (Cramps and diarrhea starting at 10:30 this morning) Quality: Reports: Other Severity: Moderate (Abdominal cramping pain to severe) Improves with: Reports: Other (Improved after taking [id number] medication for diarrhea) Worsens with: Reports: None ( at about 1530 hrs.) Context: Reports: Other. Denies: Activity, Exercise, Lifting, Sick Contact, Trauma Associated Symptoms: Reports: Loss of Appetite, Malaise, Nausea/Vomiting, Other. Denies: Confusion, Chest Pain, Cough (Adverse effect to medication.), cough w sputum, Diaphoresis, Fever/Chills, Headaches Treatments CASTING ASSISTANT: Reports: Other (see below) (at about 1530 hrs. that helped ease his abdominal cramps and diarrhea.) - Related Data Allergies Allergy/AdvReac Type Severity Reaction Status Date / Time Cephalosporins Allergy Rash Verified 08/30/17 09:58 furosemide [From Lasix] Allergy Hives Verified 08/30/17 09:58 insulin aspart Allergy Stomach Verified 08/30/17 09:58 [From Novolog U-100 Insulin Upset aspart] Penicillins Allergy Rash Verified 08/30/17 09:58 simvastatin Allergy Rash Verified 08/30/17 09:58 Home Meds: Home Meds Insulin Glulisine [Apidra Solostar] 5 units INJECT TID PRN 11/04/14 [History] LORazepam [Ativan] 1 mg PO TID PRN 11/04/14 [History] traMADol [Ultram] 50 - 100 mg PO QID PRN 11/04/14 [History] Diltiazem [Cardizem CD] 180 mg PO ACBRK 14 Days cap.cd 12/07/14 [Rx] Rivaroxaban [Xarelto] 20 mg PO BEDTIME 14 Days tablet 12/07/14 [Rx] Clopidogrel [Plavix] 75 mg PO DAILY 06/12/17 [History] Gabapentin [Neurontin] 100 mg PO BID 06/12/17 [History] Insulin Glargine,Hum.Rec.Anlog [Toujeo Solostar] 44 unit SQ BEDTIME 06/12/17 [ History] Acetaminophen [Tylenol] 650 mg PO Q4H PRN tablet 06/18/17 [Rx] Ibuprofen [IJD: Ibuprofen] 600 mg PO Q6H PRN tablet 06/18/17 [Rx] Bacitracin 1 applic TOP ASDIRECTED 08/30/17 [History] Ethacrynic Acid 50 mg PO BID 08/30/17 [History] Metoprolol Succinate 50 mg PO DAILY 08/30/17 [History] Metoprolol Succinate 100 mg PO DAILY 08/30/17 [History] Rosuvastatin [Crestor] 20 mg PO DAILY 08/30/17 [History] Triamcinolone Acetonide [Triamcinolone Acetonide 0.1% Crm] 1 applic TOP TID [History] aMILoride [Midamor] 5 mg PO DAILY 08/30/17 [History] Past Medical History HEENT History: Reports: Hard of Hearing Other HEENT History: vertigo Cardiovascular History: Reports: Afib, Heart Failure, High Cholesterol, Hypertension Other Cardiovascular History: Stent x 1 Respiratory History: Reports: COPD Other Respiratory History: cough for past week Gastrointestinal History: Reports: Other (See Below) Other Gastrointestinal History: Lg umbilical hernia Other Genitourinary History: pt states dribbles urine alot Musculoskeletal History: Reports: Osteoarthritis Neurological History: Reports: Neuropathy, Diabetic Other Neuro History: states memory loss Endocrine/Metabolic History: Reports: Diabetes, Type II Oncologic (Cancer) History: Reports: Prostate Other Oncologic History: prostate cancer Dermatologic History: Reports: Psoriasis - Infectious Disease History Infectious Disease History: Reports: Rheumatic Fever - Past Surgical History HEENT Surgical History: Reports: Cataract Surgery Social & Family History - Family History Family Medical History: Noncontributory - Tobacco Use Smoking Status *Q: Never Smoker Years of Tobacco use: 2 Used Tobacco, but Quit: Yes Month Tobacco Last Used: 12/1956 Second Hand Smoke Exposure: No - Caffeine Use Caffeine Use: Reports: Coffee Other Caffeine Use: 1 cup in the morning - Alcohol Use Days Per Week of Alcohol Use: 0 - Recreational Drug Use Recreational Drug Use: No - Living Situation & Occupation Living situation: Reports: 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 Denies: Fever, Chills HEENT: Reports: Glasses (Her reading), Hearing Loss Respiratory: Reports: Shortness of Breath, Cough. Denies: Wheezing, Pleuritic Chest Pain (On minimal exertion) Cardiovascular: Reports: Chest Pain (Occasional nonproductive cough currently having some right sided upper anterior chest pain which has a pleuritic component), Blood Pressure Problem, Dyspnea on Exertion (Chronic lower extremity edema.), Edema, Lightheadedness. Denies: Claudication, Orthopnea ( Usually runs a little bit low.) Endocrine: Reports: Fatigue GI/Abdominal: Reports: Abdominal Pain, Diarrhea (Cramping primarily), Nausea, Vomiting (First thing this morning after taking dose of ethacrynic acid.) : Reports: Frequency, Other (Has BPH. Nocturia usually 3) Musculoskeletal: Reports: Back Pain, Joint Pain (Knees and hips neck at times) Skin: Reports: Bruising (Bruises easily because of being on Plavix.) Neurological: Reports: No Symptoms Psychiatric: Reports: No Symptoms Hematologic/Lymphatic: Reports: No Symptoms Immunologic: Reports: No Symptoms ED EXAM, GI/ABD - Physical Exam Exam: See Below Exam Limited By: No Limitations General Appearance: Alert, WD/WN, Anxious, Mild Distress, Other (Mildly pallid. But alert and oriented.) Eyes: Bilateral: Normal Appearance Throat/Mouth: Normal Inspection, Normal Oropharynx, Other Head: Atraumatic, Normocephalic Neck: Normal Inspection, Supple, Non-Tender, Full Range of Motion. No: Carotid Bruit, Lymphadenopathy (L), Lymphadenopathy (R) Respiratory/Chest: Normal Breath Sounds, Decreased Breath Sounds (Mildly decreased breath sounds posterior lung cat.), Other (He has some pain right anterior chest over the fourth rib midclavicular line but I cannot make it worse by firm palpation.). No: Rhonchi, Wheezing Cardiovascular: Tachycardia (Heart rate was anywhere from 107-1 40/m initially.) , Irregularly Irregular (Pulse initially was irregular irregular suggesting intra-fibrillation on the monitor. However ECG shows a returned to sinus rhythm at this time) GI/Abdominal Exam: Abnormal Bowel Sounds, Other (Mildly hyperactive bowel sounds. Firm abdominal wall. Moderately obese. Tenderness along the distribution of his liver which is just palpable below the right costal margin) Back Exam: Normal Inspection, Full Range of Motion, Decreased Range of Motion. No: CVA Tenderness (L), CVA Tenderness (R) Extremities: Pedal Edema ( is 1+ pitting edema both lower extremities to just above his ankles. There is evidence of venous stasis dermatitis in both lower extremities. He has changes in his knees compatible with osteoarthritis.) , Other Neurological: Alert, Oriented, CN II-XII Intact, Normal Cognition Psychiatric: Normal Affect, Normal Mood EKG INTERPRETATION EKG Date: 09/02/17 Time: 21:30 Rhythm: NSR Rate (Beats/Min): 90 [place]: Normal P-Wave: Present (First-degree AV block.) QRS: Other (There is decreased voltage in both limb and precordial leads with late R wave transition. This is somewhat suggestive of septal hypertrophy.) ST-T: Other (No signs of ischemia.) QT: Normal Course - Vital Signs Last Recorded V/S: Last Vital Signs Temp 36.6 C 09/02/17 20:59 Pulse 97 09/02/17 21:48 Resp 24 H 09/02/17 20:59 BP 116/67 09/02/17 21:48 Pulse Ox 99 09/02/17 20:59 - Orders/Labs/Meds Orders: Active Orders 24 hr Category Date Time Status Blood Glucose Check, Bedside [RC] ONETIME Care 09/02/17 21:24 Active EKG Documentation Completion [RC] STAT Care 09/02/17 21:23 Active Orthostatic Vital Signs [RC] ASDIRECTED Care 09/02/17 21:29 Active Chest 1V Frontal [CR] Stat Exams 09/02/17 21:22 Taken Labs: Laboratory Tests 09/02/17 09/02/17 09/02/17 Range/Units 21:36 21:36 21:46 WBC 6.60 (4.23-9.07) K/mm3 RBC 3.92 L (4.63-6.08) M/mm3 Hgb 12.5 L (13.7-17.5) gm/L Hct 37.7 L (40.1-51.0) % MCV 96.2 H (79.0-92.2) fl MCH 31.9 (25.7-32.2) pg MCHC 33.2 (32.2-35.5) g/dl RDW Std Deviation 45.1 H (35.1-43.9) fL Plt Count 239 (163-337) K/mm3 MPV 9.6 (9.4-12.3) fl Neutrophils % (Manual) 67 H (40-60) % Band Neutrophils % 0 (0-10) % Lymphocytes % (Manual) 26 (20-40) % Atypical Lymphs % 0 % Monocytes % (Manual) 3 (2-10) % Eosinophils % (Manual) 4 (0.8-7.0) % Basophils % (Manual) 0 L (0.2-1.2) Platelet Estimate Adequate Plt Morphology Comment Normal RBC Morph Comment Normal Sodium 140 (136-145) mEq/L Potassium 3.3 L (3.5-5.1) mEq/L Chloride 103 (98-107) mEq/L Carbon Dioxide 24 (21-32) mEq/L Anion Gap 16.3 H (5-15) BUN 7 (7-18) mg/dL Creatinine 0.9 (0.7-1.3) mg/dL Est Cr Clr Drug Dosing 65.44 mL/min Estimated GFR (MDRD) > 60 (>60) mL/min BUN/Creatinine Ratio 7.8 L (14-18) Glucose 131 H (83-115) mg/dL Calcium 8.5 (8.5-10.1) mg/dL Total Bilirubin 0.5 (0.2-1.0) mg/dL AST 20 (15-37) U/L ALT 28 (16-63) U/L Alkaline Phosphatase 77 (46-116) U/L CK-MB (CK-2) 1.9 (0-3.6) ng/ml Troponin I < 0.017 (0.00-0.056) ng/mL C-Reactive Protein 4.8 H* (<1.0) mg/dL NT-Pro-B Natriuret Pep 283 (0-450) pg/mL Total Protein 7.0 (6.4-8.2) g/dl Albumin 2.8 L (3.4-5.0) g/dl Globulin 4.2 gm/dL Albumin/Globulin Ratio 0.7 L (1-2) Urine Color (Yellow) Urine Appearance (Clear) Urine pH (5.0-8.0) Ur Specific [place] (1.005-1.030) Urine Protein (Negative) Urine Glucose (UA) (Negative) Urine Ketones (Negative) Urine Occult Blood (Negative) Urine Nitrite (Negative) Urine Bilirubin (Negative) Urine Urobilinogen (0.2-1.0) Ur Leukocyte Esterase (Negative) Urine RBC (0-5) /hpf Urine WBC (0-5) /hpf Ur Epithelial Cells (0-5) /hpf Urine Bacteria (FEW) /hpf Hyaline Casts (0-5) /lpf Urine Mucus (FEW) /hpf 09/02/17 Range/Units 23:28 WBC (4.23-9.07) K/mm3 RBC (4.63-6.08) M/mm3 Hgb (13.7-17.5) gm/L Hct (40.1-51.0) % MCV (79.0-92.2) fl MCH (25.7-32.2) pg MCHC (32.2-35.5) g/dl RDW Std Deviation (35.1-43.9) fL Plt Count (163-337) K/mm3 MPV (9.4-12.3) fl Neutrophils % (Manual) (40-60) % Band Neutrophils % (0-10) % Lymphocytes % (Manual) (20-40) % Atypical Lymphs % % Monocytes % (Manual) (2-10) % Eosinophils % (Manual) (0.8-7.0) % Basophils % (Manual) (0.2-1.2) Platelet Estimate Plt Morphology Comment RBC Morph Comment Sodium (136-145) mEq/L Potassium (3.5-5.1) mEq/L Chloride (98-107) mEq/L Carbon Dioxide (21-32) mEq/L Anion Gap (5-15) BUN (7-18) mg/dL Creatinine (0.7-1.3) mg/dL Est Cr Clr Drug Dosing mL/min Estimated GFR (MDRD) (>60) mL/min BUN/Creatinine Ratio (14-18) Glucose (83-115) mg/dL Calcium (8.5-10.1) mg/dL Total Bilirubin (0.2-1.0) mg/dL AST (15-37) U/L ALT (16-63) U/L Alkaline Phosphatase (46-116) U/L CK-MB (CK-2) (0-3.6) ng/ml Troponin I (0.00-0.056) ng/mL C-Reactive Protein (<1.0) mg/dL NT-Pro-B Natriuret Pep (0-450) pg/mL Total Protein (6.4-8.2) g/dl Albumin (3.4-5.0) g/dl Globulin gm/dL Albumin/Globulin Ratio (1-2) Urine Color Yellow (Yellow) Urine Appearance Clear (Clear) Urine pH 6.0 (5.0-8.0) Ur Specific [place] 1.020 (1.005-1.030) Urine Protein Negative (Negative) Urine Glucose (UA) Negative (Negative) Urine Ketones Trace H (Negative) Urine Occult Blood Negative (Negative) Urine Nitrite Negative (Negative) Urine Bilirubin Negative (Negative) Urine Urobilinogen 0.2 (0.2-1.0) Ur Leukocyte Esterase Negative (Negative) Urine RBC 0-5 (0-5) /hpf Urine WBC 0-5 (0-5) /hpf Ur Epithelial Cells 0-5 (0-5) /hpf Urine Bacteria Rare (FEW) /hpf Hyaline Casts 0-5 (0-5) /lpf Urine Mucus Moderate H (FEW) /hpf Meds: Medications Discontinued Medications Generic Name Dose Route Start Last Admin Trade Name Freq PRN Reason Stop Dose Admin Sodium Chloride 1,000 mls @ 500 mls/hr 09/02/17 21:30 09/02/17 21:47 Normal Saline IV 500 mls/hr ASDIRECTED [facility]ISON Administration Metoprolol Tartrate 5 mg 09/02/17 21:22 09/02/17 21:48 Lopressor IVPUSH 09/02/17 21:23 5 mg ONETIME ONE Administration - Radiology Interpretation Free Text/Narrative:: 69-year-old male presents to the ED feeling weak and dehydrated. Patient reports that he has been having problems with new medication called ethacrynic acid which is an old diuretic. 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 He's been on the ethacrynic acid for about 2 months. He is found the medication quite intolerable in terms of side effects. Within an hour of taking it he feels quite nauseated can hardly eat the rest of the day makes him have weakness intermittent cramps and diarrhea. He had stopped the medication completely after whittling down from 4 tablets a day to 1 tablet a day over the last several weeks. It started 3 days ago. Due to some increased swelling in his legs today he took it and within the hour became ill with acute onset of nausea vomiting of bilious material in his breakfast. This was followed an hour later by diffuse abdominal cramping pain and profuse watery diarrhea 12. No blood was noted. He didn't feel well he did not take his metoprolol or his Plavix dose yet today. On arrival he is in atrial fibrillation with heart rate 107-1 40 /m. However by the time ECG was done and is back to sinus rhythm at 90/m with first-degree AV block. Plan orthostatic BPs will be checked. I will give him fluids cautiously as he is prone to congestive failure. He will start with 500 mils normal saline over the next hour. He has some right anterior upper chest pain which is a pleuritic component and a chest x-ray will therefore be performed. Routine labs to be performed. - Re-Assessments/Exams Free Text/Narrative Re-Assessment/Exam: 09/02/17 23:15 Lab work reveals a white count of 6.60 with 67% neutrophils and no bands. Hemoglobin is 12.5 with a hematocrit of 37.7. MCV is mildly elevated at 96.2. Sodium was 140 with a potassium slightly low at 3.3. Chloride 103 bicarbonate is 24. And a gap is mildly elevated at 16.3. BUN was normal at 7 with a creatinine of 0.9. GFR remains greater than 60. Glucose is 131 at present. Calcium is 8.5 with a total bilirubin of 0.5. AST is 20 with a ALT of 28. Alk phosphatase is 77. CK-MB fraction is 1.9 troponin I is less than 0.017. C-reactive protein is elevated at 4.8. Reason for this is unclear. BNP is mildly elevated at 283. Albumin fraction slightly low at 2.8. Urinalysis is normal. 09/02/17 23:40 patient has received approximately 600 mils of normal saline. I will discharge him to home. It appears that he will not be able to take ethacrynic acid any further as it is certainly his medication that is creating his current illness. I see no reason why he cannot be on low-dose Aldactone 25 mg once or twice daily tacked as a diuretic as long as he does not not develop any hyperkalemia while on medication. I will give him a prescription for this medication but he is to discuss this with his vocational nurse before starting it. Departure - Departure Time of Disposition: 23:44 Disposition: Home, Self-Care 01 Condition: Fair Clinical Impression: Nausea and vomiting in adult patient Adverse effects of medication Qualifiers: Encounter type: initial encounter Qualified Code(s): T88.7XXA - Unspecified adverse effect of drug or medicament, initial encounter Diarrhea Qualifiers: Diarrhea type: functional diarrhea Qualified Code(s): K59.1 - Functional diarrhea - Discharge Information Referrals: Eugenie Sen, [employer] [Primary Care Provider] - Forms: ED Department Discharge Additional Instructions: Evaluation the emergency room tonight in regards to development of profuse nausea vomiting and then significant diarrhea this afternoon after taking ethacrynic acid tablet this morning. It appears you certainly are intolerant to this medication due to its adverse side effects. Therefore advise no further use of ethacrynic acid. You were rehydrated with normal saline intravenously over a period of 2 hours. Try and drink extra fluids tomorrow to prevent wide further rehydration such as Gatorade Powerade etc. Discuss with vocational nurse whether or not you could try Aldactone 25 mg once or twice daily as a diuretic agent to replace the ethacrynic acid. He would have to have your kidney function and potassium levels checked about a week after starting this medication to make sure that it is not causing any other adverse effects. - My Orders Last 24 Hours: My Active Orders 09/02/17 21:22 Chest 1V Frontal [CR] Stat 09/02/17 21:23 EKG Documentation Completion [RC] STAT 09/02/17 21:24 Blood Glucose Check, Bedside [RC] ONETIME 09/02/17 21:29 Orthostatic Vital Signs [RC] ASDIRECTED - Assessment/Plan Last 24 Hours: My Active Orders 09/02/17 21:22 Chest 1V Frontal [CR] Stat 09/02/17 21:23 EKG Documentation Completion [RC] STAT 09/02/17 21:24 Blood Glucose Check, Bedside [RC] ONETIME 09/02/17 21:29 Orthostatic Vital Signs [RC] ASDIRECTED
[2017-09-02] MEDS ORDERED: Metoprolol Tartrate 5 MG/5 ML SDV IVPUSH ONE (21:22)
[2017-09-02] MEDS ORDERED: Sodium Chloride 0.9% 1,000 ML IV SCH (21:30)
[2017-09-02 21:50] VITALS: BP 116/67
--- NOTE | 2017-09-03 09:38 | CR ---
Chest: Portable view of the chest was obtained. Comparison: Prior chest x-ray of 06/12/17. Heart size is accentuated from portable technique. Tortuous thoracic aorta is seen. Lobulated right hemidiaphragm is noted which is stable. Lungs show no acute parenchymal densities. Bony structures are grossly intact. Impression: 1. Nothing acute is seen on portable chest x-ray. Diagnostic code #2
== END 2017-09-03 00:30 | disposition home or self-care (01) ==
LOC: JD.ED 20:46
DX: R11.2 Nausea with vomiting, unspecified (principal); R19.7 Diarrhea, unspecified; T50.1X5A Adverse effect of loop [high-ceiling] diuretics, initial encounter; I11.0 Hypertensive heart disease with heart failure; I50.9 Heart failure, unspecified; I48.91 Unspecified atrial fibrillation; J44.9 Chronic obstructive pulmonary disease, unspecified; E11.40 Type 2 diabetes mellitus with diabetic neuropathy, unspecified; Z95.5 Presence of coronary angioplasty implant and graft; Z87.891 Personal history of nicotine dependence; Z79.4 Long term (current) use of insulin; Z79.02 Long term (current) use of antithrombotics/antiplatelets; Z79.899 Other long term (current) drug therapy; Z88.0 Allergy status to penicillin; Z88.1 Allergy status to other antibiotic agents; Z88.8 Allergy status to other drugs, medicaments and biological substances
CPT/HCPCS: 36415; 71045; 80053; 81001; 82553; 83880; 84484; 85025; 86140; 93005; 96361; 96374; 99284; J7040; J3490

== ENCOUNTER 2018-01-01 14:30 | Emergency (ER) | payer MEDICARE, BC ==
[2018-01-01 14:40] VITALS: BP 128/63
--- NOTE | 2018-01-01 15:19 | EDM.PDOC ---
<Radha Mckeon - Last Filed: 01/01/18 18:02> ED HPI GENERAL MEDICAL PROBLEM - General Chief Complaint: Gastrointestinal Problem Stated Complaint: BLOOD IN STOOL Time Seen by Provider: 01/01/18 14:40 Source of Information: Reports: Patient, Family () History Limitations: Reports: No Limitations - History of Present Illness INITIAL COMMENTS - FREE TEXT/NARRATIVE: 77 yo male came to the ED after a few episodes of bloody bowel movements throughout the day. He reports 2 episodes this morning with a few normal bowel movements after those. This afternoon he had another episode after lunch and became concerned. He describes it has bright red blood in the stool and in the water with visible clots. He is on Plavix and Xarelto and has never had anything like this in the past. He reports a mild "gut ache" that felt similar to gas but it has since resolved. He denies nausea or vomiting or diarrhea. He complains of generalized fatigue which has been progressing over the past year but he has attributed this to his age and a lot of medication changes recently. Onset: Today, Sudden Duration: Hour(s): (approx 7 hours ago), Waxing/Waning Location: Reports: Abdomen (mild abdominal cramping) Quality: Reports: Ache, Other (cramping) Severity: Mild Improves with: Reports: None Worsens with: Reports: None Associated Symptoms: Reports: Other (blood in stool on 3 different occasions today) - Related Data Allergies Allergy/AdvReac Type Severity Reaction Status Date / Time Cephalosporins Allergy Rash Verified 01/01/18 14:40 furosemide [From Lasix] Allergy Hives Verified 01/01/18 14:40 Penicillins Allergy Rash Verified 01/01/18 14:40 simvastatin Allergy Rash Verified 01/01/18 14:40 insulin aspart AdvReac Stomach Verified 01/01/18 14:40 [From Novolog U-100 Insulin Upset aspart] Home Meds: Home Meds Insulin Glulisine [Apidra Solostar] 4 units INJECT TID PRN 11/04/14 [History] LORazepam [Ativan] 1 mg PO TID PRN 11/04/14 [History] traMADol [Ultram] 50 - 100 mg PO QID PRN 11/04/14 [History] Diltiazem [Cardizem CD] 180 mg PO ACBRK 14 Days cap.cd 12/07/14 [Rx] Rivaroxaban [Xarelto] 20 mg PO BEDTIME 14 Days tablet 12/07/14 [Rx] Clopidogrel [Plavix] 75 mg PO DAILY 06/12/17 [History] Insulin Glargine,Hum.Rec.Anlog [Makenzie Michelle] 44 unit SQ BEDTIME 06/12/17 [ History] Metoprolol Succinate 50 mg PO DAILY 08/30/17 [History] Rosuvastatin [Crestor] 20 mg PO DAILY 08/30/17 [History] Spironolactone [Aldactone] 25 mg PO BID 01/01/18 [History] Past Medical History HEENT History: Reports: Hard of Hearing Other HEENT History: vertigo Cardiovascular History: Reports: Afib, Heart Failure, High Cholesterol, Hypertension Other Cardiovascular History: Stent x 1 Respiratory History: Reports: COPD Other Respiratory History: cough for past week Gastrointestinal History: Reports: Other (See Below) Other Gastrointestinal History: Lg umbilical hernia Other Genitourinary History: pt states dribbles urine alot Musculoskeletal History: Reports: Osteoarthritis Neurological History: Reports: Neuropathy, Diabetic Other Neuro History: states memory loss Endocrine/Metabolic History: Reports: Diabetes, Type II Oncologic (Cancer) History: Reports: Prostate Other Oncologic History: prostate cancer Dermatologic History: Reports: Psoriasis - Infectious Disease History Infectious Disease History: Reports: Rheumatic Fever - Past Surgical History HEENT Surgical History: Reports: Cataract Surgery Social & Family History - Family History Family Medical History: Noncontributory - Tobacco Use Smoking Status *Q: Never Smoker - Caffeine Use Caffeine Use: Reports: Coffee Other Caffeine Use: 1 cup in the morning - Recreational Drug Use Recreational Drug Use: No - Living Situation & Occupation Living situation: Reports: 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 Denies: Fever, Chills, Malaise HEENT: Reports: No Symptoms Respiratory: Reports: No Symptoms Cardiovascular: Reports: No Symptoms Endocrine: Reports: No Symptoms GI/Abdominal: Reports: Abdominal Pain (minimal, lower abdominal cramping), Bloody Stool (bright red blood in stool and in water), Constipation : Reports: No Symptoms. Denies: Dysuria, Frequency, Urgency Musculoskeletal: Reports: No Symptoms Skin: Reports: No Symptoms Neurological: Reports: No Symptoms. Denies: Confusion, Dizziness, Headache Psychiatric: Reports: No Symptoms Hematologic/Lymphatic: Reports: No Symptoms. Denies: Easy Bleeding, Easy Bruising Immunologic: Reports: No Symptoms ED EXAM, GI/ABD - Physical Exam Exam: See Below Exam Limited By: No Limitations General Appearance: Alert, WD/WN, No Apparent Distress Head: Atraumatic, Normocephalic Neck: Normal Inspection, Supple, Full Range of Motion Respiratory/Chest: No Respiratory Distress, Lungs Clear, Normal Breath Sounds Cardiovascular: Normal Peripheral Pulses, Regular Rate, Rhythm, No Edema GI/Abdominal Exam: Normal Bowel Sounds, Soft, Tender (minimal tenderness in the lower abdomen), Hernia (umbilical region, not tender to palpation) Course - Vital Signs Last Recorded V/S: Last Vital Signs Temp 98.7 F 01/01/18 14:37 Pulse 78 01/01/18 14:37 Resp 16 01/01/18 14:37 BP 128/63 01/01/18 14:37 Pulse Ox 95 01/01/18 14:37 - Orders/Labs/Meds Orders: Active Orders 24 hr Category Date Time Status Peripheral IV Care [RC] . DIRECTED Care 01/01/18 15:36 Active Sodium Chloride 0.9% [Normal Saline] 1,000 ml Med 01/01/18 15:45 Active IV ASDIRECTED Sodium Chloride 0.9% [Saline Flush] Med 01/01/18 15:34 Active 10 ml FLUSH ASDIRECTED PRN Sodium Chloride 0.9% [Saline Flush] Med 01/01/18 16:47 Active 10 ml FLUSH ONETIME PRN Peripheral IV Insertion Adult [OM.PC] Stat Oth 01/01/18 15:34 Ordered Medication Orders Sodium Chloride (Normal Saline) 1,000 mls @ 125 mls/hr IV ASDIRECTED HARRISON Last Admin: 01/01/18 15:49 Dose: 125 mls/hr Sodium Chloride (Saline Flush) 10 ml FLUSH ASDIRECTED PRN PRN Reason: Keep Vein Open Last Admin: 01/01/18 17:19 Dose: 10 ml Admin: 01/01/18 15:49 Dose: 10 ml Sodium Chloride (Saline Flush) 10 ml FLUSH ONETIME PRN PRN Reason: IV FLUSH Last Admin: 01/01/18 18:05 Dose: 10 ml Labs: Laboratory Tests 01/01/18 01/01/18 Range/Units 15:45 15:45 WBC 6.59 (4.23-9.07) K/mm3 RBC 4.52 L (4.63-6.08) M/mm3 Hgb 14.3 (13.7-17.5) gm/L Hct 43.7 (40.1-51.0) % MCV 96.7 H (79.0-92.2) fl MCH 31.6 (25.7-32.2) pg MCHC 32.7 (32.2-35.5) g/dl RDW Std Deviation 45.4 H (35.1-43.9) fL Plt Count 199 (163-337) K/mm3 MPV 10.0 (9.4-12.3) fl Neut % (Auto) 71.3 H (34.0-67.9) % Lymph % (Auto) 18.1 L (21.8-53.1) % Moore % (Auto) 8.3 (5.3-12.2) % Eos % (Auto) 1.8 (0.8-7.0) Baso % (Auto) 0.3 (0.1-1.2) % Neut # (Auto) 4.70 (1.78-5.38) K/mm3 Lymph # (Auto) 1.19 L (1.32-3.57) K/mm3 Moore # (Auto) 0.55 (0.30-0.82) K/mm3 Eos # (Auto) 0.12 (0.04-0.54) K/mm3 Baso # (Auto) 0.02 (0.01-0.08) K/mm3 Sodium 137 (136-145) mEq/L Potassium 4.4 (3.5-5.1) mEq/L Chloride 103 (98-107) mEq/L Carbon Dioxide 27 (21-32) mEq/L Anion Gap 11.4 (5-15) BUN 17 (7-18) mg/dL Creatinine 1.2 (0.7-1.3) mg/dL Est Cr Clr Drug Dosing 49.08 mL/min Estimated GFR (MDRD) 59 (>60) mL/min BUN/Creatinine Ratio 14.2 (14-18) Glucose 206 H (83-115) mg/dL Calcium 8.9 (8.5-10.1) mg/dL Total Bilirubin 0.4 (0.2-1.0) mg/dL AST 22 (15-37) U/L ALT 27 (16-63) U/L Alkaline Phosphatase 90 (46-116) U/L Total Protein 7.5 (6.4-8.2) g/dl Albumin 3.4 (3.4-5.0) g/dl Globulin 4.1 gm/dL Albumin/Globulin Ratio 0.8 L (1-2) Lipase 69 L (73-393) U/L Meds: Medications Generic Name Dose Route Start Last Admin Trade Name Freq PRN Reason Stop Dose Admin Sodium Chloride 1,000 mls @ 125 mls/hr 01/01/18 15:45 01/01/18 15:49 Normal Saline IV 125 mls/hr ASDIRECTED HARRISON Administration Sodium Chloride 10 ml 01/01/18 15:34 01/01/18 17:19 Saline Flush FLUSH 10 ml ASDIRECTED PRN Administration Keep Vein Open Sodium Chloride 10 ml 01/01/18 16:47 01/01/18 18:05 Saline Flush FLUSH 10 ml ONETIME PRN Administration IV FLUSH Discontinued Medications Generic Name Dose Route Start Last Admin Trade Name Freq PRN Reason Stop Dose Admin Diatrizoate Meglum/Diatrizoate Sod 90 ml 01/01/18 16:47 01/01/18 17:17 Gastrografin 37% PO 01/01/18 16:48 90 ml ONETIME ONE Administration Iopamidol 125 ml 01/01/18 16:47 01/01/18 17:18 Isovue-300 (61%) IVPUSH 01/01/18 16:48 125 ml ONETIME ONE Administration Departure - Departure Disposition: Home, Self-Care 01 Clinical Impression: Rectal bleeding Constipation Qualifiers: Constipation type: other constipation type Qualified Code(s): K59.09 - Other constipation - Discharge Information Referrals: Eugenie Sen [facility] COUNSELOR [Primary Care Provider] - Anmol Colunga MD [Physician] - 1 Week Richar Medina MD [Ordering Only Provider] - 1 Week Forms: ED Department Discharge Additional Instructions: Take your medication as prescribed. Drink plenty of water. Eat some more fiber in your diet. Follow up with Eugenie Sen or Dr Lambert or Dr Medina for a colonoscopy. Please return if you are worse. - My Orders Last 24 Hours: My Active Orders 01/01/18 15:34 Sodium Chloride 0.9% [Saline Flush] 10 ml FLUSH ASDIRECTED PRN Peripheral IV Insertion Adult [OM.PC] Stat 01/01/18 15:36 Peripheral IV Care [RC] . DIRECTED 01/01/18 15:45 Sodium Chloride 0.9% [Normal Saline] 1,000 ml IV ASDIRECTED 01/01/18 16:47 Sodium Chloride 0.9% [Saline Flush] 10 ml FLUSH ONETIME PRN - Assessment/Plan Last 24 Hours: My Active Orders 01/01/18 15:34 Sodium Chloride 0.9% [Saline Flush] 10 ml FLUSH ASDIRECTED PRN Peripheral IV Insertion Adult [OM.PC] Stat 01/01/18 15:36 Peripheral IV Care [RC] . DIRECTED 01/01/18 15:45 Sodium Chloride 0.9% [Normal Saline] 1,000 ml IV ASDIRECTED 01/01/18 16:47 Sodium Chloride 0.9% [Saline Flush] 10 ml FLUSH ONETIME PRN <Stalin Walsh - Last Filed: 01/01/18 18:39> Course - Re-Assessments/Exams Free Text/Narrative Re-Assessment/Exam: 01/01/18 18:31 I examined the patient myself and I agree with Radha's assessment and plan. I ordered an IV NS, labs and a CT of his abdomen and pelvis. The CT shows multiple areas of narrowing within the colon most likely due to lack of distention. Given the history of bloody stool, endoscopy should be considered to make sure none of these represent carcinoma. He did have a colonoscopy about 7 years ago that looked good. He will make an appointment for another colonoscopy. His CBC looks good. His glucose was 206. His lipase was negative. He had 2 bowel movements with no blood. I feel he may have had a fissure from the constipation. I will discharge him home with follow up for colonoscopy. Departure - Departure Time of Disposition: 18:35 Condition: Good
[2018-01-01] MEDS ORDERED: Sodium Chloride 0.9% 1,000 ML IV SCH (15:45)
[2018-01-01] MEDS: Sodium Chloride 0.9% 10 ML Syringe FLUSH PRN ×2 (15:49→17:19)
[2018-01-01] MEDS ORDERED: Iopamidol 612 MG/ML 150 ML Bottle IVPUSH ONE (16:47)
[2018-01-01] MEDS ORDERED: Sodium Chloride 0.9% 10 ML Syringe FLUSH PRN (16:47)
[2018-01-01] MEDS ORDERED: Diatrizoate Meglumine/Diatrizoate Sodium 37% 120 ML Bottle PO ONE (16:47)
--- NOTE | 2018-01-01 17:49 | CT ---
CT abdomen and pelvis Technique: Multiple axial sections were obtained from above the dome of the diaphragm inferiorly through the pubic symphysis. Intravenous and oral contrast was utilized. Delayed images were also obtained through the bladder. Comparison: No prior CT abdomen or pelvis study is available. Findings: Visualized lung bases shows nothing acute. Liver shows no focal parenchymal abnormality. Spleen appears within normal limits. Adrenal glands show no nodule. Pancreas shows fatty infiltration. Kidneys show symmetric contrast enhancement without hydronephrosis or mass. Delayed images shows contrast within the distal ureters and within the bladder. Aorta shows atherosclerotic calcification which continues into the iliac vessels. No aneurysm is seen. No retroperitoneal adenopathy or mesenteric abnormalities are seen. Fat-containing abdominal wall hernia seen anteriorly. Fat-containing left inguinal hernia is noted. No free fluid or inflammatory change is seen. Appendix is seen which appears normal in size. Several focal areas of narrowing are seen within the colon. These are felt to be due to multiple areas showing lack of distention but given the patient's history of bloody stool endoscopy could be considered to further evaluate and rule out carcinoma. Impression: 1. Multiple areas of narrowing within the colon most likely due to lack of distention. As mentioned above, given the history of bloody stool, endoscopy should be considered to make sure none of these represent carcinoma. 2. Other incidental findings as noted above. Nothing acute is otherwise seen. Diagnostic code #3
== END 2018-01-01 18:47 | disposition home or self-care (01) ==
LOC: JD.ED 14:30
DX: K62.5 Hemorrhage of anus and rectum (principal); K59.09 Other constipation; I11.0 Hypertensive heart disease with heart failure; I50.9 Heart failure, unspecified; J44.9 Chronic obstructive pulmonary disease, unspecified; I48.91 Unspecified atrial fibrillation; M19.90 Unspecified osteoarthritis, unspecified site; E11.40 Type 2 diabetes mellitus with diabetic neuropathy, unspecified; Z79.4 Long term (current) use of insulin; Z79.899 Other long term (current) drug therapy; Z88.8 Allergy status to other drugs, medicaments and biological substances; Z88.0 Allergy status to penicillin; Z88.1 Allergy status to other antibiotic agents
CPT/HCPCS: 36415; 74177; 80053; 83690; 85025; 96360; 96361; 99284; J7040; J7050; Q9963; Q9967

== ENCOUNTER 2019-02-27 10:28 | Observation (INO) | payer MEDICARE, BC ==
[2019-02-27] MEDS ORDERED: Sodium Chloride 0.9% 10 ML Syringe FLUSH PRN (11:15)
--- NOTE | 2019-02-27 11:20 | EDM.PDOC ---
ED HPI GENERAL MEDICAL PROBLEM - General Chief Complaint: Genitourinary Problem Stated Complaint: BLOOD IN URINE Time Seen by Provider: 02/27/19 11:02 Source of Information: Reports: Patient, Family History Limitations: Reports: No Limitations - History of Present Illness INITIAL COMMENTS - FREE TEXT/NARRATIVE: Patient is a 78-year-old male who presents to the ED feeling tired, fatigued, weak with complaints of increased frequency of urination this past evening. He was up every hour to go to the bathroom. He was diagnosed with a UTI Feb 25 and placed on Bactrim. Initially had dysuria that has since resolved. He did take Azo yesterday but none as of today. His urine is strong in order. Questionable blood this morning. He's also had some chills at times. There's been no documented fever. He's been eating well and drinking well. states he did have rigors last night. Patient at no time complains of chest pain, cough , abdominal pain, diarrhea, bloody stools, or dark tarry stools. Urine culture was obtained with no results as of yet per patient. - Related Data Allergies Allergy/AdvReac Type Severity Reaction Status Date / Time Cephalosporins Allergy Rash Verified 02/27/19 10:41 furosemide [From Lasix] Allergy Hives Verified 02/27/19 10:41 Penicillins Allergy Rash Verified 02/27/19 10:41 simvastatin Allergy Rash Verified 02/27/19 10:41 insulin aspart AdvReac Stomach Verified 02/27/19 10:41 [From Novolog U-100 Insulin Upset aspart] Home Meds: Home Meds Calcium Polycarbophil [Fiber Laxative] 1,250 mg PO BEDTIME 02/27/19 [History] Canagliflozin/Metformin HCl [Invokamet Xr 150-500 mg Tablet] 2 tab PO DAILY [History] Clopidogrel Bisulfate [Clopidogrel] 75 mg PO DAILY 02/27/19 [History] Diclofenac Sodium 4 g TOP QID PRN 02/27/19 [History] Diltiazem HCl [Diltiazem ER] 180 mg PO DAILY 02/27/19 [History] Gabapentin [Neurontin] 1 cap PO BEDTIME 02/27/19 [History] Insulin Glargine,Hum.Rec.Anlog [Makenzie Mcihelle] 44 units SQ DAILY 02/27/19 [ History] Insulin Glulisine [Apidra Solostar] 0 units SQ TID PRN 02/27/19 [History] Insulin Glulisine [Apidra Solostar] 5 units SQ TIDMEALS 02/27/19 [History] LORazepam 1 mg PO TID PRN 02/27/19 [History] Metoprolol Succinate 50 mg PO DAILY 02/27/19 [History] Mupirocin Oint [Bactroban Oint] 1 applic TOP BID 02/27/19 [History] Phenazopyridine HCl [Azo Urinary Pain Relief] 95 mg PO DAILY 02/27/19 [History] Pregabalin [Lyrica] 25 mg PO BID 02/27/19 [History] Rivaroxaban [Xarelto] 20 mg PO DAILY 02/27/19 [History] Rosuvastatin Calcium 10 mg PO DAILY 02/27/19 [History] Spironolactone [Aldactone] 50 mg PO DAILY 02/27/19 [History] Sulfamethoxazole/Trimethoprim [Bactrim Ds Tablet] 1 tab PO BID 02/27/19 [History ] Triamcinolone Acetonide [Triamcinolone Acetonide 0.1% Oint] 1 applic TOP TID [History] traMADol HCl [Tramadol HCl] 50 - 100 mg PO Q4HR PRN MDD 8 tabs 02/27/19 [History ] Past Medical History HEENT History: Reports: Hard of Hearing Other HEENT History: vertigo Cardiovascular History: Reports: Afib, Heart Failure, High Cholesterol, Hypertension Other Cardiovascular History: Stent x 1 Respiratory History: Reports: COPD Other Respiratory History: cough for past week Gastrointestinal History: Reports: Other (See Below) Other Gastrointestinal History: Lg umbilical hernia Other Genitourinary History: pt states dribbles urine alot Musculoskeletal History: Reports: Osteoarthritis Neurological History: Reports: Neuropathy, Diabetic Other Neuro History: states memory loss Endocrine/Metabolic History: Reports: Diabetes, Type II Oncologic (Cancer) History: Reports: Prostate Other Oncologic History: prostate cancer Dermatologic History: Reports: Psoriasis - Infectious Disease History Infectious Disease History: Reports: Rheumatic Fever - Past Surgical History HEENT Surgical History: Reports: Cataract Surgery Social & Family History - Family History Family Medical History: Noncontributory - Tobacco Use Smoking Status *Q: Never Smoker - Caffeine Use Caffeine Use: Reports: Coffee Other Caffeine Use: 1 cup in the morning - Living Situation & Occupation Living situation: Reports: 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 Denies: Fever, Decreased Appetite HEENT: Reports: No Symptoms Respiratory: Denies: Shortness of Breath, Wheezing, Pleuritic Chest Pain, Cough , Sputum, Hemoptysis Cardiovascular: Reports: No Symptoms GI/Abdominal: Reports: Constipation. Denies: Abdominal Pain, Black Stool, Bloody Stool, Diarrhea, Decreased Appetite, Distension, Flatus, Hematemesis, Hematochezia, Nausea, Vomiting : Reports: Frequency, Hematuria, Urgency. Denies: Dysuria, Incontinence, Urinary Retention Musculoskeletal: Reports: No Symptoms Neurological: Reports: No Symptoms ED EXAM, RENAL/ - Physical Exam Exam: See Below Exam Limited By: No Limitations General Appearance: Alert, WD/WN, No Apparent Distress Eye Exam: Bilateral Eye: Normal Inspection, PERRL Ears: Hearing Grossly Normal Nose: Normal Inspection Throat/Mouth: Normal Inspection, Normal Oropharynx, Normal Voice, No Airway Compromise Head: Atraumatic, Normocephalic Neck: Normal Inspection, Supple, Non-Tender, Full Range of Motion Respiratory/Chest: No Respiratory Distress, Lungs Clear, Normal Breath Sounds, No Accessory Muscle Use, Chest Non-Tender Cardiovascular: Normal Peripheral Pulses, Regular Rate, Rhythm, No Murmur GI/Abdominal: Normal Bowel Sounds, Soft, Non-Tender, No Organomegaly, No Distention, Other (Umbilical hernia. No pain. ) (Male) Exam: Deferred Rectal (Males) Exam: Deferred Back Exam: Normal Inspection. No: CVA Tenderness (L), CVA Tenderness (R) Extremities: Normal Inspection, Pedal Edema (1+ bilateral) Neurological: Alert, Oriented, CN II-XII Intact, Normal Cognition, No Motor/ Sensory Deficits Psychiatric: Normal Affect, Normal Mood Skin Exam: Warm, Dry, Intact, Normal Color, No Rash Course - Vital Signs Last Recorded V/S: Last Vital Signs Temp 98.8 F 02/27/19 23:58 Pulse 110 H 02/27/19 23:58 Resp 16 02/27/19 23:58 BP 125/59 L 02/27/19 23:58 Pulse Ox 91 L 02/27/19 23:58 - Orders/Labs/Meds Orders: Active Orders 24 hr Category Date Time Status Sodium Chloride 0.9% [Saline Flush] Med 02/27/19 11:15 Active 10 ml FLUSH ASDIRECTED PRN Peripheral IV Insertion Adult [OM.PC] Routine Oth 02/27/19 11:15 Ordered Medication Orders Acetaminophen (Tylenol) 650 mg PO Q4H PRN PRN Reason: Pain (Mild 1-3)/fever Hydrocodone Bitart/Acetaminophen ([place] 325-5 Mg) 1 tab PO Q4H PRN PRN Reason: Pain (moderate 4-6) Albuterol/Ipratropium (Duoneb 3.0-0.5 Mg/3 Ml) 3 ml NEB Q4H PRN PRN Reason: Shortness Of Breath/wheezing Bisacodyl (Dulcolax) 5 mg PO DAILY PRN PRN Reason: Constipation Calcium Polycarbophil (Fibercon) 1,250 mg PO BEDTIME [facility] Last Admin: 02/27/19 21:42 Dose: 1,250 mg Dextrose/Water (Dextrose 50% In Water) 50 ml IVPUSH ASDIRECTED PRN PRN Reason: Hypoglycemia Docusate Sodium (Colace) 100 mg PO BID PRN PRN Reason: Constipation Hydromorphone HCl (Dilaudid) 0.25 mg IVPUSH Q2H PRN PRN Reason: Pain (severe 7-10) Promethazine HCl 6.25 mg/ (Sodium Chloride) 50.25 mls @ 100 mls/hr IV Q6H PRN PRN Reason: Nausea/Vomiting Meropenem/Sodium Chloride (Meropenem) 50 mls @ 100 mls/hr IV Q6H [facility] Last Admin: 02/27/19 21:35 Dose: 100 mls/hr Insulin Human Lispro (Humalog) 0 unit SUBCUT QIDACANDBED [facility]; Protocol Last Admin: 02/27/19 21:41 Dose: Not Given Lorazepam (Ativan) 0.25 mg IV Q6H PRN PRN Reason: Anxiety Lorazepam (Ativan) 1 mg PO TID PRN PRN Reason: Anxiety Non-Formulary Medication (Canagliflozin/Metformin Hcl [Invokamet Xr 150-500 Mg Tablet]) 2 tab PO DAILY [facility] Ondansetron HCl (Zofran) 4 mg IV Q6H PRN PRN Reason: Nausea/Vomiting Pantoprazole Sodium (Protonix Iv) 40 mg IV Q12HR [facility] Last Admin: 02/27/19 21:45 Dose: 40 mg Polyethylene Glycol (Miralax) 17 gm PO DAILY PRN PRN Reason: Constipation Rivaroxaban (Xarelto) 20 mg PO DAILY [facility] Senna/Docusate Sodium (Senna Plus) 1 tab PO BID PRN PRN Reason: Constipation Sodium Chloride (Saline Flush) 10 ml FLUSH ASDIRECTED PRN PRN Reason: Keep Vein Open Last Admin: 02/27/19 11:34 Dose: 10 ml Tramadol HCl (Ultram) 50 - 100 mg PO Q4HR PRN PRN Reason: Pain Labs: Laboratory Tests 02/27/19 02/27/19 02/27/19 Range/Units 11:34 11:34 11:34 WBC 6.19 (4.23-9.07) K/mm3 RBC 4.35 L (4.63-6.08) M/mm3 Hgb 14.0 (13.7-17.5) gm/L Hct 42.3 (40.1-51.0) % MCV 97.2 H (79.0-92.2) fl MCH 32.2 (25.7-32.2) pg MCHC 33.1 (32.2-35.5) g/dl RDW Std Deviation 46.1 H (35.1-43.9) fL Plt Count 173 (163-337) K/mm3 MPV 10.3 (9.4-12.3) fl Neutrophils % (Manual) 90 H (40-60) % Band Neutrophils % 0 (0-10) % Lymphocytes % (Manual) 8 L (20-40) % Atypical Lymphs % 0 % Immat Monocytes % (Man) 0 Monocytes % (Manual) 1 L (2-10) % Eosinophils % (Manual) 1 (0.8-7.0) % Basophils % (Manual) 0 L (0.2-1.2) Metamyelocytes % 0 Myelocytes % 0 Promyelocytes % 0 Blast Cells % 0 Plasma Cell % (Manual) 0 Nucleated RBCs 0.0 % Platelet Estimate Adequate RBC Morph Comment Normal Sodium 135 L (136-145) mEq/L Potassium 4.3 (3.5-5.1) mEq/L Chloride 99 (98-107) mEq/L Carbon Dioxide 26 (21-32) mEq/L Anion Gap 14.3 (5-15) BUN 16 (7-18) mg/dL Creatinine 1.3 (0.7-1.3) mg/dL Est Cr Clr Drug Dosing TNP Estimated GFR (MDRD) 53 (>60) mL/min BUN/Creatinine Ratio 12.3 L (14-18) Glucose 129 H (83-115) mg/dL Lactic Acid 1.1 (0.4-2.0) mmol/L Calcium 8.5 (8.5-10.1) mg/dL Total Bilirubin 1.0 (0.2-1.0) mg/dL AST 21 (15-37) U/L ALT 26 (16-63) U/L Alkaline Phosphatase 82 (46-116) U/L C-Reactive Protein 4.8 H* (<1.0) mg/dL Total Protein 7.7 (6.4-8.2) g/dl Albumin 3.3 L (3.4-5.0) g/dl Globulin 4.4 gm/dL Albumin/Globulin Ratio 0.8 L (1-2) Urine Color (Yellow) Urine Appearance (Clear) Urine pH (5.0-8.0) Ur Specific [place] (1.005-1.030) Urine Protein (Negative) Urine Glucose (UA) (Negative) Urine Ketones (Negative) Urine Occult Blood (Negative) Urine Nitrite (Negative) Urine Bilirubin (Negative) Urine Urobilinogen (0.2-1.0) Ur Leukocyte Esterase (Negative) Urine RBC (0-5) /hpf Urine WBC (0-5) /hpf Ur Squamous Epith Cells (0-5) /hpf Urine Bacteria (FEW) /hpf Urine Mucus (FEW) /hpf 02/27/19 Range/Units 12:21 WBC (4.23-9.07) K/mm3 RBC (4.63-6.08) M/mm3 Hgb (13.7-17.5) gm/L Hct (40.1-51.0) % MCV (79.0-92.2) fl MCH (25.7-32.2) pg MCHC (32.2-35.5) g/dl RDW Std Deviation (35.1-43.9) fL Plt Count (163-337) K/mm3 MPV (9.4-12.3) fl Neutrophils % (Manual) (40-60) % Band Neutrophils % (0-10) % Lymphocytes % (Manual) (20-40) % Atypical Lymphs % % Immat Monocytes % (Man) Monocytes % (Manual) (2-10) % Eosinophils % (Manual) (0.8-7.0) % Basophils % (Manual) (0.2-1.2) Metamyelocytes % Myelocytes % Promyelocytes % Blast Cells % Plasma Cell % (Manual) Nucleated RBCs % Platelet Estimate RBC Morph Comment Sodium (136-145) mEq/L Potassium (3.5-5.1) mEq/L Chloride (98-107) mEq/L Carbon Dioxide (21-32) mEq/L Anion Gap (5-15) BUN (7-18) mg/dL Creatinine (0.7-1.3) mg/dL Est Cr Clr Drug Dosing Estimated GFR (MDRD) (>60) mL/min BUN/Creatinine Ratio (14-18) Glucose (83-115) mg/dL Lactic Acid (0.4-2.0) mmol/L Calcium (8.5-10.1) mg/dL Total Bilirubin (0.2-1.0) mg/dL AST (15-37) U/L ALT (16-63) U/L Alkaline Phosphatase (46-116) U/L C-Reactive Protein (<1.0) mg/dL Total Protein (6.4-8.2) g/dl Albumin (3.4-5.0) g/dl Globulin gm/dL Albumin/Globulin Ratio (1-2) Urine Color Yellow (Yellow) Urine Appearance Clear (Clear) Urine pH 6.0 (5.0-8.0) Ur Specific [place] 1.020 (1.005-1.030) Urine Protein Negative (Negative) Urine Glucose (UA) Negative (Negative) Urine Ketones Negative (Negative) Urine Occult Blood Trace-lysed H (Negative) Urine Nitrite Positive H (Negative) Urine Bilirubin Negative (Negative) Urine Urobilinogen 1.0 (0.2-1.0) Ur Leukocyte Esterase Trace H (Negative) Urine RBC 5-10 H (0-5) /hpf Urine WBC 10-20 H (0-5) /hpf Ur Squamous Epith Cells 0-5 (0-5) /hpf Urine Bacteria Few (FEW) /hpf Urine Mucus Few (FEW) /hpf Meds: Medications Generic Name Dose Route Start Last Admin Trade Name Freq PRN Reason Stop Dose Admin Acetaminophen 650 mg 02/27/19 18:10 Tylenol PO Q4H PRN Pain (Mild 1-3)/fever Hydrocodone Bitart/Acetaminophen 1 tab 02/27/19 18:10 [place] 325-5 Mg PO Q4H PRN Pain (moderate 4-6) Albuterol/Ipratropium 3 ml 02/27/19 18:10 Duoneb 3.0-0.5 Mg/3 Ml NEB Q4H PRN Shortness Of Breath/wheezing Bisacodyl 5 mg 02/27/19 18:10 Dulcolax PO DAILY PRN Constipation Calcium Polycarbophil 1,250 mg 02/27/19 21:00 02/27/19 21:42 Fibercon PO 1,250 mg BEDTIME [facility] Administration Dextrose/Water 50 ml 02/27/19 18:19 Dextrose 50% In Water IVPUSH ASDIRECTED PRN Hypoglycemia Docusate Sodium 100 mg 02/27/19 18:10 Colace PO BID PRN Constipation Hydromorphone HCl 0.25 mg 02/27/19 18:10 Dilaudid IVPUSH Q2H PRN Pain (severe 7-10) Promethazine HCl 6.25 mg/ 50.25 mls @ 100 mls/hr 02/27/19 18:10 Sodium Chloride IV Q6H PRN Nausea/Vomiting Meropenem/Sodium Chloride 50 mls @ 100 mls/hr 02/27/19 21:00 02/27/19 21:35 Meropenem IV 100 mls/hr Q6H [facility] Administration Insulin Human Lispro 0 unit 02/27/19 22:00 02/27/19 21:41 Humalog SUBCUT Not Given QIDACANDBED [facility] Protocol Lorazepam 0.25 mg 02/27/19 18:10 Ativan IV Q6H PRN Anxiety Lorazepam 1 mg 02/27/19 18:15 Ativan PO TID PRN Anxiety Non-Formulary Medication 2 tab 02/28/19 09:00 Canagliflozin/Metformin Hcl [Invokamet Xr 150-500 Mg Tablet] PO DAILY [facility] Ondansetron HCl 4 mg 02/27/19 18:10 Zofran IV Q6H PRN Nausea/Vomiting Pantoprazole Sodium 40 mg 02/27/19 21:00 02/27/19 21:45 Protonix Iv IV 40 mg Q12HR [facility] Administration Polyethylene Glycol 17 gm 02/27/19 18:10 Miralax PO DAILY PRN Constipation Rivaroxaban 20 mg 02/28/19 09:00 Xarelto PO DAILY [facility] Senna/Docusate Sodium 1 tab 02/27/19 18:10 Senna Plus PO BID PRN Constipation Sodium Chloride 10 ml 02/27/19 11:15 02/27/19 11:34 Saline Flush FLUSH 10 ml ASDIRECTED PRN Administration Keep Vein Open Tramadol HCl 50 - 100 mg 02/27/19 18:15 Ultram PO Q4HR PRN Pain Discontinued Medications Generic Name Dose Route Start Last Admin Trade Name Freq PRN Reason Stop Dose Admin Diphenhydramine HCl 25 mg 02/27/19 19:13 02/27/19 20:22 Benadryl IVPUSH 02/27/19 19:14 25 mg ONETIME ONE Administration Sodium Chloride 1,000 mls @ 150 mls/hr 02/27/19 11:15 02/27/19 19:13 Normal Saline IV 150 mls/hr ASDIRECTED [facility] Administration Meropenem 1 gm/ Sodium 100 mls @ 200 mls/hr 02/27/19 19:30 02/27/19 22:48 Chloride IV Not Given Q8H [facility] Meropenem 1 gm 02/27/19 18:30 02/27/19 20:29 Merrem IVPUSH Not Given Q8H [facility] Methylprednisolone Sodium Succinate 40 mg 02/27/19 19:13 02/27/19 20:22 Solu-Medrol IVPUSH 02/27/19 19:14 40 mg ONETIME ONE Administration - Re-Assessments/Exams Free Text/Narrative Re-Assessment/Exam: IV established with normal saline 150 mL per hour. Initial labs and studies will include CBC, chem 14, CRP, lactic acid, and UA. Urine culture from 02/25/2019 grew out proteus mirabilis >100,000 CFU Gram Negative Rods. Sensitive to Bactrim with ALVARO of 2/38. Patient has completed two days of treatment. Labs reviewed. Per nursing staff patient was unable to stand up on his own due to weakness. He normally uses canes to ambulate and at times a walker. Patient would benefit from admission. Patient agrees. 02/27/19 15:19 Dr. Pinzon has agreed to admit for unresolved UTI with weakness. He will ordered the IV antibiotic of his choice on the floor. Departure - Departure Time of Disposition: 14:31 Disposition: Admitted As Inpatient 65 Condition: Good Clinical Impression: Weakness Urinary tract infection Qualifiers: Urinary tract infection type: site unspecified Hematuria presence: with hematuria Qualified Code(s): N39.0 - Urinary tract infection, site not specified - Discharge Information - My Orders Last 24 Hours: My Active Orders 02/27/19 11:15 Sodium Chloride 0.9% [Saline Flush] 10 ml FLUSH ASDIRECTED PRN Peripheral IV Insertion Adult [OM.PC] Routine - Assessment/Plan Last 24 Hours: My Active Orders 02/27/19 11:15 Sodium Chloride 0.9% [Saline Flush] 10 ml FLUSH ASDIRECTED PRN Peripheral IV Insertion Adult [OM.PC] Routine
[2019-02-27] MEDS: Sodium Chloride 0.9% 1,000 ML IV SCH ×2 (11:34→19:13)
--- NOTE | 2019-02-27 17:05 | PCM.HP.2 ---
<Cooper Florez - Last Filed: 02/27/19 16:54> H&P History of Present Illness - General Date of Service: 02/27/19 Admit Problem/Dx: Admission Diagnosis/Problem Admission Diagnosis/Problem UTI, Urinary tract infectious disease - History of Present Illness Initial Comments - Free Text/Narative: Patient is 78 yo male with hx/o CHF, HTN, Afib, COPD, Type II DM, prostate cancer, psoriasis, presents to med/surg after admission from ER for dysuria and weakness. Pt states that on Sunday02/24/19, he experienced an episode of severe dysuria. He states the urine appeared cloudy and had a strong, foul odor. The following day he called into Dr. Noriega's office, where he was instructed to come to the lab and give a urine sample. It was confirmed then that he had a UTI and he received a prescription for Bactrim. He had taken 2 tablets of Bactrim prior to presentation to ER. The day of admission, patient reports he was feeling cold, having chills, and felt weak and fatigued. The decision was made by family to bring him to the ER because they felt that he was not himself. Pt and family deny that he was confused, but simply in a 'fog.' In ER it was determined that he was very weak and would benefit from admissi Primary labs obtained in ER show sodium of 135, Glucose 129, CRP 4.8, albumin 3.3. UA showed traced blood, positive nitrites, 5-10 RBCs, 10-20 WBCs, trace leukocyte esterase. - Related Data Allergies/Adverse Reactions: Allergies Allergy/AdvReac Type Severity Reaction Status Date / Time Cephalosporins Allergy Rash Verified 02/27/19 10:41 furosemide [From Lasix] Allergy Hives Verified 02/27/19 10:41 Penicillins Allergy Rash Verified 02/27/19 10:41 simvastatin Allergy Rash Verified 02/27/19 10:41 insulin aspart AdvReac Stomach Verified 02/27/19 10:41 [From Novolog U-100 Insulin Upset aspart] Home Medications: Home Meds Calcium Polycarbophil [Fiber Laxative] 1,250 mg PO BEDTIME 02/27/19 [History] Canagliflozin/Metformin HCl [Invokamet Xr 150-500 mg Tablet] 2 tab PO DAILY [History] Clopidogrel Bisulfate [Clopidogrel] 75 mg PO DAILY 02/27/19 [History] Diclofenac Sodium 4 g TOP QID PRN 02/27/19 [History] Diltiazem HCl [Diltiazem ER] 180 mg PO DAILY 02/27/19 [History] Gabapentin [Neurontin] 1 cap PO BEDTIME 02/27/19 [History] Insulin Glargine,Hum.Rec.Anlog [Toujeo Solostar] 44 units SQ DAILY 02/27/19 [ History] Insulin Glulisine [Apidra Solostar] 0 units SQ TID PRN 02/27/19 [History] Insulin Glulisine [Apidra Solostar] 5 units SQ TIDMEALS 02/27/19 [History] LORazepam 1 mg PO TID PRN 02/27/19 [History] Metoprolol Succinate 50 mg PO DAILY 02/27/19 [History] Mupirocin Oint [Bactroban Oint] 1 applic TOP BID 02/27/19 [History] Phenazopyridine HCl [Azo Urinary Pain Relief] 95 mg PO DAILY 02/27/19 [History] Pregabalin [Lyrica] 25 mg PO BID 02/27/19 [History] Rivaroxaban [Xarelto] 20 mg PO DAILY 02/27/19 [History] Rosuvastatin Calcium 10 mg PO DAILY 02/27/19 [History] Spironolactone [Aldactone] 50 mg PO DAILY 02/27/19 [History] Sulfamethoxazole/Trimethoprim [Bactrim Ds Tablet] 1 tab PO BID 02/27/19 [History ] Triamcinolone Acetonide [Triamcinolone Acetonide 0.1% Oint] 1 applic TOP TID [History] traMADol HCl [Tramadol HCl] 50 - 100 mg PO Q4HR PRN MDD 8 tabs 02/27/19 [History ] Past Medical History HEENT History: Reports: Hard of Hearing Other HEENT History: vertigo Cardiovascular History: Reports: Afib, Heart Failure, High Cholesterol, Hypertension Other Cardiovascular History: Stent x 1 Respiratory History: Reports: COPD Other Respiratory History: cough for past week Gastrointestinal History: Reports: Other (See Below) Other Gastrointestinal History: Lg umbilical hernia Other Genitourinary History: pt states dribbles urine alot Musculoskeletal History: Reports: Osteoarthritis Neurological History: Reports: Neuropathy, Diabetic Other Neuro History: states memory loss Endocrine/Metabolic History: Reports: Diabetes, Type II Oncologic (Cancer) History: Reports: Prostate Other Oncologic History: prostate cancer Dermatologic History: Reports: Psoriasis - Infectious Disease History Infectious Disease History: Reports: Rheumatic Fever - Past Surgical History HEENT Surgical History: Reports: Cataract Surgery Social & Family History - Family History Family Medical History: Noncontributory - Tobacco Use Smoking Status *Q: Never Smoker - Caffeine Use Caffeine Use: Reports: Coffee Other Caffeine Use: 1 cup in the morning - Living Situation & Occupation Living situation: Reports: 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[employer].) H&P Review of Systems - Review of Systems: General: Reports: Chills, Weakness, Fatigue HEENT: Reports: No Symptoms Pulmonary: Reports: No Symptoms Cardiovascular: Reports: No Symptoms Gastrointestinal: Reports: Abdominal Pain, Constipation Genitourinary: Reports: Dysuria, Frequency, Burning, Pain, Urgency, Incontinence , Hematuria Musculoskeletal: Reports: No Symptoms Skin: Reports: No Symptoms Psychiatric: Reports: No Symptoms Neurological: Reports: No Symptoms Hematologic/Lymphatic: Reports: No Symptoms Immunologic: Reports: No Symptoms Exam - Exam Exam: See Below - Vital Signs Vital Signs: Last Vital Signs Temp 98.7 F 02/27/19 10:37 Pulse 101 H 02/27/19 10:37 Resp 16 02/27/19 10:37 BP 118/70 02/27/19 10:37 Pulse Ox 97 02/27/19 10:37 Weight: 110.677 kg - Exam General: Alert, Oriented, Cooperative, Other (Fatigue, pt would drift off to sleep during interview) HEENT: Conjunctiva Clear, EACs Clear, EOMI, Hearing Intact (hard of hearing), Mucosa Moist & [place], Nares Patent, Pupils Equal, Pupils Reactive Neck: Supple, Trachea Midline. No: Lymphadenopathy, JVD Lungs: Clear to Auscultation, Normal Respiratory Effort. No: Crackles, Rales, Stridor, Wheezing Cardiovascular: Regular Rate, Regular Rhythm, Normal S1, Normal S2. No: Rubs, Gallop/S3, Gallop/S4 GI/Abdominal Exam: Normal Bowel Sounds, Soft, No Organomegaly, No Distention, No Mass, Tender (LLQ tenderness to deep palpation) (Male) Exam: Deferred Rectal (Males) Exam: Deferred Back Exam: Normal Inspection, Full Range of Motion. No: CVA Tenderness (L), CVA Tenderness (R), Paraspinal Tenderness Extremities: Normal Inspection, No Pedal Edema, Leg Pain (Diabetic neuropathy), Mottled. No: Joint Swelling Peripheral Pulses: 2+: Radial (L), Radial (R), Dorsalis Pedis (L), Dorsalis Pedis (R) Skin: Warm, Dry, Intact Neurological: Cranial Nerves Intact, Normal Speech, Normal Tone Neuro Extensive - Mental Status: Alert, Oriented x3, Normal Mood/Affect, Normal Cognition, Memory Intact Neuro Extensive - Motor, Sensory, Reflexes: CN II-XII Intact. No: Tremor Psychiatric: Alert, Normal Affect, Normal Mood - Patient Data Lab Results Last 24 hrs: Laboratory Results - last 24 hr 02/27/19 02/27/19 02/27/19 Range/Units 11:34 11:34 11:34 WBC 6.19 (4.23-9.07) K/mm3 RBC 4.35 L (4.63-6.08) M/mm3 Hgb 14.0 (13.7-17.5) gm/L Hct 42.3 (40.1-51.0) % MCV 97.2 H (79.0-92.2) fl MCH 32.2 (25.7-32.2) pg MCHC 33.1 (32.2-35.5) g/dl RDW Std Deviation 46.1 H (35.1-43.9) fL Plt Count 173 (163-337) K/mm3 MPV 10.3 (9.4-12.3) fl Neutrophils % (Manual) 90 H (40-60) % Band Neutrophils % 0 (0-10) % Lymphocytes % (Manual) 8 L (20-40) % Atypical Lymphs % 0 % Immat Monocytes % (Man) 0 Monocytes % (Manual) 1 L (2-10) % Eosinophils % (Manual) 1 (0.8-7.0) % Basophils % (Manual) 0 L (0.2-1.2) Metamyelocytes % 0 Myelocytes % 0 Promyelocytes % 0 Blast Cells % 0 Plasma Cell % (Manual) 0 Nucleated RBCs 0.0 % Platelet Estimate Adequate RBC Morph Comment Normal Sodium 135 L (136-145) mEq/L Potassium 4.3 (3.5-5.1) mEq/L Chloride 99 (98-107) mEq/L Carbon Dioxide 26 (21-32) mEq/L Anion Gap 14.3 (5-15) BUN 16 (7-18) mg/dL Creatinine 1.3 (0.7-1.3) mg/dL Est Cr Clr Drug Dosing TNP Estimated GFR (MDRD) 53 (>60) mL/min BUN/Creatinine Ratio 12.3 L (14-18) Glucose 129 H (83-115) mg/dL Lactic Acid 1.1 (0.4-2.0) mmol/L Calcium 8.5 (8.5-10.1) mg/dL Total Bilirubin 1.0 (0.2-1.0) mg/dL AST 21 (15-37) U/L ALT 26 (16-63) U/L Alkaline Phosphatase 82 (46-116) U/L C-Reactive Protein 4.8 H* (<1.0) mg/dL Total Protein 7.7 (6.4-8.2) g/dl Albumin 3.3 L (3.4-5.0) g/dl Globulin 4.4 gm/dL Albumin/Globulin Ratio 0.8 L (1-2) Urine Color (Yellow) Urine Appearance (Clear) Urine pH (5.0-8.0) Ur Specific [place] (1.005-1.030) Urine Protein (Negative) Urine Glucose (UA) (Negative) Urine Ketones (Negative) Urine Occult Blood (Negative) Urine Nitrite (Negative) Urine Bilirubin (Negative) Urine Urobilinogen (0.2-1.0) Ur Leukocyte Esterase (Negative) Urine RBC (0-5) /hpf Urine WBC (0-5) /hpf Ur Squamous Epith Cells (0-5) /hpf Urine Bacteria (FEW) /hpf Urine Mucus (FEW) /hpf 02/27/19 Range/Units 12:21 WBC (4.23-9.07) K/mm3 RBC (4.63-6.08) M/mm3 Hgb (13.7-17.5) gm/L Hct (40.1-51.0) % MCV (79.0-92.2) fl MCH (25.7-32.2) pg MCHC (32.2-35.5) g/dl RDW Std Deviation (35.1-43.9) fL Plt Count (163-337) K/mm3 MPV (9.4-12.3) fl Neutrophils % (Manual) (40-60) % Band Neutrophils % (0-10) % Lymphocytes % (Manual) (20-40) % Atypical Lymphs % % Immat Monocytes % (Man) Monocytes % (Manual) (2-10) % Eosinophils % (Manual) (0.8-7.0) % Basophils % (Manual) (0.2-1.2) Metamyelocytes % Myelocytes % Promyelocytes % Blast Cells % Plasma Cell % (Manual) Nucleated RBCs % Platelet Estimate RBC Morph Comment Sodium (136-145) mEq/L Potassium (3.5-5.1) mEq/L Chloride (98-107) mEq/L Carbon Dioxide (21-32) mEq/L Anion Gap (5-15) BUN (7-18) mg/dL Creatinine (0.7-1.3) mg/dL Est Cr Clr Drug Dosing Estimated GFR (MDRD) (>60) mL/min BUN/Creatinine Ratio (14-18) Glucose (83-115) mg/dL Lactic Acid (0.4-2.0) mmol/L Calcium (8.5-10.1) mg/dL Total Bilirubin (0.2-1.0) mg/dL AST (15-37) U/L ALT (16-63) U/L Alkaline Phosphatase (46-116) U/L C-Reactive Protein (<1.0) mg/dL Total Protein (6.4-8.2) g/dl Albumin (3.4-5.0) g/dl Globulin gm/dL Albumin/Globulin Ratio (1-2) Urine Color Yellow (Yellow) Urine Appearance Clear (Clear) Urine pH 6.0 (5.0-8.0) Ur Specific [place] 1.020 (1.005-1.030) Urine Protein Negative (Negative) Urine Glucose (UA) Negative (Negative) Urine Ketones Negative (Negative) Urine Occult Blood Trace-lysed H (Negative) Urine Nitrite Positive H (Negative) Urine Bilirubin Negative (Negative) Urine Urobilinogen 1.0 (0.2-1.0) Ur Leukocyte Esterase Trace H (Negative) Urine RBC 5-10 H (0-5) /hpf Urine WBC 10-20 H (0-5) /hpf Ur Squamous Epith Cells 0-5 (0-5) /hpf Urine Bacteria Few (FEW) /hpf Urine Mucus Few (FEW) /hpf Result Diagrams: 02/27/19 11:34 02/27/19 11:34 - Problem List (1) Urinary tract infection SNOMED Code(s): 27968369 ICD Code: N39.0 - URINARY TRACT INFECTION, SITE NOT SPECIFIED Status: Acute Current Visit: Yes Qualifiers: Urinary tract infection type: site unspecified Hematuria presence: with hematuria Qualified Code(s): N39.0 - Urinary tract infection, site not specified; R31.9 - Hematuria, unspecified (2) Type 2 diabetes mellitus, with long-term current use of insulin SNOMED Code(s): 585654729 ICD Code: E11.9 - TYPE 2 DIABETES MELLITUS WITHOUT COMPLICATIONS; Z79.4 - LONGTERM (CURRENT) USE OF INSULIN Status: Chronic Priority: High Current Visit: No Qualifiers: Diabetes mellitus complication status: with skin complications Diabetes mellitus complication detail: with other skin ulcer Qualified Code(s): E11.622 - Type 2 diabetes mellitus with other skin ulcer; Z79.4 - lobsterman ( current) use of insulin; Z79.4 - senior living (current) use of insulin; Z79.4 - [place] (current) use of insulin; Z79.4 - senior living (current) use of insulin Problem List Initiated/Reviewed/Updated: Yes Orders Last 24hrs: Active Orders 24 hr Category Date Time Status Patient Status [ADT] Routine ADT 02/27/19 16:00 Active Sodium Chloride 0.9% [Normal Saline] 1,000 ml Med 02/27/19 11:15 Active IV ASDIRECTED Sodium Chloride 0.9% [Saline Flush] Med 02/27/19 11:15 Active 10 ml FLUSH ASDIRECTED PRN Peripheral IV Insertion Adult [OM.PC] Routine Oth 02/27/19 11:15 Ordered Medication Orders Sodium Chloride (Normal Saline) 1,000 mls @ 150 mls/hr IV ASDIRECTED HARRISON Last Admin: 02/27/19 11:34 Dose: 150 mls/hr Sodium Chloride (Saline Flush) 10 ml FLUSH ASDIRECTED PRN PRN Reason: Keep Vein Open Last Admin: 02/27/19 11:34 Dose: 10 ml Assessment/Plan Comment:: Assessment: Acute: Urinary tract infection * laboratory values confirm * 3 day history of dysuria * Foul-smelling, cloudy urine * Positive for proteus mirabilis per previous UA done 02/25 * Positive nitrites, leukocyte esterase * WBC in urine Type II DM * initial glucose in ER 129 * Monitor blood glucose Diabetic Neuropathy * Bilateral pain to palpation * Unsteady on feet * Uses 2 canes for ambulation * Will need assistance Morbid obesity * 244 lbs * Consult with dietary Chronic: COPD, CHF, Afib, Type II DM, prostate cancer Plan: Admit to med/surg Antibiotics for UTI Monitor blood glucose Azo as needed Plenty of fluids LOS 1-2 days Code status: Prognosis guarded-good <Slick Pinzon - Last Filed: 02/28/19 21:22> H&P History of Present Illness - General Admit Problem/Dx: Admission Diagnosis/Problem Admission Diagnosis/Problem UTI, Urinary tract infectious disease H&P Review of Systems - Review of Systems: Review Of Systems: See Below Exam - Exam Exam: See Below - Vital Signs Vital Signs: Last Vital Signs Temp 36.4 C 02/28/19 15:19 Pulse 54 L 02/28/19 15:19 Resp 20 02/28/19 15:19 BP 116/61 02/28/19 15:19 Pulse Ox 99 02/28/19 15:19 - Patient Data Lab Results Last 24 hrs: Laboratory Results - last 24 hr 02/27/19 02/28/19 02/28/19 Range/Units 21:41 05:29 05:29 WBC 4.41 (4.23-9.07) K/mm3 RBC 4.31 L (4.63-6.08) M/mm3 Hgb 14.0 (13.7-17.5) gm/L Hct 41.8 (40.1-51.0) % MCV 97.0 H (79.0-92.2) fl MCH 32.5 H (25.7-32.2) pg MCHC 33.5 (32.2-35.5) g/dl RDW Std Deviation 45.4 H (35.1-43.9) fL Plt Count 167 (163-337) K/mm3 MPV 10.2 (9.4-12.3) fl Neut % (Auto) 91.5 H (34.0-67.9) % Lymph % (Auto) 6.3 L (21.8-53.1) % [place] % (Auto) 2.0 L (5.3-12.2) % Eos % (Auto) 0 L (0.8-7.0) Baso % (Auto) 0.0 L (0.1-1.2) % Neut # (Auto) 4.03 (1.78-5.38) K/mm3 Lymph # (Auto) 0.28 L (1.32-3.57) K/mm3 [place] # (Auto) 0.09 L (0.30-0.82) K/mm3 Eos # (Auto) 0.00 L (0.04-0.54) K/mm3 Baso # (Auto) 0.00 L (0.01-0.08) K/mm3 Manual Slide Review Abnormal smear Sodium 132 L (136-145) mEq/L Potassium 4.2 (3.5-5.1) mEq/L Chloride 100 (98-107) mEq/L Carbon Dioxide 19 L (21-32) mEq/L Anion Gap 17.2 H (5-15) BUN 17 (7-18) mg/dL Creatinine 1.0 (0.7-1.3) mg/dL Est Cr Clr Drug Dosing 57.95 mL/min Estimated GFR (MDRD) > 60 (>60) mL/min BUN/Creatinine Ratio 17.0 (14-18) Glucose 224 H (83-115) mg/dL POC Glucose 133 H (83-110) mg/dL Calcium 8.2 L (8.5-10.1) mg/dL Magnesium 1.8 (1.8-2.4) mg/dl C-Reactive Protein 8.2 H* (<1.0) mg/dL 02/28/19 02/28/19 02/28/19 Range/Units 06:16 11:38 17:28 WBC (4.23-9.07) K/mm3 RBC (4.63-6.08) M/mm3 Hgb (13.7-17.5) gm/L Hct (40.1-51.0) % MCV (79.0-92.2) fl MCH (25.7-32.2) pg MCHC (32.2-35.5) g/dl RDW Std Deviation (35.1-43.9) fL Plt Count (163-337) K/mm3 MPV (9.4-12.3) fl Neut % (Auto) (34.0-67.9) % Lymph % (Auto) (21.8-53.1) % [place] % (Auto) (5.3-12.2) % Eos % (Auto) (0.8-7.0) Baso % (Auto) (0.1-1.2) % Neut # (Auto) (1.78-5.38) K/mm3 Lymph # (Auto) (1.32-3.57) K/mm3 [place] # (Auto) (0.30-0.82) K/mm3 Eos # (Auto) (0.04-0.54) K/mm3 Baso # (Auto) (0.01-0.08) K/mm3 Manual Slide Review Sodium (136-145) mEq/L Potassium (3.5-5.1) mEq/L Chloride (98-107) mEq/L Carbon Dioxide (21-32) mEq/L Anion Gap (5-15) BUN (7-18) mg/dL Creatinine (0.7-1.3) mg/dL Est Cr Clr Drug Dosing mL/min Estimated GFR (MDRD) (>60) mL/min BUN/Creatinine Ratio (14-18) Glucose (83-115) mg/dL POC Glucose 211 H 284 H 346 H (83-110) mg/dL Calcium (8.5-10.1) mg/dL Magnesium (1.8-2.4) mg/dl C-Reactive Protein (<1.0) mg/dL Result Diagrams: 02/28/19 05:29 02/28/19 05:29 Problem List Initiated/Reviewed/Updated: Yes Orders Last 24hrs: Active Orders 24 hr Category Date Time Status Patient Status [ADT] Routine ADT 02/28/19 07:44 Active BASIC METABOLIC PANEL,BMP [CHEM] AM Lab 03/01/19 05:11 Ordered BASIC METABOLIC PANEL,BMP [CHEM] AM Lab 03/02/19 05:11 Ordered BASIC METABOLIC PANEL,BMP [CHEM] AM Lab 03/03/19 05:11 Ordered BASIC METABOLIC PANEL,BMP [CHEM] AM Lab 03/04/19 05:11 Ordered C-REACTIVE PROTEIN [CHEM] AM Lab 03/01/19 05:11 Ordered C-REACTIVE PROTEIN [CHEM] AM Lab 03/02/19 05:11 Ordered C-REACTIVE PROTEIN [CHEM] AM Lab 03/03/19 05:11 Ordered C-REACTIVE PROTEIN [CHEM] AM Lab 03/04/19 05:11 Ordered CBC WITH AUTO DIFF [HEME] AM Lab 03/01/19 05:11 Ordered CBC WITH AUTO DIFF [HEME] AM Lab 03/02/19 05:11 Ordered CBC WITH AUTO DIFF [HEME] AM Lab 03/03/19 05:11 Ordered CBC WITH AUTO DIFF [HEME] AM Lab 03/04/19 05:11 Ordered MAGNESIUM [CHEM] AM Lab 03/01/19 05:11 Ordered MAGNESIUM [CHEM] AM Lab 03/02/19 05:11 Ordered MAGNESIUM [CHEM] AM Lab 03/03/19 05:11 Ordered MAGNESIUM [CHEM] AM Lab 03/04/19 05:11 Ordered Calcium Polycarbophil [Fibercon] Med 02/27/19 21:00 Active 1,250 mg PO BEDTIME Clopidogrel [Plavix] Med 02/28/19 15:45 Active 75 mg PO DAILY Diclofenac Sodium [Voltaren 1% Gel] Med 02/28/19 09:43 Pending 4 gm TOP QID PRN Diltiazem [Cardizem CD] Med 02/28/19 16:00 Active 180 mg PO DAILY Gabapentin [Neurontin] Med 02/28/19 21:00 Active 100 mg PO BEDTIME Insulin Glargine,Hum.Rec.Anlog [Makenzie Michelle] Med 03/01/19 09:00 Pending 44 units SQ DAILY Insulin Lispro [HumaLOG] Med 02/27/19 22:00 Active See Protocol SUBCUT QIDACANDBED Meropenem Premix [Meropenem] 50 ml Med 02/27/19 21:00 Active IV Q6H Metoprolol Succinate [Toprol XL] Med 02/28/19 15:45 Active 50 mg PO DAILY Mupirocin Oint [Bactroban Oint] Med 02/28/19 21:00 Pending DOSE gm TOP BID Pantoprazole [ProTONIX] Med 02/28/19 21:00 Active 40 mg PO Q12H Patient's Own Medication [Ptom] Med 02/28/19 09:00 Active 2 each PO DAILY Phenazopyridine [Urinary Pain Relief] Med 02/28/19 16:00 Active 95 mg PO DAILY Pregabalin [Lyrica] Med 02/28/19 21:00 Pending 25 mg PO BID Rivaroxaban [Xarelto] Med 02/28/19 09:00 Active 20 mg PO DAILY Rosuvastatin [Crestor] Med 02/28/19 16:00 Active 10 mg PO DAILY Spironolactone [Aldactone] Med 02/28/19 16:00 Active 50 mg PO DAILY Triamcinolone Acetonide Med 02/28/19 15:00 Pending 1 applic TOP TID Medication Orders Acetaminophen (Tylenol) 650 mg PO Q4H PRN PRN Reason: Pain (Mild 1-3)/fever Last Admin: 02/28/19 09:44 Dose: 650 mg Hydrocodone Bitart/Acetaminophen ([place] 325-5 Mg) 1 tab PO Q4H PRN PRN Reason: Pain (moderate 4-6) Albuterol/Ipratropium (Duoneb 3.0-0.5 Mg/3 Ml) 3 ml NEB Q4H PRN PRN Reason: Shortness Of Breath/wheezing Bisacodyl (Dulcolax) 5 mg PO DAILY PRN PRN Reason: Constipation Calcium Polycarbophil (Fibercon) 1,250 mg PO BEDTIME [facility] Last Admin: 02/27/19 21:42 Dose: 1,250 mg Clopidogrel Bisulfate (Plavix) 75 mg PO DAILY [facility] Last Admin: 02/28/19 16:09 Dose: 75 mg Dextrose/Water (Dextrose 50% In Water) 50 ml IVPUSH ASDIRECTED PRN PRN Reason: Hypoglycemia Diclofenac Sodium (Voltaren 1% Gel) 4 gm TOP QID PRN PRN Reason: Pain Diltiazem HCl (Cardizem Cd) 180 mg PO DAILY [facility] Last Admin: 02/28/19 16:09 Dose: Not Given Docusate Sodium (Colace) 100 mg PO BID PRN PRN Reason: Constipation Gabapentin (Neurontin) 100 mg PO BEDTIME [facility] Hydromorphone HCl (Dilaudid) 0.25 mg IVPUSH Q2H PRN PRN Reason: Pain (severe 7-10) Promethazine HCl 6.25 mg/ (Sodium Chloride) 50.25 mls @ 100 mls/hr IV Q6H PRN PRN Reason: Nausea/Vomiting Meropenem/Sodium Chloride (Meropenem) 50 mls @ 100 mls/hr IV Q6H [facility] Last Admin: 02/28/19 16:45 Dose: 100 mls/hr Infusion: 02/28/19 10:13 Dose: 100 mls/hr Admin: 02/28/19 09:43 Dose: 100 mls/hr Infusion: 02/28/19 03:38 Dose: 100 mls/hr Admin: 02/28/19 03:08 Dose: 100 mls/hr Infusion: 02/27/19 22:05 Dose: 100 mls/hr Admin: 02/27/19 21:35 Dose: 100 mls/hr Insulin Human Lispro (Humalog) 0 unit SUBCUT QIDACANDBED [facility]; Protocol Last Admin: 02/28/19 17:47 Dose: 4 unit Admin: 02/28/19 13:12 Dose: 3 unit Admin: 02/28/19 09:46 Dose: 2 unit Admin: 02/27/19 21:41 Dose: Not Given Lorazepam (Ativan) 0.25 mg IV Q6H PRN PRN Reason: Anxiety Lorazepam (Ativan) 1 mg PO TID PRN PRN Reason: Anxiety Last Admin: 02/28/19 09:43 Dose: 1 mg Metoprolol Succinate (Toprol Xl) 50 mg PO DAILY [facility] Last Admin: 02/28/19 16:09 Dose: Not Given Mupirocin (Bactroban Oint) gm TOP BID [facility] Non-Formulary Medication (Insulin Glargine,Hum.Rec.Anlog [Makenzie Michelle]) 44 units SQ DAILY [facility] Non-Formulary Medication (Triamcinolone Acetonide) 1 applic TOP TID [facility] Ondansetron HCl (Zofran) 4 mg IV Q6H PRN PRN Reason: Nausea/Vomiting Pantoprazole Sodium (Protonix) 40 mg PO Q12H [facility] Canagliflozin/Metformin Hcl [ Invokamet Xr 150-500 Mg Tab]Ptom 2 each PO DAILY [facility] Last Admin: 02/28/19 11:26 Dose: Not Given Phenazopyridine HCl (Urinary Pain Relief) 95 mg PO DAILY [facility] Last Admin: 02/28/19 16:09 Dose: 95 mg Polyethylene Glycol (Miralax) 17 gm PO DAILY PRN PRN Reason: Constipation Pregabalin (Lyrica) 25 mg PO BID [facility] Rivaroxaban (Xarelto) 20 mg PO DAILY [facility] Last Admin: 02/28/19 09:46 Dose: 20 mg Rosuvastatin Calcium (Crestor) 10 mg PO DAILY [facility] Last Admin: 02/28/19 16:09 Dose: 10 mg Senna/Docusate Sodium (Senna Plus) 1 tab PO BID PRN PRN Reason: Constipation Sodium Chloride (Saline Flush) 10 ml FLUSH ASDIRECTED PRN PRN Reason: Keep Vein Open Last Admin: 02/27/19 11:34 Dose: 10 ml Spironolactone (Aldactone) 50 mg PO DAILY [facility] Last Admin: 02/28/19 16:09 Dose: 50 mg Tramadol HCl (Ultram) 50 - 100 mg PO Q4HR PRN PRN Reason: Pain Assessment/Plan Comment:: Patient was treated for UTI. His urine grew proteus mirabilis sensitive to Bactrim. Unfortunately he did not improve much with outpatient antibiotic. He is allergic to penicillins and cephalosporins. The organism is resistant to Macrobid so we will use Meropenem. Patient labs were fairly unremarkable. The patient was seen and examined in concert with the medical student. The admission assessment and plans were discussed and agreed upon with me. Any changes or recommendations will be based on the patient's course.
[2019-02-27] MEDS ORDERED: Acetaminophen/HYDROcodone 325-5 MG Tab PO PRN (18:10)
[2019-02-27] MEDS ORDERED: Albuterol/Ipratropium 3.0-0.5 MG/3 ML Neb Soln NEB PRN (18:10)
[2019-02-27] MEDS ORDERED: Promethazine 6.25 MG in Sodium Chloride 0.9% 50 ML IV PRN (18:10)
[2019-02-27] MEDS ORDERED: Polyethylene Glycol 3350 Powder 17 GM Packet PO PRN (18:10)
[2019-02-27] MEDS ORDERED: Docusate Sodium 100 MG Cap PO PRN (18:10)
[2019-02-27] MEDS ORDERED: Acetaminophen 325 MG Tab PO PRN (18:10)
[2019-02-27] MEDS ORDERED: Bisacodyl 5 MG Tab PO PRN (18:10)
[2019-02-27] MEDS ORDERED: LORazepam 2 MG/ML SDV IV PRN (18:10)
[2019-02-27] MEDS ORDERED: Ondansetron 4 MG/2 ML SDV IV PRN (18:10)
[2019-02-27] MEDS ORDERED: HYDROmorphone 0.5 MG/0.5 ML Syringe IVPUSH PRN (18:10)
[2019-02-27] MEDS ORDERED: 50% Dextrose in Water 50 ML Syringe IVPUSH PRN (18:19)
[2019-02-27] MEDS ORDERED: Meropenem 1 GM SDV IVPUSH SCH (18:30)
[2019-02-27] MEDS ORDERED: methylPREDNISolone Sodium Succinate 40 MG/1 ML SDV IVPUSH ONE (19:13)
[2019-02-27] MEDS ORDERED: diphenhydrAMINE 50 MG/ML SDV IVPUSH ONE (19:13)
[2019-02-27] MEDS ORDERED: Meropenem 1 GM in Sodium Chloride 0.9% 100 ML IV SCH (19:30)
[2019-02-27] MEDS: MEROPENEM IV SCH (21:35)
[2019-02-27] MEDS: Insulin Lispro 100 Units/ML 3 ML Vial SUBCUT SCH (21:41)
[2019-02-27] MEDS: Calcium Polycarbophil 625 MG Tab PO SCH (21:42)
[2019-02-27] MEDS: Pantoprazole 40 MG Vial IV SCH (21:45)
[2019-02-28] MEDS: MEROPENEM IV SCH ×4 (03:08→22:26)
[2019-02-28] MEDS: LORazepam 1 MG Tab PO PRN ×2 (09:43→22:38)
[2019-02-28] MEDS ORDERED: Diclofenac Sodium 1% Gel 100 GM Tube TOP PRN (09:43)
[2019-02-28] MEDS: Pantoprazole 40 MG Vial IV SCH (09:43)
[2019-02-28] MEDS: Rivaroxaban 10 MG Tab PO SCH (09:46)
[2019-02-28] MEDS: Insulin Lispro 100 Units/ML 3 ML Vial SUBCUT SCH ×4 (09:46→22:27)
[2019-02-28] MEDS: CANAGLIFLOZIN PO SCH (11:26)
[2019-02-28] MEDS: METFORMIN HCL PO SCH (11:26)
--- NOTE | 2019-02-28 12:56 | PCM.PN ---
<Cooper Florez - Last Filed: 02/28/19 12:50> - General Info Date of Service: 02/28/19 Admission Dx/Problem (Free Text): Admission Diagnosis/Problem Admission Diagnosis/Problem UTI, Urinary tract infectious disease Subjective Update: patient is looking and feeling much better today. Much less fatigued than upon admission. Pt states he is no longer having dysuria, his urine is no longer looking cloudy or smelling foul. He has no other complaints at this time. Functional Status: Reports: Pain Controlled - Review of Systems General: Reports: No Symptoms HEENT: Reports: No Symptoms Pulmonary: Reports: No Symptoms Cardiovascular: Reports: No Symptoms Gastrointestinal: Reports: No Symptoms Genitourinary: Reports: No Symptoms Musculoskeletal: Reports: No Symptoms Skin: Reports: No Symptoms Neurological: Reports: No Symptoms Psychiatric: Reports: No Symptoms - Patient Data Vitals - Most Recent: Last Vital Signs Temp 97.3 F 02/28/19 12:16 Pulse 93 02/28/19 12:16 Resp 20 02/28/19 12:16 BP 99/70 02/28/19 12:16 Pulse Ox 97 02/28/19 12:16 Weight - Most Recent: 110.767 kg I&O - Last 24 Hours: Intake & Output 02/27/19 02/28/19 02/28/19 22:59 06:59 14:59 Intake Total 60 300 300 Output Total 150 Balance 60 150 300 Lab Results Last 24 Hours: Laboratory Results - last 24 hr 02/27/19 02/27/19 02/27/19 Range/Units 12:21 18:13 21:41 WBC (4.23-9.07) K/mm3 RBC (4.63-6.08) M/mm3 Hgb (13.7-17.5) gm/L Hct (40.1-51.0) % MCV (79.0-92.2) fl MCH (25.7-32.2) pg MCHC (32.2-35.5) g/dl RDW Std Deviation (35.1-43.9) fL Plt Count (163-337) K/mm3 MPV (9.4-12.3) fl Neut % (Auto) (34.0-67.9) % Lymph % (Auto) (21.8-53.1) % Armstrong % (Auto) (5.3-12.2) % Eos % (Auto) (0.8-7.0) Baso % (Auto) (0.1-1.2) % Neut # (Auto) (1.78-5.38) K/mm3 Lymph # (Auto) (1.32-3.57) K/mm3 Armstrong # (Auto) (0.30-0.82) K/mm3 Eos # (Auto) (0.04-0.54) K/mm3 Baso # (Auto) (0.01-0.08) K/mm3 Manual Slide Review Sodium (136-145) mEq/L Potassium (3.5-5.1) mEq/L Chloride (98-107) mEq/L Carbon Dioxide (21-32) mEq/L Anion Gap (5-15) BUN (7-18) mg/dL Creatinine (0.7-1.3) mg/dL Est Cr Clr Drug Dosing mL/min Estimated GFR (MDRD) (>60) mL/min BUN/Creatinine Ratio (14-18) Glucose (83-115) mg/dL POC Glucose 110 133 H (83-110) mg/dL Calcium (8.5-10.1) mg/dL Magnesium (1.8-2.4) mg/dl C-Reactive Protein (<1.0) mg/dL Urine Color Yellow (Yellow) Urine Appearance Clear (Clear) Urine pH 6.0 (5.0-8.0) Ur Specific [place] 1.020 (1.005-1.030) Urine Protein Negative (Negative) Urine Glucose (UA) Negative (Negative) Urine Ketones Negative (Negative) Urine Occult Blood Trace-lysed H (Negative) Urine Nitrite Positive H (Negative) Urine Bilirubin Negative (Negative) Urine Urobilinogen 1.0 (0.2-1.0) Ur Leukocyte Esterase Trace H (Negative) Urine RBC 5-10 H (0-5) /hpf Urine WBC 10-20 H (0-5) /hpf Ur Squamous Epith Cells 0-5 (0-5) /hpf Urine Bacteria Few (FEW) /hpf Urine Mucus Few (FEW) /hpf 02/28/19 02/28/19 02/28/19 Range/Units 05:29 05:29 06:16 WBC 4.41 (4.23-9.07) K/mm3 RBC 4.31 L (4.63-6.08) M/mm3 Hgb 14.0 (13.7-17.5) gm/L Hct 41.8 (40.1-51.0) % MCV 97.0 H (79.0-92.2) fl MCH 32.5 H (25.7-32.2) pg MCHC 33.5 (32.2-35.5) g/dl RDW Std Deviation 45.4 H (35.1-43.9) fL Plt Count 167 (163-337) K/mm3 MPV 10.2 (9.4-12.3) fl Neut % (Auto) 91.5 H (34.0-67.9) % Lymph % (Auto) 6.3 L (21.8-53.1) % Armstrong % (Auto) 2.0 L (5.3-12.2) % Eos % (Auto) 0 L (0.8-7.0) Baso % (Auto) 0.0 L (0.1-1.2) % Neut # (Auto) 4.03 (1.78-5.38) K/mm3 Lymph # (Auto) 0.28 L (1.32-3.57) K/mm3 Armstrong # (Auto) 0.09 L (0.30-0.82) K/mm3 Eos # (Auto) 0.00 L (0.04-0.54) K/mm3 Baso # (Auto) 0.00 L (0.01-0.08) K/mm3 Manual Slide Review Abnormal smear Sodium 132 L (136-145) mEq/L Potassium 4.2 (3.5-5.1) mEq/L Chloride 100 (98-107) mEq/L Carbon Dioxide 19 L (21-32) mEq/L Anion Gap 17.2 H (5-15) BUN 17 (7-18) mg/dL Creatinine 1.0 (0.7-1.3) mg/dL Est Cr Clr Drug Dosing 57.95 mL/min Estimated GFR (MDRD) > 60 (>60) mL/min BUN/Creatinine Ratio 17.0 (14-18) Glucose 224 H (83-115) mg/dL POC Glucose 211 H (83-110) mg/dL Calcium 8.2 L (8.5-10.1) mg/dL Magnesium 1.8 (1.8-2.4) mg/dl C-Reactive Protein 8.2 H* (<1.0) mg/dL Urine Color (Yellow) Urine Appearance (Clear) Urine pH (5.0-8.0) Ur Specific [place] (1.005-1.030) Urine Protein (Negative) Urine Glucose (UA) (Negative) Urine Ketones (Negative) Urine Occult Blood (Negative) Urine Nitrite (Negative) Urine Bilirubin (Negative) Urine Urobilinogen (0.2-1.0) Ur Leukocyte Esterase (Negative) Urine RBC (0-5) /hpf Urine WBC (0-5) /hpf Ur Squamous Epith Cells (0-5) /hpf Urine Bacteria (FEW) /hpf Urine Mucus (FEW) /hpf 02/28/19 Range/Units 11:38 WBC (4.23-9.07) K/mm3 RBC (4.63-6.08) M/mm3 Hgb (13.7-17.5) gm/L Hct (40.1-51.0) % MCV (79.0-92.2) fl MCH (25.7-32.2) pg MCHC (32.2-35.5) g/dl RDW Std Deviation (35.1-43.9) fL Plt Count (163-337) K/mm3 MPV (9.4-12.3) fl Neut % (Auto) (34.0-67.9) % Lymph % (Auto) (21.8-53.1) % Armstrong % (Auto) (5.3-12.2) % Eos % (Auto) (0.8-7.0) Baso % (Auto) (0.1-1.2) % Neut # (Auto) (1.78-5.38) K/mm3 Lymph # (Auto) (1.32-3.57) K/mm3 Armstrong # (Auto) (0.30-0.82) K/mm3 Eos # (Auto) (0.04-0.54) K/mm3 Baso # (Auto) (0.01-0.08) K/mm3 Manual Slide Review Sodium (136-145) mEq/L Potassium (3.5-5.1) mEq/L Chloride (98-107) mEq/L Carbon Dioxide (21-32) mEq/L Anion Gap (5-15) BUN (7-18) mg/dL Creatinine (0.7-1.3) mg/dL Est Cr Clr Drug Dosing mL/min Estimated GFR (MDRD) (>60) mL/min BUN/Creatinine Ratio (14-18) Glucose (83-115) mg/dL POC Glucose 284 H (83-110) mg/dL Calcium (8.5-10.1) mg/dL Magnesium (1.8-2.4) mg/dl C-Reactive Protein (<1.0) mg/dL Urine Color (Yellow) Urine Appearance (Clear) Urine pH (5.0-8.0) Ur Specific [place] (1.005-1.030) Urine Protein (Negative) Urine Glucose (UA) (Negative) Urine Ketones (Negative) Urine Occult Blood (Negative) Urine Nitrite (Negative) Urine Bilirubin (Negative) Urine Urobilinogen (0.2-1.0) Ur Leukocyte Esterase (Negative) Urine RBC (0-5) /hpf Urine WBC (0-5) /hpf Ur Squamous Epith Cells (0-5) /hpf Urine Bacteria (FEW) /hpf Urine Mucus (FEW) /hpf Med Orders - Current: Current Medications Acetaminophen (Tylenol) 650 mg PO Q4H PRN PRN Reason: Pain (Mild 1-3)/fever Last Admin: 02/28/19 09:44 Dose: 650 mg Hydrocodone Bitart/Acetaminophen ([place] 325-5 Mg) 1 tab PO Q4H PRN PRN Reason: Pain (moderate 4-6) Albuterol/Ipratropium (Duoneb 3.0-0.5 Mg/3 Ml) 3 ml NEB Q4H PRN PRN Reason: Shortness Of Breath/wheezing Bisacodyl (Dulcolax) 5 mg PO DAILY PRN PRN Reason: Constipation Calcium Polycarbophil (Fibercon) 1,250 mg PO BEDTIME [facility] Last Admin: 02/27/19 21:42 Dose: 1,250 mg Clopidogrel Bisulfate (Plavix) 75 mg PO DAILY [facility] Dextrose/Water (Dextrose 50% In Water) 50 ml IVPUSH ASDIRECTED PRN PRN Reason: Hypoglycemia Diclofenac Sodium (Voltaren 1% Gel) 4 gm TOP QID PRN PRN Reason: Pain Docusate Sodium (Colace) 100 mg PO BID PRN PRN Reason: Constipation Gabapentin (Neurontin) mg PO BEDTIME [facility] Hydromorphone HCl (Dilaudid) 0.25 mg IVPUSH Q2H PRN PRN Reason: Pain (severe 7-10) Promethazine HCl 6.25 mg/ (Sodium Chloride) 50.25 mls @ 100 mls/hr IV Q6H PRN PRN Reason: Nausea/Vomiting Meropenem/Sodium Chloride (Meropenem) 50 mls @ 100 mls/hr IV Q6H [facility] Last Admin: 02/28/19 09:43 Dose: 100 mls/hr Insulin Human Lispro (Humalog) 0 unit SUBCUT QIDACANDBED [facility]; Protocol Last Admin: 02/28/19 09:46 Dose: 2 unit Lorazepam (Ativan) 0.25 mg IV Q6H PRN PRN Reason: Anxiety Lorazepam (Ativan) 1 mg PO TID PRN PRN Reason: Anxiety Last Admin: 02/28/19 09:43 Dose: 1 mg Metoprolol Succinate (Toprol Xl) 50 mg PO DAILY [facility] Mupirocin (Bactroban Oint) gm TOP BID [facility] Non-Formulary Medication (Diltiazem Hcl [Diltiazem 24hr Er]) 180 mg PO DAILY [facility] Non-Formulary Medication (Insulin Glargine,Hum.Rec.Anlog [Toujeo Solostar]) 44 units SQ DAILY [facility] Non-Formulary Medication (Triamcinolone Acetonide) 1 applic TOP TID [facility] Ondansetron HCl (Zofran) 4 mg IV Q6H PRN PRN Reason: Nausea/Vomiting Pantoprazole Sodium (Protonix) 40 mg PO Q12H [facility] Canagliflozin/Metformin Hcl [ Invokamet Xr 150-500 Mg Tab]Ptom 2 each PO DAILY [facility] Last Admin: 02/28/19 11:26 Dose: Not Given Phenazopyridine HCl (Urinary Pain Relief) 95 mg PO DAILY [facility] Polyethylene Glycol (Miralax) 17 gm PO DAILY PRN PRN Reason: Constipation Pregabalin (Lyrica) 25 mg PO BID [facility] Rivaroxaban (Xarelto) 20 mg PO DAILY [facility] Last Admin: 02/28/19 09:46 Dose: 20 mg Rosuvastatin Calcium (Crestor) 10 mg PO DAILY [facility] Senna/Docusate Sodium (Senna Plus) 1 tab PO BID PRN PRN Reason: Constipation Sodium Chloride (Saline Flush) 10 ml FLUSH ASDIRECTED PRN PRN Reason: Keep Vein Open Last Admin: 02/27/19 11:34 Dose: 10 ml Spironolactone (Aldactone) 50 mg PO DAILY [facility] Tramadol HCl (Ultram) 50 - 100 mg PO Q4HR PRN PRN Reason: Pain Discontinued Medications Diphenhydramine HCl (Benadryl) 25 mg IVPUSH ONETIME ONE Stop: 02/27/19 19:14 Last Admin: 02/27/19 20:22 Dose: 25 mg Sodium Chloride (Normal Saline) 1,000 mls @ 150 mls/hr IV ASDIRECTED [facility] Last Admin: 02/27/19 19:13 Dose: 150 mls/hr Meropenem 1 gm/ Sodium (Chloride) 100 mls @ 200 mls/hr IV Q8H [facility] Last Admin: 02/27/19 22:48 Dose: Not Given Meropenem (Merrem) 1 gm IVPUSH Q8H [facility] Last Admin: 02/27/19 20:29 Dose: Not Given Methylprednisolone Sodium Succinate (Solu-Medrol) 40 mg IVPUSH ONETIME ONE Stop: 02/27/19 19:14 Last Admin: 02/27/19 20:22 Dose: 40 mg Pantoprazole Sodium (Protonix Iv) 40 mg IV Q12HR [facility] Last Admin: 02/28/19 09:43 Dose: 40 mg - Exam General: Alert, Oriented, Cooperative, No Acute Distress HEENT: Pupils Equal, Pupils Reactive, EOMI, Mucous Membr. Moist/[place]. No: Scleral Icterus Neck: Supple, Trachea Midline, No JVD. No: Lymphadenopathy Lungs: Clear to Auscultation, Normal Respiratory Effort. No: Crackles, Rales, Wheezing Cardiovascular: Regular Rate, Regular Rhythm, No Murmurs. No: Gallops, Rubs GI/Abdominal Exam: Normal Bowel Sounds, Soft, Non-Tender, No Organomegaly, No Distention (Male) Exam: Deferred Back Exam: Normal Inspection, Full Range of Motion Extremities: Normal Inspection, Non-Tender, No Pedal Edema, Mottled. No: Joint Swelling, Increased Warmth Skin: Warm, Dry, Intact Neurological: No New Focal Deficit, Normal Speech, Normal Tone, Cranial Nerves Intact Psy/Mental Status: Alert, Normal Affect, Normal Mood - Problem List & Annotations (1) Urinary tract infection SNOMED Code(s): 86814761 Code(s): N39.0 - URINARY TRACT INFECTION, SITE NOT SPECIFIED Status: Acute Current Visit: Yes Qualifiers: Urinary tract infection type: site unspecified Hematuria presence: with hematuria Qualified Code(s): N39.0 - Urinary tract infection, site not specified; R31.9 - Hematuria, unspecified (2) Type 2 diabetes mellitus, with long-term current use of insulin SNOMED Code(s): 876248079 Code(s): E11.9 - TYPE 2 DIABETES MELLITUS WITHOUT COMPLICATIONS; Z79.4 - RESIDENTIAL (CURRENT) USE OF INSULIN Status: Chronic Priority: High Current Visit: No Qualifiers: Diabetes mellitus complication status: with skin complications Diabetes mellitus complication detail: with other skin ulcer Qualified Code(s): E11.622 - Type 2 diabetes mellitus with other skin ulcer; Z79.4 - longterm ( current) use of insulin; Z79.4 - longterm (current) use of insulin; Z79.4 - longterm (current) use of insulin; Z79.4 - 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 project manager (current) use of insulin - Plan Plan:: Assessment: Acute: Urinary tract infection * laboratory values confirm * 3 day history of dysuria * Foul-smelling, cloudy urine-->improved today * Positive for proteus mirabilis per previous UA done 02/25 * Positive nitrites, leukocyte esterase * WBC in urine Type II DM * initial glucose in ER 129 * Monitor blood glucose Diabetic Neuropathy * Bilateral pain to palpation * Unsteady on feet * Uses 2 canes for ambulation * Will need assistance Morbid obesity * 244 lbs * Consult with dietary Chronic: COPD, CHF, Afib, Type II DM, prostate cancer Plan: Admit to med/surg Antibiotics for UTI, continue bactrim Monitor blood glucose Azo as needed Plenty of fluids LOS 1-2 days Code status: Prognosis guarded-good <Slick Pinzon - Last Filed: 02/28/19 21:21> - Review of Systems Systems Review Comment:: He rested well overnight and feels much better this morning. He has no acute issues. - Patient Data Vitals - Most Recent: Last Vital Signs Temp 36.4 C 02/28/19 15:19 Pulse 54 L 02/28/19 15:19 Resp 20 02/28/19 15:19 BP 116/61 02/28/19 15:19 Pulse Ox 99 02/28/19 15:19 I&O - Last 24 Hours: Intake & Output 02/28/19 02/28/19 02/28/19 06:59 14:59 22:59 Intake Total 300 300 Output Total 150 Balance 150 300 Lab Results Last 24 Hours: Laboratory Results - last 24 hr 02/27/19 02/27/19 02/28/19 Range/Units 18:13 21:41 05:29 WBC 4.41 (4.23-9.07) K/mm3 RBC 4.31 L (4.63-6.08) M/mm3 Hgb 14.0 (13.7-17.5) gm/L Hct 41.8 (40.1-51.0) % MCV 97.0 H (79.0-92.2) fl MCH 32.5 H (25.7-32.2) pg MCHC 33.5 (32.2-35.5) g/dl RDW Std Deviation 45.4 H (35.1-43.9) fL Plt Count 167 (163-337) K/mm3 MPV 10.2 (9.4-12.3) fl Neut % (Auto) 91.5 H (34.0-67.9) % Lymph % (Auto) 6.3 L (21.8-53.1) % Armstrong % (Auto) 2.0 L (5.3-12.2) % Eos % (Auto) 0 L (0.8-7.0) Baso % (Auto) 0.0 L (0.1-1.2) % Neut # (Auto) 4.03 (1.78-5.38) K/mm3 Lymph # (Auto) 0.28 L (1.32-3.57) K/mm3 Armstrong # (Auto) 0.09 L (0.30-0.82) K/mm3 Eos # (Auto) 0.00 L (0.04-0.54) K/mm3 Baso # (Auto) 0.00 L (0.01-0.08) K/mm3 Manual Slide Review Abnormal smear Sodium (136-145) mEq/L Potassium (3.5-5.1) mEq/L Chloride (98-107) mEq/L Carbon Dioxide (21-32) mEq/L Anion Gap (5-15) BUN (7-18) mg/dL Creatinine (0.7-1.3) mg/dL Est Cr Clr Drug Dosing mL/min Estimated GFR (MDRD) (>60) mL/min BUN/Creatinine Ratio (14-18) Glucose (83-115) mg/dL POC Glucose 110 133 H (83-110) mg/dL Calcium (8.5-10.1) mg/dL Magnesium (1.8-2.4) mg/dl C-Reactive Protein (<1.0) mg/dL 02/28/19 02/28/19 02/28/19 Range/Units 05:29 06:16 11:38 WBC (4.23-9.07) K/mm3 RBC (4.63-6.08) M/mm3 Hgb (13.7-17.5) gm/L Hct (40.1-51.0) % MCV (79.0-92.2) fl MCH (25.7-32.2) pg MCHC (32.2-35.5) g/dl RDW Std Deviation (35.1-43.9) fL Plt Count (163-337) K/mm3 MPV (9.4-12.3) fl Neut % (Auto) (34.0-67.9) % Lymph % (Auto) (21.8-53.1) % Armstrong % (Auto) (5.3-12.2) % Eos % (Auto) (0.8-7.0) Baso % (Auto) (0.1-1.2) % Neut # (Auto) (1.78-5.38) K/mm3 Lymph # (Auto) (1.32-3.57) K/mm3 Armstrong # (Auto) (0.30-0.82) K/mm3 Eos # (Auto) (0.04-0.54) K/mm3 Baso # (Auto) (0.01-0.08) K/mm3 Manual Slide Review Sodium 132 L (136-145) mEq/L Potassium 4.2 (3.5-5.1) mEq/L Chloride 100 (98-107) mEq/L Carbon Dioxide 19 L (21-32) mEq/L Anion Gap 17.2 H (5-15) BUN 17 (7-18) mg/dL Creatinine 1.0 (0.7-1.3) mg/dL Est Cr Clr Drug Dosing 57.95 mL/min Estimated GFR (MDRD) > 60 (>60) mL/min BUN/Creatinine Ratio 17.0 (14-18) Glucose 224 H (83-115) mg/dL POC Glucose 211 H 284 H (83-110) mg/dL Calcium 8.2 L (8.5-10.1) mg/dL Magnesium 1.8 (1.8-2.4) mg/dl C-Reactive Protein 8.2 H* (<1.0) mg/dL Med Orders - Current: Current Medications Acetaminophen (Tylenol) 650 mg PO Q4H PRN PRN Reason: Pain (Mild 1-3)/fever Last Admin: 02/28/19 09:44 Dose: 650 mg Hydrocodone Bitart/Acetaminophen ([place] 325-5 Mg) 1 tab PO Q4H PRN PRN Reason: Pain (moderate 4-6) Albuterol/Ipratropium (Duoneb 3.0-0.5 Mg/3 Ml) 3 ml NEB Q4H PRN PRN Reason: Shortness Of Breath/wheezing Bisacodyl (Dulcolax) 5 mg PO DAILY PRN PRN Reason: Constipation Calcium Polycarbophil (Fibercon) 1,250 mg PO BEDTIME [facility] Last Admin: 02/27/19 21:42 Dose: 1,250 mg Clopidogrel Bisulfate (Plavix) 75 mg PO DAILY [facility] Last Admin: 02/28/19 16:09 Dose: 75 mg Dextrose/Water (Dextrose 50% In Water) 50 ml IVPUSH ASDIRECTED PRN PRN Reason: Hypoglycemia Diclofenac Sodium (Voltaren 1% Gel) 4 gm TOP QID PRN PRN Reason: Pain Diltiazem HCl (Cardizem Cd) 180 mg PO DAILY [facility] Last Admin: 02/28/19 16:09 Dose: Not Given Docusate Sodium (Colace) 100 mg PO BID PRN PRN Reason: Constipation Gabapentin (Neurontin) 100 mg PO BEDTIME [facility] Hydromorphone HCl (Dilaudid) 0.25 mg IVPUSH Q2H PRN PRN Reason: Pain (severe 7-10) Promethazine HCl 6.25 mg/ (Sodium Chloride) 50.25 mls @ 100 mls/hr IV Q6H PRN PRN Reason: Nausea/Vomiting Meropenem/Sodium Chloride (Meropenem) 50 mls @ 100 mls/hr IV Q6H [facility] Last Admin: 02/28/19 09:43 Dose: 100 mls/hr Insulin Human Lispro (Humalog) 0 unit SUBCUT QIDACANDBED [facility]; Protocol Last Admin: 02/28/19 13:12 Dose: 3 unit Lorazepam (Ativan) 0.25 mg IV Q6H PRN PRN Reason: Anxiety Lorazepam (Ativan) 1 mg PO TID PRN PRN Reason: Anxiety Last Admin: 02/28/19 09:43 Dose: 1 mg Metoprolol Succinate (Toprol Xl) 50 mg PO DAILY [facility] Last Admin: 02/28/19 16:09 Dose: Not Given Mupirocin (Bactroban Oint) gm TOP BID [facility] Non-Formulary Medication (Insulin Glargine,Hum.Rec.Anlog [Tonieves Michelle]) 44 units SQ DAILY [facility] Non-Formulary Medication (Triamcinolone Acetonide) 1 applic TOP TID [facility] Ondansetron HCl (Zofran) 4 mg IV Q6H PRN PRN Reason: Nausea/Vomiting Pantoprazole Sodium (Protonix) 40 mg PO Q12H [facility] Canagliflozin/Metformin Hcl [ Invokamet Xr 150-500 Mg Tab]Ptom 2 each PO DAILY [facility] Last Admin: 02/28/19 11:26 Dose: Not Given Phenazopyridine HCl (Urinary Pain Relief) 95 mg PO DAILY [facility] Last Admin: 02/28/19 16:09 Dose: 95 mg Polyethylene Glycol (Miralax) 17 gm PO DAILY PRN PRN Reason: Constipation Pregabalin (Lyrica) 25 mg PO BID [facility] Rivaroxaban (Xarelto) 20 mg PO DAILY [facility] Last Admin: 02/28/19 09:46 Dose: 20 mg Rosuvastatin Calcium (Crestor) 10 mg PO DAILY [facility] Last Admin: 02/28/19 16:09 Dose: 10 mg Senna/Docusate Sodium (Senna Plus) 1 tab PO BID PRN PRN Reason: Constipation Sodium Chloride (Saline Flush) 10 ml FLUSH ASDIRECTED PRN PRN Reason: Keep Vein Open Last Admin: 02/27/19 11:34 Dose: 10 ml Spironolactone (Aldactone) 50 mg PO DAILY [facility] Last Admin: 02/28/19 16:09 Dose: 50 mg Tramadol HCl (Ultram) 50 - 100 mg PO Q4HR PRN PRN Reason: Pain Discontinued Medications Diphenhydramine HCl (Benadryl) 25 mg IVPUSH ONETIME ONE Stop: 02/27/19 19:14 Last Admin: 02/27/19 20:22 Dose: 25 mg Sodium Chloride (Normal Saline) 1,000 mls @ 150 mls/hr IV ASDIRECTED [facility] Last Admin: 02/27/19 19:13 Dose: 150 mls/hr Meropenem 1 gm/ Sodium (Chloride) 100 mls @ 200 mls/hr IV Q8H [facility] Last Admin: 02/27/19 22:48 Dose: Not Given Insulin Glargine (Lantus) 35 unit SUBCUT ONETIME ONE Stop: 02/28/19 16:01 Last Admin: 02/28/19 16:09 Dose: 35 units Meropenem (Merrem) 1 gm IVPUSH Q8H [facility] Last Admin: 02/27/19 20:29 Dose: Not Given Methylprednisolone Sodium Succinate (Solu-Medrol) 40 mg IVPUSH ONETIME ONE Stop: 02/27/19 19:14 Last Admin: 02/27/19 20:22 Dose: 40 mg Pantoprazole Sodium (Protonix Iv) 40 mg IV Q12HR [facility] Last Admin: 02/28/19 09:43 Dose: 40 mg - Problem List Review Problem List Initiated/Reviewed/Updated: Yes - My Orders Last 24 Hours: My Active Orders 02/27/19 18:10 Height and Weight [RC] 04 Oxygen Therapy [RC] PRN Up With Assistance [RC] BID Up ad Verena [RC] BID VTE/DVT Education [RC] DAILY Vital Signs [RC] Q4HR Consult to Case Management/Senior Ui Developer [CONS] Routine OT Evaluation and Treatment [CONS] Routine PT Evaluation and Treatment [CONS] Routine Acetaminophen [Tylenol] 650 mg PO Q4H PRN Acetaminophen/HYDROcodone [[place] 325-5 MG] 1 tab PO Q4H PRN Albuterol/Ipratropium [DuoNeb 3.0-0.5 MG/3 ML] 3 ml NEB Q4H PRN Bisacodyl [Dulcolax] 5 mg PO DAILY PRN Docusate Sodium [Colace] 100 mg PO BID PRN Docusate Sodium/Sennosides [Senna Plus] 1 tab PO BID PRN HYDROmorphone [Dilaudid] 0.25 mg IVPUSH Q2H PRN LORazepam [Ativan] 0.25 mg IV Q6H PRN Ondansetron [Zofran] 4 mg IV Q6H PRN Polyethylene Glycol 3350 [MiraLAX] 17 gm PO DAILY PRN Promethazine [Phenergan] 6.25 mg Sodium Chloride 0.9% [Normal Saline] 50 ml IV Q6H Resuscitation Status Routine 02/27/19 18:11 Cardiac Monitoring [RC] CONTINUOUS Intake and Output [RC] 04,16 Sequential Compression Device [OM.PC] Per Unit Routine 02/27/19 18:12 Antiembolic Devices [RC] BID 02/27/19 18:13 RT Aerosol Therapy [RC] ASDIRECTED 02/27/19 18:15 LORazepam [Ativan] 1 mg PO TID PRN traMADol [Ultram] 50 - 100 mg PO Q4HR PRN 02/27/19 18:19 Blood Glucose Check, Bedside [RC] QIDACANDBED Dextrose 50% in Water 50 ml IVPUSH ASDIRECTED PRN 02/27/19 21:00 Calcium Polycarbophil [Fibercon] 1,250 mg PO BEDTIME Meropenem Premix [Meropenem] 50 ml IV Q6H 02/27/19 22:00 Insulin Lispro [HumaLOG] See Protocol SUBCUT QIDACANDBED 02/27/19 Dinner Consistent Carbohydrate Diet [DIET] Heart Healthy Diet [DIET] 02/28/19 07:44 Patient Status [ADT] Routine 02/28/19 09:00 Patient's Own Medication [Ptom] 2 each PO DAILY Rivaroxaban [Xarelto] 20 mg PO DAILY 02/28/19 09:43 Diclofenac Sodium [Voltaren 1% Gel] 4 gm TOP QID PRN 02/28/19 15:00 Triamcinolone Acetonide 1 applic TOP TID 02/28/19 15:45 Clopidogrel [Plavix] 75 mg PO DAILY Metoprolol Succinate [Toprol XL] 50 mg PO DAILY 02/28/19 16:00 Diltiazem [Cardizem CD] 180 mg PO DAILY Phenazopyridine [Urinary Pain Relief] 95 mg PO DAILY Rosuvastatin [Crestor] 10 mg PO DAILY Spironolactone [Aldactone] 50 mg PO DAILY 02/28/19 21:00 Gabapentin [Neurontin] 100 mg PO BEDTIME Mupirocin Oint [Bactroban Oint] DOSE gm TOP BID Pantoprazole [ProTONIX] 40 mg PO Q12H Pregabalin [Lyrica] 25 mg PO BID 03/01/19 05:11 BASIC METABOLIC PANEL,BMP [CHEM] AM C-REACTIVE PROTEIN [CHEM] AM CBC WITH AUTO DIFF [HEME] AM MAGNESIUM [CHEM] AM 03/01/19 09:00 Insulin Glargine,Hum.Rec.Anlog [Makenzie Michelle] 44 units SQ DAILY 03/02/19 05:11 BASIC METABOLIC PANEL,BMP [CHEM] AM C-REACTIVE PROTEIN [CHEM] AM CBC WITH AUTO DIFF [HEME] AM MAGNESIUM [CHEM] AM 03/03/19 05:11 BASIC METABOLIC PANEL,BMP [CHEM] AM C-REACTIVE PROTEIN [CHEM] AM CBC WITH AUTO DIFF [HEME] AM MAGNESIUM [CHEM] AM 03/04/19 05:11 BASIC METABOLIC PANEL,BMP [CHEM] AM C-REACTIVE PROTEIN [CHEM] AM CBC WITH AUTO DIFF [HEME] AM MAGNESIUM [CHEM] AM - Assessment Assessment:: Patient was to be observation status from the time he arrived from the ED. - Plan Plan:: Assessment: Acute: Urinary Tract Infection 2/2 Proteus Mirabilis * 3 day history of dysuria * Foul-smelling, cloudy urine--> improved today * UA done 02/25 * Positive nitrites, leukocyte esterase * Did not improve with outpatient treatment * Responding to IV Meropenem 50 mg Q6H (day 2) Type II DM * BS is well controlled * Accu-check with ISS * Monitor blood glucose Diabetic Neuropathy * Bilateral pain to palpation * Unsteady on feet * Uses 2 canes for ambulation * Will need assistance Morbid Obesity * 244 lbs * Consult with dietary for weight management Chronic: Impaired Hearing, HTN, HLD, CAD S/p Stent Placement x1, COPD, CHF, Atrial Fibrillation, Type II DM, Prostate Cancer, Umbilical Hernia, OA/DJD, and Psoriasis Plan: He is clinically stable Continue IV antibiotic Routine AM Labs Monitor blood glucose LOS anticipate 2-3 days of IV antibiotic treatment Code status: full Prognosis good Additional orders as above Update patient regarding his clinical progress, treatment and possible discharge care plan. The patient was seen and examined in concert with the medical student. The review of system and physical examinations conducted by the student were discussed and agreed upon with me.
[2019-02-28] MEDS ORDERED: Insulin Glarg,Human.Rec.Analog 100 UNIT/ML ML SUBCUT ONE (16:00)
[2019-02-28] MEDS: Diltiazem 180 MG Cap.CD PO SCH (16:09)
[2019-02-28] MEDS: Phenazopyridine 95 MG Tab PO SCH (16:09)
[2019-02-28] MEDS: Spironolactone 25 MG Tab PO SCH (16:09)
[2019-02-28] MEDS: Rosuvastatin 10 MG Tab PO SCH (16:09)
[2019-02-28] MEDS: Clopidogrel 75 MG Tab PO SCH (16:09)
[2019-02-28] MEDS: Metoprolol Succinate 50 MG Tab.ER PO SCH (16:09)
--- NOTE | 2019-02-28 21:27 | PCM.SN ---
- Free Text/Narrative Note: I received notification from the [facility] nurse regarding medical necessity inpatient to outpatient observation services. [facility] tribal council member Dr. Walsh and I, the physician responsible for the patient's care, have reviewed the patient's medical case. We concur with the decision for outpatient observation status services as the appropriate level of care from admission.
[2019-02-28] MEDS: Calcium Polycarbophil 625 MG Tab PO SCH (22:26)
[2019-02-28] MEDS: Gabapentin 100 MG Cap PO SCH (22:26)
[2019-02-28] MEDS: Pantoprazole 40 MG Tab.CR PO SCH (22:27)
[2019-02-28] MEDS: traMADol 50 MG Tab PO PRN (22:36)
[2019-03-01] MEDS: MEROPENEM IV SCH ×4 (04:20→22:46)
[2019-03-01] MEDS: Insulin Lispro 100 Units/ML 3 ML Vial SUBCUT SCH ×4 (08:09→22:48)
[2019-03-01] MEDS: Rivaroxaban 10 MG Tab PO SCH (08:10)
[2019-03-01] MEDS: Spironolactone 25 MG Tab PO SCH (08:10)
[2019-03-01] MEDS: LORazepam 1 MG Tab PO PRN ×2 (08:11→22:47)
[2019-03-01] MEDS: traMADol 50 MG Tab PO PRN ×2 (08:11→22:47)
[2019-03-01] MEDS: Clopidogrel 75 MG Tab PO SCH (08:12)
[2019-03-01] MEDS: Metoprolol Succinate 50 MG Tab.ER PO SCH (08:12)
[2019-03-01] MEDS: Phenazopyridine 95 MG Tab PO SCH (08:12)
[2019-03-01] MEDS: Diltiazem 180 MG Cap.CD PO SCH (08:12)
[2019-03-01] MEDS: Pantoprazole 40 MG Tab.CR PO SCH ×2 (08:12→22:46)
[2019-03-01] MEDS: Rosuvastatin 10 MG Tab PO SCH (08:12)
[2019-03-01] MEDS: CANAGLIFLOZIN PO SCH (08:13)
[2019-03-01] MEDS: METFORMIN HCL PO SCH (08:13)
[2019-03-01] MEDS: Pregabalin 25 MG Cap PO SCH ×3 (08:41→22:46)
--- NOTE | 2019-03-01 10:07 | PCM.PN ---
- General Info Date of Service: 03/01/19 Admission Dx/Problem (Free Text): Admission Diagnosis/Problem Admission Diagnosis/Problem UTI, Urinary tract infectious disease Subjective Update: Follow Up Functional Status: Reports: Pain Controlled, Tolerating Diet, Ambulating, Urinating. Denies: New Symptoms - Review of Systems General: Denies: Fever, Weakness, Fatigue, Malaise, Chills HEENT: Reports: No Symptoms Pulmonary: Denies: Shortness of Breath Cardiovascular: Denies: Chest Pain, Dyspnea on Exertion, Lightheadedness Gastrointestinal: Denies: Abdominal Pain, Nausea, Vomiting Genitourinary: Reports: No Symptoms Musculoskeletal: Reports: No Symptoms Neurological: Denies: Confusion, Difficulty Walking, Weakness, Gait Disturbance Psychiatric: Denies: Depression, Anxiety, Agitation, Hallucinations Systems Review Comment:: No overnight issues. He feels pretty good and has no new complaints - Patient Data Vitals - Most Recent: Last Vital Signs Temp 36.8 C 03/01/19 04:18 Pulse 120 H 03/01/19 08:12 Resp 15 03/01/19 04:18 BP 104/78 03/01/19 08:12 Pulse Ox 96 03/01/19 04:18 Weight - Most Recent: 110.631 kg I&O - Last 24 Hours: Intake & Output 02/28/19 03/01/19 03/01/19 22:59 06:59 14:59 Intake Total 900 420 50 Output Total 300 850 Balance 600 -430 50 Lab Results Last 24 Hours: Laboratory Results - last 24 hr 02/28/19 02/28/19 02/28/19 Range/Units 11:38 17:28 22:24 WBC (4.23-9.07) K/mm3 RBC (4.63-6.08) M/mm3 Hgb (13.7-17.5) gm/L Hct (40.1-51.0) % MCV (79.0-92.2) fl MCH (25.7-32.2) pg MCHC (32.2-35.5) g/dl RDW Std Deviation (35.1-43.9) fL Plt Count (163-337) K/mm3 MPV (9.4-12.3) fl Neut % (Auto) (34.0-67.9) % Lymph % (Auto) (21.8-53.1) % Morris % (Auto) (5.3-12.2) % Eos % (Auto) (0.8-7.0) Baso % (Auto) (0.1-1.2) % Neut # (Auto) (1.78-5.38) K/mm3 Lymph # (Auto) (1.32-3.57) K/mm3 Morris # (Auto) (0.30-0.82) K/mm3 Eos # (Auto) (0.04-0.54) K/mm3 Baso # (Auto) (0.01-0.08) K/mm3 Manual Slide Review Sodium (136-145) mEq/L Potassium (3.5-5.1) mEq/L Chloride (98-107) mEq/L Carbon Dioxide (21-32) mEq/L Anion Gap (5-15) BUN (7-18) mg/dL Creatinine (0.7-1.3) mg/dL Est Cr Clr Drug Dosing mL/min Estimated GFR (MDRD) (>60) mL/min BUN/Creatinine Ratio (14-18) Glucose (83-115) mg/dL POC Glucose 284 H 346 H 285 H (83-110) mg/dL Calcium (8.5-10.1) mg/dL Magnesium (1.8-2.4) mg/dl C-Reactive Protein (<1.0) mg/dL 03/01/19 03/01/19 03/01/19 Range/Units 05:25 05:25 06:59 WBC 7.44 (4.23-9.07) K/mm3 RBC 4.23 L (4.63-6.08) M/mm3 Hgb 13.4 L (13.7-17.5) gm/L Hct 40.7 (40.1-51.0) % MCV 96.2 H (79.0-92.2) fl MCH 31.7 (25.7-32.2) pg MCHC 32.9 (32.2-35.5) g/dl RDW Std Deviation 44.3 H (35.1-43.9) fL Plt Count 170 (163-337) K/mm3 MPV 10.3 (9.4-12.3) fl Neut % (Auto) 79.8 H (34.0-67.9) % Lymph % (Auto) 9.1 L (21.8-53.1) % Morris % (Auto) 10.3 (5.3-12.2) % Eos % (Auto) 0.5 L (0.8-7.0) Baso % (Auto) 0.0 L (0.1-1.2) % Neut # (Auto) 5.93 H (1.78-5.38) K/mm3 Lymph # (Auto) 0.68 L (1.32-3.57) K/mm3 Morris # (Auto) 0.77 (0.30-0.82) K/mm3 Eos # (Auto) 0.04 (0.04-0.54) K/mm3 Baso # (Auto) 0.00 L (0.01-0.08) K/mm3 Manual Slide Review Abnormal smear Sodium 135 L (136-145) mEq/L Potassium 4.3 (3.5-5.1) mEq/L Chloride 103 (98-107) mEq/L Carbon Dioxide 22 (21-32) mEq/L Anion Gap 14.3 (5-15) BUN 24 H (7-18) mg/dL Creatinine 0.9 (0.7-1.3) mg/dL Est Cr Clr Drug Dosing 64.39 mL/min Estimated GFR (MDRD) > 60 (>60) mL/min BUN/Creatinine Ratio 26.7 H (14-18) Glucose 227 H (83-115) mg/dL POC Glucose 222 H (83-110) mg/dL Calcium 8.2 L (8.5-10.1) mg/dL Magnesium 2.0 (1.8-2.4) mg/dl C-Reactive Protein 5.0 H* (<1.0) mg/dL Med Orders - Current: Current Medications Acetaminophen (Tylenol) 650 mg PO Q4H PRN PRN Reason: Pain (Mild 1-3)/fever Last Admin: 02/28/19 09:44 Dose: 650 mg Hydrocodone Bitart/Acetaminophen ([place] 325-5 Mg) 1 tab PO Q4H PRN PRN Reason: Pain (moderate 4-6) Albuterol/Ipratropium (Duoneb 3.0-0.5 Mg/3 Ml) 3 ml NEB Q4H PRN PRN Reason: Shortness Of Breath/wheezing Bisacodyl (Dulcolax) 5 mg PO DAILY PRN PRN Reason: Constipation Calcium Polycarbophil (Fibercon) 1,250 mg PO BEDTIME [facility] Last Admin: 02/28/19 22:26 Dose: 1,250 mg Clopidogrel Bisulfate (Plavix) 75 mg PO DAILY [facility] Last Admin: 03/01/19 08:12 Dose: 75 mg Dextrose/Water (Dextrose 50% In Water) 50 ml IVPUSH ASDIRECTED PRN PRN Reason: Hypoglycemia Diclofenac Sodium (Voltaren 1% Gel) 4 gm TOP QID PRN PRN Reason: Pain Diltiazem HCl (Cardizem Cd) 180 mg PO DAILY [facility] Last Admin: 03/01/19 08:12 Dose: 180 mg Docusate Sodium (Colace) 100 mg PO BID PRN PRN Reason: Constipation Gabapentin (Neurontin) 100 mg PO BEDTIME [facility] Last Admin: 02/28/19 22:26 Dose: 100 mg Glipizide (Glucotrol) 2.5 mg PO BID [facility] Hydromorphone HCl (Dilaudid) 0.25 mg IVPUSH Q2H PRN PRN Reason: Pain (severe 7-10) Promethazine HCl 6.25 mg/ (Sodium Chloride) 50.25 mls @ 100 mls/hr IV Q6H PRN PRN Reason: Nausea/Vomiting Meropenem/Sodium Chloride (Meropenem) 50 mls @ 100 mls/hr IV Q6H [facility] Last Admin: 03/01/19 08:09 Dose: 100 mls/hr Insulin Human Lispro (Humalog) 0 unit SUBCUT QIDACANDBED [facility]; Protocol Last Admin: 03/01/19 08:09 Dose: 2 unit Lorazepam (Ativan) 0.25 mg IV Q6H PRN PRN Reason: Anxiety Last Admin: 03/01/19 09:00 Dose: 0.25 mg Lorazepam (Ativan) 1 mg PO TID PRN PRN Reason: Anxiety Last Admin: 03/01/19 08:11 Dose: 1 mg Metoprolol Succinate (Toprol Xl) 50 mg PO DAILY [facility] Last Admin: 03/01/19 08:12 Dose: 50 mg Mupirocin (Bactroban Oint) gm TOP BID [facility] Non-Formulary Medication (Insulin Glargine,Hum.Rec.Anlog [Makenzie Maololydaquan]) 44 units SQ DAILY [facility] Non-Formulary Medication (Triamcinolone Acetonide) 1 applic TOP TID [facility] Ondansetron HCl (Zofran) 4 mg IV Q6H PRN PRN Reason: Nausea/Vomiting Pantoprazole Sodium (Protonix) 40 mg PO Q12H [facility] Last Admin: 03/01/19 08:12 Dose: 40 mg Canagliflozin/Metformin Hcl [ Invokamet Xr 150-500 Mg Tab]Ptom 2 each PO DAILY [facility] Last Admin: 03/01/19 08:13 Dose: Not Given Phenazopyridine HCl (Urinary Pain Relief) 95 mg PO DAILY [facility] Last Admin: 03/01/19 08:12 Dose: 95 mg Polyethylene Glycol (Miralax) 17 gm PO DAILY PRN PRN Reason: Constipation Pregabalin (Lyrica) 25 mg PO BID [facility] Last Admin: 03/01/19 08:47 Dose: 25 mg Rivaroxaban (Xarelto) 20 mg PO DAILY [facility] Last Admin: 03/01/19 08:10 Dose: 20 mg Rosuvastatin Calcium (Crestor) 10 mg PO DAILY [facility] Last Admin: 03/01/19 08:12 Dose: 10 mg Senna/Docusate Sodium (Senna Plus) 1 tab PO BID PRN PRN Reason: Constipation Sodium Chloride (Saline Flush) 10 ml FLUSH ASDIRECTED PRN PRN Reason: Keep Vein Open Last Admin: 02/27/19 11:34 Dose: 10 ml Spironolactone (Aldactone) 50 mg PO DAILY [facility] Last Admin: 03/01/19 08:10 Dose: 50 mg Tramadol HCl (Ultram) 50 - 100 mg PO Q4HR PRN PRN Reason: Pain Last Admin: 03/01/19 08:11 Dose: 50 mg Discontinued Medications Diphenhydramine HCl (Benadryl) 25 mg IVPUSH ONETIME ONE Stop: 02/27/19 19:14 Last Admin: 02/27/19 20:22 Dose: 25 mg Sodium Chloride (Normal Saline) 1,000 mls @ 150 mls/hr IV ASDIRECTED [facility] Last Admin: 02/27/19 19:13 Dose: 150 mls/hr Meropenem 1 gm/ Sodium (Chloride) 100 mls @ 200 mls/hr IV Q8H [facility] Last Admin: 02/27/19 22:48 Dose: Not Given Insulin Glargine (Lantus) 35 unit SUBCUT ONETIME ONE Stop: 02/28/19 16:01 Last Admin: 02/28/19 16:09 Dose: 35 units Meropenem (Merrem) 1 gm IVPUSH Q8H [facility] Last Admin: 02/27/19 20:29 Dose: Not Given Methylprednisolone Sodium Succinate (Solu-Medrol) 40 mg IVPUSH ONETIME ONE Stop: 02/27/19 19:14 Last Admin: 02/27/19 20:22 Dose: 40 mg Pantoprazole Sodium (Protonix Iv) 40 mg IV Q12HR [facility] Last Admin: 02/28/19 09:43 Dose: 40 mg - Exam General: Alert, Oriented, Cooperative, No Acute Distress HEENT: Pupils Equal, Pupils Reactive, EOMI, Mucous Membr. Moist/[place] Neck: Supple Lungs: Normal Respiratory Effort Cardiovascular: Irregular Rhythm GI/Abdominal Exam: Normal Bowel Sounds, Soft, Non-Tender, No Organomegaly, No Distention, No Abnormal Bruit (Male) Exam: Deferred Back Exam: Normal Inspection, Decreased Range of Motion Extremities: Normal Inspection, Normal Range of Motion, Non-Tender, No Pedal Edema, Normal Capillary Refill Peripheral Pulses: 2+: Dorsalis Pedis (L), Dorsalis Pedis (R) Skin: Warm, Dry, Intact, Ecchymosis, Other (tattoos) Neurological: No New Focal Deficit Psy/Mental Status: Alert, Normal Affect, Normal Mood - Problem List Review Problem List Initiated/Reviewed/Updated: Yes - My Orders Last 24 Hours: My Active Orders 02/28/19 09:00 Patient's Own Medication [Ptom] 2 each PO DAILY Rivaroxaban [Xarelto] 20 mg PO DAILY 02/28/19 09:43 Diclofenac Sodium [Voltaren 1% Gel] 4 gm TOP QID PRN 02/28/19 15:00 Triamcinolone Acetonide 1 applic TOP TID 02/28/19 15:45 Clopidogrel [Plavix] 75 mg PO DAILY Metoprolol Succinate [Toprol XL] 50 mg PO DAILY 02/28/19 16:00 Diltiazem [Cardizem CD] 180 mg PO DAILY Phenazopyridine [Urinary Pain Relief] 95 mg PO DAILY Rosuvastatin [Crestor] 10 mg PO DAILY Spironolactone [Aldactone] 50 mg PO DAILY 02/28/19 21:00 Gabapentin [Neurontin] 100 mg PO BEDTIME Mupirocin Oint [Bactroban Oint] DOSE gm TOP BID Pantoprazole [ProTONIX] 40 mg PO Q12H Pregabalin [Lyrica] 25 mg PO BID 03/01/19 09:00 Insulin Glargine,Hum.Rec.Anlog [Toujeo Solostar] 44 units SQ DAILY 03/01/19 21:00 glipiZIDE [Glucotrol] 2.5 mg PO BID 03/02/19 05:11 BASIC METABOLIC PANEL,BMP [CHEM] AM C-REACTIVE PROTEIN [CHEM] AM CBC WITH AUTO DIFF [HEME] AM MAGNESIUM [CHEM] AM 03/03/19 05:11 BASIC METABOLIC PANEL,BMP [CHEM] AM C-REACTIVE PROTEIN [CHEM] AM CBC WITH AUTO DIFF [HEME] AM MAGNESIUM [CHEM] AM 03/04/19 05:11 BASIC METABOLIC PANEL,BMP [CHEM] AM C-REACTIVE PROTEIN [CHEM] AM CBC WITH AUTO DIFF [HEME] AM MAGNESIUM [CHEM] AM - Assessment Assessment:: Assessment: Acute: Urinary Tract Infection 2/2 Proteus Mirabilis * 3 day history of dysuria * Foul-smelling, cloudy urine--> improved today * UA done 02/25 * Positive nitrites, leukocyte esterase * Did not improve with outpatient treatment * Responding to IV Meropenem 50 mg Q6H (day 3) Type II DM * BS remains uncontrolled * Accu-check with ISS--> high dose plsu home insulin regimen * Glucotrol 1.5 mg po BID * Continue to monitor blood glucose Diabetic Neuropathy * Bilateral pain to palpation * Unsteady on feet * Uses 2 canes for ambulation * Will need assistance Morbid Obesity * 244 lbs * Consult with dietary for weight management Chronic: Impaired Hearing, HTN, HLD, CAD S/p Stent Placement x1, COPD, CHF, Atrial Fibrillation, Type II DM, Prostate Cancer, Umbilical Hernia, OA/DJD, and Psoriasis Plan: He remains clinically stable Continue IV antibiotic Routine AM Labs Monitor blood glucose Code status: full Additional orders as above LOS anticipate 2-3 days of IV antibiotic treatment Updated patient regarding his clinical progress, treatment and possible discharge care plan.
[2019-03-01] MEDS: glipiZIDE 5 MG Tab PO SCH (15:22)
[2019-03-01] MEDS ORDERED: TOUJEO SQ SCH (21:45)
[2019-03-01] MEDS: Calcium Polycarbophil 625 MG Tab PO SCH (22:45)
[2019-03-01] MEDS: Gabapentin 100 MG Cap PO SCH (22:46)
[2019-03-02] MEDS: MEROPENEM IV SCH ×2 (03:12→08:52)
[2019-03-02] MEDS: glipiZIDE 5 MG Tab PO SCH (06:50)
--- NOTE | 2019-03-02 07:49 | PCM.DCSUM1 ---
Discharge Summary - Hospital Course Brief History: Patient is 78 yo male with hx/o CHF, HTN, Afib, COPD, Type II DM , prostate cancer, psoriasis, presents to med/surg after admission from ER for dysuria and generalized weakness. Pt states that on Sunday02/24/19, he experienced an episode of severe dysuria. He states the urine appeared cloudy and had a strong, foul odor. The following day he called into Dr. Noriega's office, where he was instructed to come to the lab and give a urine sample. It was confirmed then that he had a UTI and he received a prescription for Bactrim. He had taken 2 tablets of Bactrim prior to presentation to ER. The day of admission, patient reports he was feeling cold, having chills, and felt weak and fatigued. The decision was made by family to bring him to the ER because they felt that he was not himself. Pt and family deny that he was confused, but simply in a 'fog.'. In ER it was determined that he was very weak and would benefit from admission. Primary labs obtained in ER show sodium of 135, Glucose 129, CRP 4.8, albumin 3.3. UA showed traced blood, positive nitrites, 5- 10 RBCs, 10-20 WBCs, trace leukocyte esterase. Diagnosis: Stroke: No Modified [place] Scale: No Symptoms at All Modified [place] Scale Score: 0 - Discharge Data Discharge Date: 03/02/19 Discharge Disposition: Home, Self-Care 01 Condition: Good - Patient Summary/Data Operative Procedure(s) Performed: None Complications: None Consults: Consultations 02/27/19 18:10 Consult to Case Management/Operations Vice President [CONS] Routine OT Evaluation and Treatment [CONS] Routine PT Evaluation and Treatment [CONS] Routine Labs Pending at D/C: None Recommended Follow-up Testing/Procedures: None Planned Operative Procedure(s) after DC: None Hospital Course: Patient was primarily admitted for inpatient treatment of UTI 2/2 Proteus Mirabilis. He was on appropriate oral antibiotic outpatient but he did not do well. Upon admission, he received intravenous Meropenem and he slowly improved on this regimen. His hospital course was fairly uncomplicated. His glucose was mildly uncontrolled but we were able to improve it prior to discharge. Patient was released once medically stable and was advised to continue his home dose antibiotic and follow up with his family doctor after discharge. He was further advised to come back or seek immediate care should his symptoms persist or get worse. - Patient Instructions Diet: Heart Healthy Diet, Usual Diet as Tolerated, Low Sodium, Diabetic Diet Activity: As Tolerated Driving: Do Not Drive Showering/Bathing: May Shower Notify Provider of: Fever, Increased Pain, Swelling and Redness, Drainage, Nausea and/or Vomiting Other/Special Instructions: - Please take all new medications as directed. - Resume routine home medications and activity as tolerated. - Follow instructions for maintaining personal hygiene. - Keep appointment with urology as scheduled. - Call or follow up with your doctor for any concerns or issues after discharge. - Follow up with your doctor in 1 week. - Come back or seek immediate care should your symptoms persist or get worse - Discharge Plan *PRESCRIPTION DRUG MONITORING PROGRAM REVIEWED*: Not Applicable *COPY OF PRESCRIPTION DRUG MONITORING REPORT IN PATIENT JASPER: Not Applicable Prescriptions/Med Rec: Saccharomyces Boulardii [Florastor] 250 mg PO BID #30 capsule Home Medications: Home Meds Calcium Polycarbophil [Fiber Laxative] 1,250 mg PO BEDTIME 02/27/19 [History] Canagliflozin/Metformin HCl [Invokamet Xr 150-500 mg Tablet] 2 tab PO DAILY [History] Clopidogrel Bisulfate [Clopidogrel] 75 mg PO DAILY 02/27/19 [History] Diclofenac Sodium 4 g TOP QID PRN 02/27/19 [History] Diltiazem HCl [Diltiazem 24Hr ER] 180 mg PO DAILY 02/27/19 [History] Gabapentin [Neurontin] 1 cap PO BEDTIME 02/27/19 [History] Insulin Glargine,Hum.Rec.Anlog [Toujeo Solostar] 44 units SQ DAILY 02/27/19 [ History] Insulin Glulisine [Apidra Solostar] 0 units SQ TID PRN 02/27/19 [History] Insulin Glulisine [Apidra Solostar] 5 units SQ TIDMEALS 02/27/19 [History] LORazepam 1 mg PO TID PRN 02/27/19 [History] Metoprolol Succinate 50 mg PO DAILY 02/27/19 [History] Mupirocin Oint [Bactroban Oint] 1 applic TOP BID 02/27/19 [History] Phenazopyridine HCl [Azo Urinary Pain Relief] 95 mg PO DAILY 02/27/19 [History] Pregabalin [Lyrica] 25 mg PO BID 02/27/19 [History] Rivaroxaban [Xarelto] 20 mg PO DAILY 02/27/19 [History] Rosuvastatin Calcium 10 mg PO DAILY 02/27/19 [History] Spironolactone [Aldactone] 50 mg PO DAILY 02/27/19 [History] Sulfamethoxazole/Trimethoprim [Bactrim Ds Tablet] 1 tab PO BID 02/27/19 [History ] Triamcinolone Acetonide [Triamcinolone Acetonide 0.1% Oint] 1 applic TOP TID [History] traMADol HCl [Tramadol HCl] 50 - 100 mg PO Q4HR PRN MDD 8 tabs 02/27/19 [History ] Saccharomyces Boulardii [Florastor] 250 mg PO BID #30 capsule 03/02/19 [Rx] Oxygen Therapy Mode: Room Air Patient Handouts: Urinary Tract Infection, Adult, Heart Failure Referrals: [facility]as[facility] Gil MD [Primary Care Provider[facility] 03/03/19 10:00 am (Urology appointment in [place]. Appointment is at 9:00 am [place] Standard Time.) - Discharge Summary/Plan Comment DC Time >30 min.: No Discharge Summary/Plan Comment: Discharge to Home - General Info Date of Service: 03/02/19 Admission Dx/Problem (Free Text: Admission Diagnosis/Problem Admission Diagnosis/Problem UTI, Urinary tract infectious disease Subjective Update: Follow Up Functional Status: Reports: Pain Controlled, Tolerating Diet, Ambulating, Urinating - Review of Systems General: Denies: Fever, Weakness, Fatigue, Malaise, Chills HEENT: Reports: No Symptoms Pulmonary: Denies: Shortness of Breath Cardiovascular: Denies: Chest Pain, Dyspnea on Exertion, Edema, Lightheadedness , Other Gastrointestinal: Denies: Abdominal Pain, Nausea, Vomiting Genitourinary: Reports: No Symptoms Musculoskeletal: Reports: No Symptoms Skin: Denies: Pallor, Diaphoresis, Bruising, Pruritis, Rash Neurological: Denies: Confusion, Difficulty Walking, Weakness, Gait Disturbance Psychiatric: Denies: Depression, Anxiety, Agitation, Hallucinations Systems Review Comment: He had an uneventful night. He feels pretty good and well rested overnight. He is ready to go home today. Afebrile and w/o leukocytosis. His glucose overall is much improved. - Patient Data Vitals - Most Recent: Last Vital Signs Temp 36.6 C 03/02/19 05:24 Pulse 89 03/02/19 05:24 Resp 14 03/02/19 05:24 BP 113/72 03/02/19 05:24 Pulse Ox 94 L 03/02/19 05:24 Weight - Most Recent: 108.091 kg I&O - Last 24 hours: Intake & Output 03/01/19 03/02/19 03/02/19 22:59 06:59 14:59 Intake Total 50 500 Output Total 200 650 Balance -150 -150 Lab Results - Last 24 hrs: Laboratory Results - last 24 hr 03/01/19 03/01/19 03/01/19 Range/Units 11:16 16:28 22:44 WBC (4.23-9.07) K/mm3 RBC (4.63-6.08) M/mm3 Hgb (13.7-17.5) gm/L Hct (40.1-51.0) % MCV (79.0-92.2) fl MCH (25.7-32.2) pg MCHC (32.2-35.5) g/dl RDW Std Deviation (35.1-43.9) fL Plt Count (163-337) K/mm3 MPV (9.4-12.3) fl Neut % (Auto) (34.0-67.9) % Lymph % (Auto) (21.8-53.1) % [place] % (Auto) (5.3-12.2) % Eos % (Auto) (0.8-7.0) Baso % (Auto) (0.1-1.2) % Neut # (Auto) (1.78-5.38) K/mm3 Lymph # (Auto) (1.32-3.57) K/mm3 [place] # (Auto) (0.30-0.82) K/mm3 Eos # (Auto) (0.04-0.54) K/mm3 Baso # (Auto) (0.01-0.08) K/mm3 Sodium (136-145) mEq/L Potassium (3.5-5.1) mEq/L Chloride (98-107) mEq/L Carbon Dioxide (21-32) mEq/L Anion Gap (5-15) BUN (7-18) mg/dL Creatinine (0.7-1.3) mg/dL Est Cr Clr Drug Dosing mL/min Estimated GFR (MDRD) (>60) mL/min BUN/Creatinine Ratio (14-18) Glucose (83-115) mg/dL POC Glucose 264 H 139 H 203 H (83-110) mg/dL Calcium (8.5-10.1) mg/dL Magnesium (1.8-2.4) mg/dl C-Reactive Protein (<1.0) mg/dL 03/02/19 03/02/19 Range/Units 06:05 06:05 WBC 6.12 (4.23-9.07) K/mm3 RBC 3.95 L (4.63-6.08) M/mm3 Hgb 12.8 L (13.7-17.5) gm/L Hct 38.4 L (40.1-51.0) % MCV 97.2 H (79.0-92.2) fl MCH 32.4 H (25.7-32.2) pg MCHC 33.3 (32.2-35.5) g/dl RDW Std Deviation 44.8 H (35.1-43.9) fL Plt Count 182 (163-337) K/mm3 MPV 10.7 (9.4-12.3) fl Neut % (Auto) 64.4 (34.0-67.9) % Lymph % (Auto) 19.3 L (21.8-53.1) % [place] % (Auto) 13.2 H (5.3-12.2) % Eos % (Auto) 2.6 (0.8-7.0) Baso % (Auto) 0.2 (0.1-1.2) % Neut # (Auto) 3.94 (1.78-5.38) K/mm3 Lymph # (Auto) 1.18 L (1.32-3.57) K/mm3 [place] # (Auto) 0.81 (0.30-0.82) K/mm3 Eos # (Auto) 0.16 (0.04-0.54) K/mm3 Baso # (Auto) 0.01 (0.01-0.08) K/mm3 Sodium 136 (136-145) mEq/L Potassium 4.3 (3.5-5.1) mEq/L Chloride 104 (98-107) mEq/L Carbon Dioxide 26 (21-32) mEq/L Anion Gap 10.3 (5-15) BUN 19 H (7-18) mg/dL Creatinine 0.9 (0.7-1.3) mg/dL Est Cr Clr Drug Dosing 64.39 mL/min Estimated GFR (MDRD) > 60 (>60) mL/min BUN/Creatinine Ratio 21.1 H (14-18) Glucose 174 H (83-115) mg/dL POC Glucose (83-110) mg/dL Calcium 8.1 L (8.5-10.1) mg/dL Magnesium 1.9 (1.8-2.4) mg/dl C-Reactive Protein 3.5 H* (<1.0) mg/dL Med Orders - Current: Current Medications Acetaminophen (Tylenol) 650 mg PO Q4H PRN PRN Reason: Pain (Mild 1-3)/fever Last Admin: 02/28/19 09:44 Dose: 650 mg Hydrocodone Bitart/Acetaminophen ([place] 325-5 Mg) 1 tab PO Q4H PRN PRN Reason: Pain (moderate 4-6) Albuterol/Ipratropium (Duoneb 3.0-0.5 Mg/3 Ml) 3 ml NEB Q4H PRN PRN Reason: Shortness Of Breath/wheezing Bisacodyl (Dulcolax) 5 mg PO DAILY PRN PRN Reason: Constipation Calcium Polycarbophil (Fibercon) 1,250 mg PO BEDTIME [facility] Last Admin: 03/01/19 22:45 Dose: 1,250 mg Clopidogrel Bisulfate (Plavix) 75 mg PO DAILY [facility] Last Admin: 03/01/19 08:12 Dose: 75 mg Dextrose/Water (Dextrose 50% In Water) 50 ml IVPUSH ASDIRECTED PRN PRN Reason: Hypoglycemia Diclofenac Sodium (Voltaren 1% Gel) 4 gm TOP QID PRN PRN Reason: Pain Diltiazem HCl (Cardizem Cd) 180 mg PO DAILY [facility] Last Admin: 03/01/19 08:12 Dose: 180 mg Docusate Sodium (Colace) 100 mg PO BID PRN PRN Reason: Constipation Gabapentin (Neurontin) 100 mg PO BEDTIME [facility] Last Admin: 03/01/19 22:46 Dose: 100 mg Glipizide (Glucotrol) 2.5 mg PO BIDAC [facility] Last Admin: 03/02/19 06:50 Dose: Not Given Hydromorphone HCl (Dilaudid) 0.25 mg IVPUSH Q2H PRN PRN Reason: Pain (severe 7-10) Promethazine HCl 6.25 mg/ (Sodium Chloride) 50.25 mls @ 100 mls/hr IV Q6H PRN PRN Reason: Nausea/Vomiting Meropenem/Sodium Chloride (Meropenem) 50 mls @ 100 mls/hr IV Q6H [facility] Last Admin: 03/02/19 03:12 Dose: 100 mls/hr Insulin Human Lispro (Humalog) 0 unit SUBCUT QIDACANDBED [facility]; Protocol Last Admin: 03/01/19 22:48 Dose: 6 unit Lorazepam (Ativan) 0.25 mg IV Q6H PRN PRN Reason: Anxiety Last Admin: 03/01/19 09:00 Dose: 0.25 mg Lorazepam (Ativan) 1 mg PO TID PRN PRN Reason: Anxiety Last Admin: 03/01/19 22:47 Dose: 1 mg Metoprolol Succinate (Toprol Xl) 50 mg PO DAILY [facility] Last Admin: 03/01/19 08:12 Dose: 50 mg Mupirocin (Bactroban Oint) gm TOP BID [facility] Non-Formulary Medication (Triamcinolone Acetonide) 1 applic TOP TID [facility] Makenzie Michelle ( Insulin Glargine 300 Units/Ml*Own Med 44 units SQ BEDTIME [facility] Last Admin: 03/01/19 22:49 Dose: 44 units Ondansetron HCl (Zofran) 4 mg IV Q6H PRN PRN Reason: Nausea/Vomiting Pantoprazole Sodium (Protonix) 40 mg PO Q12H [facility] Last Admin: 03/01/19 22:46 Dose: 40 mg Canagliflozin/Metformin Hcl [ Invokamet Xr 150-500 Mg Tab]Ptom 2 each PO DAILY [facility] Last Admin: 03/01/19 08:13 Dose: Not Given Phenazopyridine HCl (Urinary Pain Relief) 95 mg PO DAILY [facility] Last Admin: 03/01/19 08:12 Dose: 95 mg Polyethylene Glycol (Miralax) 17 gm PO DAILY PRN PRN Reason: Constipation Pregabalin (Lyrica) 25 mg PO BID [facility] Last Admin: 03/01/19 22:46 Dose: 25 mg Rivaroxaban (Xarelto) 20 mg PO DAILY [facility] Last Admin: 03/01/19 08:10 Dose: 20 mg Rosuvastatin Calcium (Crestor) 10 mg PO DAILY [facility] Last Admin: 03/01/19 08:12 Dose: 10 mg Senna/Docusate Sodium (Senna Plus) 1 tab PO BID PRN PRN Reason: Constipation Sodium Chloride (Saline Flush) 10 ml FLUSH ASDIRECTED PRN PRN Reason: Keep Vein Open Last Admin: 02/27/19 11:34 Dose: 10 ml Spironolactone (Aldactone) 50 mg PO DAILY [facility] Last Admin: 03/01/19 08:10 Dose: 50 mg Tramadol HCl (Ultram) 50 - 100 mg PO Q4HR PRN PRN Reason: Pain Last Admin: 03/01/19 22:47 Dose: 50 mg Discontinued Medications Diphenhydramine HCl (Benadryl) 25 mg IVPUSH ONETIME ONE Stop: 02/27/19 19:14 Last Admin: 02/27/19 20:22 Dose: 25 mg Sodium Chloride (Normal Saline) 1,000 mls @ 150 mls/hr IV ASDIRECTED [facility] Last Admin: 02/27/19 19:13 Dose: 150 mls/hr Meropenem 1 gm/ Sodium (Chloride) 100 mls @ 200 mls/hr IV Q8H [facility] Last Admin: 02/27/19 22:48 Dose: Not Given Insulin Glargine (Lantus) 35 unit SUBCUT ONETIME ONE Stop: 02/28/19 16:01 Last Admin: 02/28/19 16:09 Dose: 35 units Meropenem (Merrem) 1 gm IVPUSH Q8H [facility] Last Admin: 02/27/19 20:29 Dose: Not Given Methylprednisolone Sodium Succinate (Solu-Medrol) 40 mg IVPUSH ONETIME ONE Stop: 02/27/19 19:14 Last Admin: 02/27/19 20:22 Dose: 40 mg Toujeo Solostar ( Insulin Glargine 300 Units/Ml*Own Med 44 units SQ BEDTIME [facility] Pantoprazole Sodium (Protonix Iv) 40 mg IV Q12HR [facility] Last Admin: 02/28/19 09:43 Dose: 40 mg - Exam General: Reports: Alert, Oriented, Cooperative, No Acute Distress HEENT: Reports: Pupils Equal, Pupils Reactive, EOMI, Mucous Membr. Moist/Bone Gap Neck: Reports: Supple Lungs: Reports: Normal Respiratory Effort, Decreased Breath Sounds Cardiovascular: Reports: Regular Rate, Regular Rhythm GI/Abdominal Exam: Normal Bowel Sounds, Soft, Non-Tender, No Organomegaly, No Distention, No Abnormal Bruit, No Mass (Male) Exam: Deferred Rectal (Males) Exam: Deferred Back Exam: Reports: Normal Inspection, Decreased Range of Motion Extremities: Normal Inspection, Normal Range of Motion, Non-Tender, No Pedal Edema, Normal Capillary Refill Skin: Reports: Warm, Dry, Intact, Other (skin tattoos) Neurological: Reports: No New Focal Deficit Psy/Mental Status: Reports: Alert, Normal Affect, Normal Mood
[2019-03-02] MEDS: Insulin Lispro 100 Units/ML 3 ML Vial SUBCUT SCH ×2 (08:44→13:12)
[2019-03-02] MEDS: Phenazopyridine 95 MG Tab PO SCH (08:47)
[2019-03-02] MEDS: Spironolactone 25 MG Tab PO SCH (08:48)
[2019-03-02] MEDS: LORazepam 1 MG Tab PO PRN (08:48)
[2019-03-02] MEDS: Diltiazem 180 MG Cap.CD PO SCH (08:49)
[2019-03-02] MEDS: Pregabalin 25 MG Cap PO SCH (08:50)
[2019-03-02] MEDS: Pantoprazole 40 MG Tab.CR PO SCH (08:50)
[2019-03-02] MEDS: traMADol 50 MG Tab PO PRN (08:51)
[2019-03-02] MEDS: Rosuvastatin 10 MG Tab PO SCH (08:55)
[2019-03-02] MEDS: Clopidogrel 75 MG Tab PO SCH (08:56)
[2019-03-02] MEDS: Rivaroxaban 10 MG Tab PO SCH (08:58)
[2019-03-02] MEDS: Metoprolol Succinate 50 MG Tab.ER PO SCH (09:00)
[2019-03-02 09:01] VITALS: BP 106/60
[2019-03-02] MEDS: CANAGLIFLOZIN PO SCH (09:01)
[2019-03-02] MEDS: METFORMIN HCL PO SCH (09:01)
[2019-03-02] MEDS: Mupirocin Oint 22 GM Tube TOP SCH ×3 (10:54→11:26)
[2019-03-02] MEDS: TRIAMCINOLONE ACETONIDE TOP SCH (10:57)
[2019-03-02] MEDS ORDERED: TOUJEO SQ SCH (21:00)
== END 2019-03-02 13:05 | disposition home or self-care (01) ==
LOC: JD.ED 10:28 → JD.MS 16:00 → INTOOBSV 16:00
PROVIDERS: ADMIT Internal Medicine; ATTEND Internal Medicine
DX: N39.0 Urinary tract infection, site not specified (principal); I11.0 Hypertensive heart disease with heart failure; I50.9 Heart failure, unspecified; J44.9 Chronic obstructive pulmonary disease, unspecified; I48.91 Unspecified atrial fibrillation; E11.622 Type 2 diabetes mellitus with other skin ulcer; E11.40 Type 2 diabetes mellitus with diabetic neuropathy, unspecified; E66.01 Morbid (severe) obesity due to excess calories; C61 Malignant neoplasm of prostate; B96.4 Proteus (mirabilis) (morganii) as the cause of diseases classified elsewhere; R31.9 Hematuria, unspecified; E78.00 Pure hypercholesterolemia, unspecified; M19.90 Unspecified osteoarthritis, unspecified site; Z79.899 Other long term (current) drug therapy; Z79.02 Long term (current) use of antithrombotics/antiplatelets; Z79.4 Long term (current) use of insulin; Z79.01 Long term (current) use of anticoagulants; Z79.2 Long term (current) use of antibiotics; Z68.36 Body mass index [BMI] 36.0-36.9, adult; Z88.1 Allergy status to other antibiotic agents; Z88.8 Allergy status to other drugs, medicaments and biological substances; Z88.0 Allergy status to penicillin
CPT/HCPCS: 36415; 80048; 80053; 81001; 82962; 83605; 83735; 85007; 85025; 85027; 86140; 96360; 97161; 97165; 97530; 99284; A9270; C9113; J1200; J1815; J2060; J2185; J2920; J7040; 96361; 96365; 96366; 96375; 96376; 99283; G0378

== ENCOUNTER 2021-11-10 08:44 | Inpatient (IN) | payer MEDICARE, BC ==
[2021-11-10] MEDS ORDERED: Morphine 4 MG/ML VIAL IVPUSH ONE (09:27)
[2021-11-10] MEDS ORDERED: Morphine 4 MG/ML Syringe IVPUSH ONE (09:45)
[2021-11-10] MEDS ORDERED: Sodium Chloride 0.9% 10 ML Syringe FLUSH PRN (10:09)
[2021-11-10] MEDS ORDERED: Iopamidol 755 Mg/ML 100 ML Bottle IVPUSH ONE (10:09)
[2021-11-10] MEDS ORDERED: Sodium Chloride 0.9% 100 ML IV SCH (10:15)
[2021-11-10] MEDS ORDERED: LORazepam 0.5 MG Tab PO ONE (10:38)
[2021-11-10 11:21] LABS: CORONAVIRUS COVID-19 NAA NEGATIVE (NEGATIVE)
[2021-11-10] MEDS ORDERED: LORazepam 0.5 MG Tab ONE (13:52)
[2021-11-10] MEDS ORDERED: LORazepam 2 MG/ML SDV IV PRN (16:59)
[2021-11-10] MEDS ORDERED: Glucose Gel 15 GM in 37.5 GM Tube PO ONE (16:59)
[2021-11-10] MEDS ORDERED: Pantoprazole 40 MG Vial ONE (16:59)
[2021-11-10] MEDS ORDERED: LORazepam 1 MG Tab PO PRN (17:09)
[2021-11-10] MEDS ORDERED: traMADol 50 MG Tab PO PRN (17:45)
[2021-11-10] MEDS ORDERED: Pantoprazole 40 MG Vial IVPUSH ONE (17:45)
[2021-11-10] MEDS: Mupirocin Oint 22 GM Tube TOP SCH (20:56)
[2021-11-10] MEDS ORDERED: Pregabalin 25 MG Cap PO SCH (21:00)
[2021-11-10] MEDS ORDERED: Gabapentin 100 MG Cap PO SCH (21:00)
[2021-11-10] MEDS ORDERED: Menthol/Methyl Salicylate 85 GM Tube TOP SCH (21:00)
[2021-11-10] MEDS ORDERED: Calcium Polycarbophil 625 MG Tab PO SCH (21:00)
[2021-11-10] MEDS ORDERED: Rivaroxaban 10 MG Tab PO ONE ×2 (23:15)
[2021-11-10] MEDS ORDERED: Rosuvastatin 10 MG Tab PO SCH ×2 (23:15→23:30)
[2021-11-10] MEDS ORDERED: Gabapentin 300 MG Cap PO ONE (23:15)
[2021-11-11] MEDS ORDERED: Insulin Glargine,Human Rec. Analog 100 Units/ML 3 ML Pen SUBCUT SCH (09:00)
[2021-11-11] MEDS ORDERED: Oxybutynin 5 MG Tab PO SCH (09:00)
[2021-11-11] MEDS ORDERED: Clopidogrel 75 MG Tab PO SCH (09:00)
[2021-11-11] MEDS ORDERED: Rivaroxaban 10 MG Tab PO SCH ×2 (09:00→21:00)
[2021-11-11] MEDS ORDERED: Bumetanide 1 MG Tab PO SCH (09:00)
[2021-11-11] MEDS ORDERED: Rosuvastatin 10 MG Tab PO SCH ×2 (09:00→21:00)
[2021-11-11] MEDS ORDERED: Metoprolol Succinate 50 MG Tab.ER PO SCH (09:00)
[2021-11-11] MEDS ORDERED: Diltiazem 180 MG Cap.CD PO SCH (09:00)
[2021-11-11] MEDS ORDERED: Phenazopyridine 95 MG Tab PO SCH (09:00)
[2021-11-11] MEDS: Insulin Lispro 100 Unit/ML 3 ML KwikPen SUBCUT SCH ×2 (10:03→14:02)
[2021-11-11] MEDS: Mupirocin Oint 22 GM Tube TOP SCH (10:13)
[2021-11-11] MEDS ORDERED: Insulin Lispro 100 Unit/ML 3 ML KwikPen SUBCUT SCH (17:00)
[2021-11-11 18:02] VITALS: BP 109/53; PULSE 83
[2021-11-11] MEDS ORDERED: Gabapentin 300 MG Cap PO SCH (21:00)
== END 2021-11-11 17:13 | disposition home or self-care (01) | DRG 204 ==
LOC: JD.ED 08:44 → JD.MS 13:32
PROVIDERS: ADMIT Pediatrics; ATTEND Pediatrics
DX: R07.81 Pleurodynia (principal); I48.92 Unspecified atrial flutter; H91.90 Unspecified hearing loss, unspecified ear; I48.4 Atypical atrial flutter; R07.89 Other chest pain; K21.9 Gastro-esophageal reflux disease without esophagitis; I10 Essential (primary) hypertension; I48.91 Unspecified atrial fibrillation; R32 Unspecified urinary incontinence; E78.00 Pure hypercholesterolemia, unspecified; I50.9 Heart failure, unspecified; I11.0 Hypertensive heart disease with heart failure; C61 Malignant neoplasm of prostate; J44.9 Chronic obstructive pulmonary disease, unspecified; Z88.1 Allergy status to other antibiotic agents; M19.90 Unspecified osteoarthritis, unspecified site; Z79.01 Long term (current) use of anticoagulants; Z79.02 Long term (current) use of antithrombotics/antiplatelets; F41.9 Anxiety disorder, unspecified; Z79.899 Other long term (current) drug therapy; E11.40 Type 2 diabetes mellitus with diabetic neuropathy, unspecified; R00.2 Palpitations; K59.04 Chronic idiopathic constipation; J40 Bronchitis, not specified as acute or chronic; Z20.822 Contact with and (suspected) exposure to COVID-19; Z88.0 Allergy status to penicillin; Z88.8 Allergy status to other drugs, medicaments and biological substances; Z95.5 Presence of coronary angioplasty implant and graft; Z87.440 Personal history of urinary (tract) infections; Z79.4 Long term (current) use of insulin; Z85.46 Personal history of malignant neoplasm of prostate; Z98.49 Cataract extraction status, unspecified eye
CPT/HCPCS: 0240U; 36415; 71045; 71046; 71275; 78452; 80053; 82150; 82947; 83690; 83735; 83880; 84484; 85007; 85025; 85027; 85379; 85652; 86140; 93005; 93017; 96374; 96375; 97161; 99285; A9270-GY; A9500; C9113; J1815; J1815-GY; J2270; J2785; J3490; Q9967

== ENCOUNTER 2023-01-25 13:55 | Inpatient (IN) | payer MEDICARE, BC ==
[2023-01-25] MEDS: Morphine 2 MG/ML SYRINGE IVPUSH ONE ×2 (15:23→16:42)
[2023-01-25 15:45] LABS: BASOPHILS ABSOLUTE AUTO 0.01 K/mm3 (0.01-0.08); BASOPHILS PERCENT AUTO 0.1 % (0.1-1.2); EOSINOPHILS ABSOLUTE AUTO 0.04 K/mm3 (0.04-0.54); EOSINOPHILS PERCENT AUTO 0.5 (0.8-7.0); HEMATOCRIT 37.7 % (40.1-51.0); HEMOGLOBIN 12.4 gm/dl (13.7-17.5); IMMATURE GRAN ABSOLUTE AUTO 0.02 K/mm3 (0.00-0.10); IMMATURE GRAN PERCENT AUTO 0.2 % (<=1.0); LYMPHOCYTES ABSOLUTE AUTO 1.33 K/mm3 (1.32-3.57); LYMPHOCYTES PERCENT AUTO 16.3 % (21.8-53.1); MEAN CORPUSCULAR HEMOGLOBIN 31.7 pg (25.7-32.2); MEAN CORPUSCULAR HGB CONC 32.9 g/dl (32.2-35.5); MEAN CORPUSCULAR VOLUME 96.4 fl (79.0-92.2); MEAN PLATELET VOLUME 10.7 fl (9.4-12.3); MONOCYTES ABSOLUTE AUTO 1.27 K/mm3 (0.30-0.82); MONOCYTES PERCENT AUTO 15.5 % (5.3-12.2); NEUTROPHILS ABSOLUTE AUTO 5.51 K/mm3 (1.78-5.38); NEUTROPHILS PERCENT AUTO 67.4 % (34.0-67.9); PLATELET COUNT,PLT 156 K/mm3 (163-337); RED BLOOD CELL COUNT 3.91 M/mm3 (4.63-6.08); WHITE BLOOD CELL COUNT,WBC 8.18 K/mm3 (4.23-9.07)
[2023-01-25 16:02] LABS: A/G RATIO 0.7 (1-2); ALBUMIN 3.1 g/dl (3.4-5.0); ANION GAP 13.1 (5-15); BILIRUBIN TOTAL 1.3 mg/dL (0.2-1.0); BUN/CREATININE RATIO 13.3 (14-18); CALCIUM 8.7 mg/dL (8.5-10.1); CREATININE 0.9 mg/dL (0.7-1.3); EST CRCL DRUG DOSING (CG) 60.17 mL/min; POTASSIUM,K 4.1 mEq/L (3.5-5.1); PROTEIN TOTAL,TP 7.7 g/dl (6.4-8.2)
[2023-01-25] MEDS ORDERED: Gabapentin 600 MG Tab PO SCH (21:00)
[2023-01-26] MEDS ORDERED: LORazepam 0.5 MG Tab PO PRN (00:08)
[2023-01-26] MEDS ORDERED: oxyCODONE 5 MG Tab PO PRN (00:27)
[2023-01-26 06:13] LABS: A/G RATIO 0.6 (1-2); ALBUMIN 2.8 g/dl (3.4-5.0); BILIRUBIN TOTAL 1.2 mg/dL (0.2-1.0); BUN/CREATININE RATIO 15.7 (14-18); CALCIUM 8.6 mg/dL (8.5-10.1); CREATININE 0.7 mg/dL (0.7-1.3); EST CRCL DRUG DOSING (CG) 77.36 mL/min; HEMATOCRIT 36.7 % (40.1-51.0); MEAN CORPUSCULAR HEMOGLOBIN 31.6 pg (25.7-32.2); MEAN CORPUSCULAR HGB CONC 32.7 g/dl (32.2-35.5); MEAN CORPUSCULAR VOLUME 96.6 fl (79.0-92.2); MEAN PLATELET VOLUME 11.4 fl (9.4-12.3); PLATELET COUNT,PLT 160 K/mm3 (163-337); PROTEIN TOTAL,TP 7.4 g/dl (6.4-8.2); WHITE BLOOD CELL COUNT,WBC 7.65 K/mm3 (4.23-9.07)
[2023-01-26] MEDS ORDERED: Magnesium Sulfate/Water 2 GM in Premix Bag 1 BAG IV ONE (06:35)
[2023-01-26] MEDS ORDERED: LORazepam 0.5 MG Tab**PTOM PO PRN (07:52)
[2023-01-26] MEDS ORDERED: Clopidogrel 75 MG Tab PO SCH (09:00)
[2023-01-26] MEDS ORDERED: [UNRECOGNIZED DRUG - OTHER] PO SCH (09:00)
[2023-01-26] MEDS ORDERED: INSULIN GLULISINE 100 UNIT/ML SQ SCH (09:00)
[2023-01-26] MEDS ORDERED: Allopurinol 100 MG Tab PO SCH (09:00)
[2023-01-26] MEDS ORDERED: METFORMIN HCL PO SCH (09:00)
[2023-01-26] MEDS ORDERED: CANAGLIFLOZIN PO SCH (09:00)
[2023-01-26] MEDS ORDERED: Non-Formulary Medication 1 Each (Insulin Glargine,Hum.Rec.Anlog [Toujeo Solostar] 300 UNIT SQ SCH (09:00)
[2023-01-26] MEDS: DILTIAZEM 120 MG PO SCH (09:18)
[2023-01-26] MEDS: METOPROLOL SUCCINATE 25 MG PO SCH (09:19)
[2023-01-26] MEDS: traMADol 50 MG Tab**PTOM PO SCH ×2 (09:20→20:53)
[2023-01-26] MEDS ORDERED: Insulin Lispro 100 Unit/ML 3 ML KwikPen SUBCUT SCH (11:30)
[2023-01-26] MEDS ORDERED: TRAMADOL 50 MG PO PRN (11:38)
[2023-01-26] MEDS: INSULIN GLULISINE 100 UNIT/ML SUBCUT SCH ×2 (11:58→17:57)
[2023-01-26] MEDS ORDERED: LORAZEPAM 0.5 MG PO PRN (14:34)
[2023-01-26] MEDS: RIVAROXABAN 10 MG PO SCH (18:00)
[2023-01-26] MEDS: ROSUVASTATIN 10 MG PO SCH (20:51)
[2023-01-26] MEDS: GABAPENTIN 400 MG PO SCH (20:51)
[2023-01-26] MEDS: OXYBUTYNIN 5 MG PO SCH (20:53)
[2023-01-26] MEDS ORDERED: Insulin Glargine,Human Rec. Analog 100 Units/ML 3 ML Pen SUBCUT SCH (21:00)
[2023-01-26] MEDS: Polyethylene Glycol 3350 Powder 17 GM Packet PO PRN (21:10)
[2023-01-26] MEDS: Insulin Glargine,Human Rec. Analog 100 Units/ML 3 ML Pen SUBCUT SCH (21:16)
[2023-01-27 05:53] LABS: HEMATOCRIT 35.6 % (40.1-51.0); HEMOGLOBIN 11.8 gm/dl (13.7-17.5); MEAN CORPUSCULAR HEMOGLOBIN 31.8 pg (25.7-32.2); MEAN CORPUSCULAR HGB CONC 33.1 g/dl (32.2-35.5); MEAN PLATELET VOLUME 10.7 fl (9.4-12.3); PLATELET COUNT,PLT 161 K/mm3 (163-337); RED BLOOD CELL COUNT 3.71 M/mm3 (4.63-6.08)
[2023-01-27 06:01] LABS: A/G RATIO 0.5 (1-2); ALBUMIN 2.5 g/dl (3.4-5.0); ANION GAP 11.9 (5-15); CALCIUM 8.3 mg/dL (8.5-10.1); CREATININE 0.8 mg/dL (0.7-1.3); EST CRCL DRUG DOSING (CG) 67.69 mL/min; POTASSIUM,K 3.9 mEq/L (3.5-5.1); PROTEIN TOTAL,TP 7.2 g/dl (6.4-8.2)
[2023-01-27] MEDS: INSULIN GLULISINE 100 UNIT/ML SUBCUT SCH ×3 (08:08→17:21)
[2023-01-27] MEDS: traMADol 50 MG Tab**PTOM PO SCH ×2 (08:08→20:58)
[2023-01-27] MEDS: METOPROLOL SUCCINATE 25 MG PO SCH (08:11)
[2023-01-27] MEDS: DILTIAZEM 120 MG PO SCH (08:11)
[2023-01-27] MEDS: RIVAROXABAN 10 MG PO SCH (17:08)
[2023-01-27] MEDS: ROSUVASTATIN 10 MG PO SCH (20:57)
[2023-01-27] MEDS: OXYBUTYNIN 5 MG PO SCH (20:58)
[2023-01-27] MEDS: GABAPENTIN 400 MG PO SCH (20:58)
[2023-01-27] MEDS: Insulin Glargine,Human Rec. Analog 100 Units/ML 3 ML Pen SUBCUT SCH (21:00)
[2023-01-27] MEDS: Polyethylene Glycol 3350 Powder 17 GM Packet PO PRN (21:02)
[2023-01-28 05:22] LABS: HEMATOCRIT 35.3 % (40.1-51.0); HEMOGLOBIN 11.6 gm/dl (13.7-17.5); MEAN CORPUSCULAR HEMOGLOBIN 31.5 pg (25.7-32.2); MEAN CORPUSCULAR HGB CONC 32.9 g/dl (32.2-35.5); MEAN CORPUSCULAR VOLUME 95.9 fl (79.0-92.2); PLATELET COUNT,PLT 187 K/mm3 (163-337); RED BLOOD CELL COUNT 3.68 M/mm3 (4.63-6.08); WHITE BLOOD CELL COUNT,WBC 5.98 K/mm3 (4.23-9.07)
[2023-01-28 05:59] LABS: A/G RATIO 0.5 (1-2); ALBUMIN 2.4 g/dl (3.4-5.0); ANION GAP 10.3 (5-15); BILIRUBIN TOTAL 0.6 mg/dL (0.2-1.0); CALCIUM 8.2 mg/dL (8.5-10.1); EST CRCL DRUG DOSING (CG) 54.15 mL/min; POTASSIUM,K 4.3 mEq/L (3.5-5.1); PROTEIN TOTAL,TP 7.1 g/dl (6.4-8.2)
[2023-01-28] MEDS: DILTIAZEM 120 MG PO SCH (08:20)
[2023-01-28] MEDS: traMADol 50 MG Tab**PTOM PO SCH ×2 (08:22→20:53)
[2023-01-28] MEDS: METOPROLOL SUCCINATE 25 MG PO SCH (08:22)
[2023-01-28] MEDS: INSULIN GLULISINE 100 UNIT/ML SUBCUT SCH ×3 (08:37→17:58)
[2023-01-28] MEDS ORDERED: Hydrocortisone 1% Crm 30 GM Tube TOP PRN (15:04)
[2023-01-28] MEDS: RIVAROXABAN 10 MG PO SCH (17:58)
[2023-01-28] MEDS: ROSUVASTATIN 10 MG PO SCH (20:50)
[2023-01-28] MEDS: OXYBUTYNIN 5 MG PO SCH (20:52)
[2023-01-28] MEDS: GABAPENTIN 400 MG PO SCH (20:52)
[2023-01-28] MEDS: Polyethylene Glycol 3350 Powder 17 GM Packet PO PRN (20:57)
[2023-01-28] MEDS: Insulin Glargine,Human Rec. Analog 100 Units/ML 3 ML Pen SUBCUT SCH (21:00)
[2023-01-29] MEDS: traMADol 50 MG Tab**PTOM PO SCH (09:04)
[2023-01-29] MEDS: METOPROLOL SUCCINATE 25 MG PO SCH (09:09)
[2023-01-29] MEDS: INSULIN GLULISINE 100 UNIT/ML SUBCUT SCH ×3 (09:11→17:23)
[2023-01-29] MEDS: DILTIAZEM 120 MG PO SCH (09:11)
[2023-01-29] MEDS: Polyethylene Glycol 3350 Powder 17 GM Packet PO PRN (09:26)
[2023-01-29] MEDS ORDERED: Bisacodyl 10 MG Supp RECTAL ONE (10:00)
[2023-01-29] MEDS ORDERED: LORazepam 0.5 MG Tab PO PRN (11:12)
[2023-01-29] MEDS ORDERED: traMADol 50 MG Tab PO PRN (11:19)
[2023-01-29] MEDS: Sennosides/Docusate Sodium 50-8.6 MG Tab PO SCH ×2 (14:01→21:00)
[2023-01-29] MEDS: Rivaroxaban 10 MG Tab PO SCH (17:23)
[2023-01-29] MEDS: Gabapentin 100 MG Cap PO SCH (20:58)
[2023-01-29] MEDS: Gabapentin 300 MG Cap PO SCH (20:58)
[2023-01-29] MEDS: Rosuvastatin 10 MG Tab PO SCH (20:58)
[2023-01-29] MEDS: Oxybutynin 5 MG Tab PO SCH (20:58)
[2023-01-29] MEDS: Gabapentin 600 MG Tab PO SCH (20:58)
[2023-01-29] MEDS: traMADol 50 MG Tab PO SCH (20:59)
[2023-01-29] MEDS: Insulin Glargine,Human Rec. Analog 100 Units/ML 3 ML Pen SUBCUT SCH (21:07)
[2023-01-30] MEDS: Polyethylene Glycol 3350 Powder 17 GM Packet PO SCH (08:09)
[2023-01-30] MEDS: Diltiazem 120 MG Cap.CD PO SCH (08:09)
[2023-01-30] MEDS: Metoprolol Succinate 25 MG Tab.ER PO SCH (08:10)
[2023-01-30] MEDS: Sennosides/Docusate Sodium 50-8.6 MG Tab PO SCH (08:10)
[2023-01-30] MEDS: traMADol 50 MG Tab PO SCH ×2 (08:11→21:44)
[2023-01-30 09:01] LABS: APPEARANCE,URINE SLT CLOUDY (Clear); BILIRUBIN,URINE NEGATIVE (Negative); COLOR,URINE YELLOW (Yellow); GLUCOSE,URINE TRACE (Negative); KETONES,URINE NEGATIVE (Negative); LEUKOCYTE ESTERASE,URINE NEGATIVE (Negative); NITRITE,URINE NEGATIVE (Negative); OCCULT BLOOD,URINE 1+ (Negative); PROTEIN,URINE TRACE (Negative); UROBILINOGEN,URINE 0.2 (0.2-1.0)
[2023-01-30] MEDS: INSULIN GLULISINE 100 UNIT/ML SUBCUT SCH ×3 (09:01→18:21)
[2023-01-30 09:16] LABS: EPITHELIAL CELLS,URINE 0-5 /hpf (0-5); RBC,URINE 0-5 /hpf (0-5); WBC,URINE 0-5 /hpf (0-5)
[2023-01-30 09:17] LABS: BACTERIA,URINE FEW /hpf (FEW); MUCUS,URINE FEW /hpf (FEW)
[2023-01-30] MEDS: Rivaroxaban 10 MG Tab PO SCH (18:00)
[2023-01-30] MEDS: Rosuvastatin 10 MG Tab PO SCH (21:43)
[2023-01-30] MEDS: Gabapentin 300 MG Cap PO SCH (21:45)
[2023-01-30] MEDS: Gabapentin 100 MG Cap PO SCH (21:45)
[2023-01-30] MEDS: Insulin Glargine,Human Rec. Analog 100 Units/ML 3 ML Pen SUBCUT SCH (21:46)
[2023-01-30] MEDS: Gabapentin 600 MG Tab PO SCH (21:46)
[2023-01-30] MEDS: Oxybutynin 5 MG Tab PO SCH (21:47)
[2023-01-31] MEDS: INSULIN GLULISINE 100 UNIT/ML SUBCUT SCH (07:58)
[2023-01-31] MEDS: Diltiazem 120 MG Cap.CD PO SCH (07:59)
[2023-01-31] MEDS: Polyethylene Glycol 3350 Powder 17 GM Packet PO SCH (08:16)
[2023-01-31] MEDS: Metoprolol Succinate 25 MG Tab.ER PO SCH (08:16)
[2023-01-31] MEDS: traMADol 50 MG Tab PO SCH (08:17)
[2023-01-31 08:23] VITALS: BP 113/72; PULSE 130
[2023-01-31] MEDS ORDERED: Docusate Sodium 100 MG Cap PO SCH (09:00)
== END 2023-01-31 10:14 | DRG 914 ==
LOC: JD.ED 13:55 → JD.MS 21:43 → OBSVTOIN 01-28 08:20 → JD.MS 01-30 21:06
PROVIDERS: ADMIT Internal Medicine; ATTEND Internal Medicine
DX: M25.552 Pain in left hip (principal); Z74.09 Other reduced mobility; I48.91 Unspecified atrial fibrillation; S79.912A Unspecified injury of left hip, initial encounter; I50.32 Chronic diastolic (congestive) heart failure; I10 Essential (primary) hypertension; E87.1 Hypo-osmolality and hyponatremia; I11.0 Hypertensive heart disease with heart failure; E78.00 Pure hypercholesterolemia, unspecified; J44.9 Chronic obstructive pulmonary disease, unspecified; M19.90 Unspecified osteoarthritis, unspecified site; W01.0XXA Fall on same level from slipping, tripping and stumbling without subsequent striking against object, initial encounter; E11.40 Type 2 diabetes mellitus with diabetic neuropathy, unspecified; F41.9 Anxiety disorder, unspecified; I25.10 Atherosclerotic heart disease of native coronary artery without angina pectoris; E11.65 Type 2 diabetes mellitus with hyperglycemia; I48.0 Paroxysmal atrial fibrillation; W19.XXXA Unspecified fall, initial encounter; G31.84 Mild cognitive impairment of uncertain or unknown etiology; K59.00 Constipation, unspecified; H91.90 Unspecified hearing loss, unspecified ear; M16.0 Bilateral primary osteoarthritis of hip; M17.12 Unilateral primary osteoarthritis, left knee; M47.818 Spondylosis without myelopathy or radiculopathy, sacral and sacrococcygeal region; Z79.01 Long term (current) use of anticoagulants; Z88.1 Allergy status to other antibiotic agents; Z88.0 Allergy status to penicillin; Z88.8 Allergy status to other drugs, medicaments and biological substances; Z79.02 Long term (current) use of antithrombotics/antiplatelets; Z79.4 Long term (current) use of insulin; Z79.899 Other long term (current) drug therapy; Z95.5 Presence of coronary angioplasty implant and graft; Z85.46 Personal history of malignant neoplasm of prostate; Z98.49 Cataract extraction status, unspecified eye
CPT/HCPCS: 36415 ×4; 70450; 72170; 72192; 73552; 73562; 73700; 80053 ×4; 82947 ×9; 83735; 85025; 85027 ×3; 96374; 96376; 97110; 97161; 97530 ×2; 99285; A9270 ×18; J1815; J2270 ×2; J3475; 81001; 97116-GP; 97165-GO; 99222; 99231; 99232; 99239; 99284

== ENCOUNTER 2023-11-30 17:39 | Emergency (ER) | payer MEDICARE ==
[2023-11-30 17:49] VITALS: BP 131/66; PULSE 76
[2023-11-30] MEDS: Aspirin 81 MG Tab.Chew PO ONE (17:54)
[2023-11-30] MEDS: Tenecteplase 50 MG Kit ONE (17:59)
[2023-11-30 18:00] LABS: BASOPHILS PERCENT AUTO 0.3 % (0.0-1.0); EOSINOPHILS ABSOLUTE AUTO 0.1 K/mm3 (0.0-0.4); EOSINOPHILS PERCENT AUTO 1.2 % (0.0-6.0); HEMATOCRIT 39.8 % (42.0-52.0); HEMOGLOBIN 13.2 gm/dl (14.0-18.0); IMMATURE GRAN ABSOLUTE AUTO 0.01 K/mm3 (0.00-0.05); IMMATURE GRAN PERCENT AUTO 0.1 % (0.0-0.4); LYMPHOCYTES ABSOLUTE AUTO 1.2 K/mm3 (1.0-4.8); LYMPHOCYTES PERCENT AUTO 17.6 % (24.0-44.0); MEAN CORPUSCULAR HEMOGLOBIN 31.9 pg (28.0-32.0); MEAN CORPUSCULAR HGB CONC 33.2 g/dl (32.0-36.0); MEAN CORPUSCULAR VOLUME 96.1 fl (83.0-99.0); MONOCYTES ABSOLUTE AUTO 0.5 K/mm3 (0.0-0.8); MONOCYTES PERCENT AUTO 7.3 % (0.0-8.0); NEUTROPHILS ABSOLUTE AUTO 5.1 K/mm3 (1.8-7.7); NEUTROPHILS PERCENT AUTO 73.5 % (41.0-71.0); PLATELET COUNT,PLT 165 K/mm3 (150-400); RED BLOOD CELL COUNT 4.14 M/mm3 (4.52-5.90); WHITE BLOOD CELL COUNT,WBC 6.88 K/mm3 (3.9-11.3)
[2023-11-30] MEDS: Tenecteplase 50 MG Kit IV STA (18:01)
[2023-11-30] MEDS: Heparin Sodium 5,000 Units/ML Vial IVPUSH ONE ×2 (18:02→18:09)
[2023-11-30] MEDS: atorvaSTATin 40 MG Tab PO ONE (18:07)
[2023-11-30 18:18] LABS: INR 1.08; PROTHROMBIN TIME 11.5 SECONDS (9.7-12.0)
[2023-11-30 18:22] LABS: D-DIMER QUANTITATIVE 0.74 mg/L (0.19-0.50)
[2023-11-30] MEDS: Heparin Sodium/D5W 25,000 UNITS/500 ML BAG IV SCH (18:26)
[2023-11-30 18:28] LABS: A/G RATIO 0.8 (1-2); ALBUMIN 3.5 g/dl (3.4-5.0); ANION GAP 13.6 (5-15); BILIRUBIN TOTAL 0.7 mg/dL (0.2-1.0); CALCIUM 9.1 mg/dL (8.5-10.1); EST CRCL DRUG DOSING (CG) 53.2 mL/min; MAGNESIUM 1.6 mg/dL (1.8-2.4); PHOSPHORUS 3.6 mg/dL (2.6-4.7); POTASSIUM,K 3.6 mEq/L (3.5-5.1)
[2023-11-30] MEDS: Ondansetron 4 MG/2 ML SDV IVPUSH ONE (18:29)
[2023-11-30] MEDS: Morphine 4 MG/ML Syringe IVPUSH ONE (18:29)
[2023-11-30 18:35] LABS: LACTIC ACID 2.5 mmol/L (0.4-2.0)
== END 2023-11-30 18:55 ==
LOC: JD.ED 17:39
DX: I21.19 ST elevation (STEMI) myocardial infarction involving other coronary artery of inferior wall (principal); I48.91 Unspecified atrial fibrillation; I11.0 Hypertensive heart disease with heart failure; I50.9 Heart failure, unspecified; E78.00 Pure hypercholesterolemia, unspecified; J44.9 Chronic obstructive pulmonary disease, unspecified; E11.9 Type 2 diabetes mellitus without complications; Z88.1 Allergy status to other antibiotic agents; Z91.011 Allergy to milk products; Z88.8 Allergy status to other drugs, medicaments and biological substances; Z88.0 Allergy status to penicillin; Z79.4 Long term (current) use of insulin; Z79.899 Other long term (current) drug therapy; Z86.19 Personal history of other infectious and parasitic diseases
CPT/HCPCS: 36415; 71045; 80053; 83605; 83735; 83880; 84100; 84484; 85025; 85379; 85610; 85730; 93005; 96365; 96375; 99291; A9270; J1644; J2270; J2405; J3101; 93010

== ENCOUNTER 2024-03-30 14:48 | Emergency (ER) | payer MEDICARE ==
[2024-03-30 15:37] LABS: BASOPHILS PERCENT AUTO 0.8 % (0.0-1.0); EOSINOPHILS ABSOLUTE AUTO 0.1 K/mm3 (0.0-0.4); EOSINOPHILS PERCENT AUTO 2.9 % (0.0-6.0); HEMATOCRIT 38.6 % (42.0-52.0); HEMOGLOBIN 12.7 gm/dl (14.0-18.0); IMMATURE GRAN ABSOLUTE AUTO 0.01 K/mm3 (0.00-0.05); IMMATURE GRAN PERCENT AUTO 0.2 % (0.0-0.4); LYMPHOCYTES PERCENT AUTO 19.6 % (24.0-44.0); MEAN CORPUSCULAR HEMOGLOBIN 31.5 pg (28.0-32.0); MEAN CORPUSCULAR HGB CONC 32.9 g/dl (32.0-36.0); MEAN CORPUSCULAR VOLUME 95.8 fl (83.0-99.0); MEAN PLATELET VOLUME 9.5 fl (9.4-12.4); MONOCYTES ABSOLUTE AUTO 0.5 K/mm3 (0.0-0.8); MONOCYTES PERCENT AUTO 9.2 % (0.0-8.0); NEUTROPHILS ABSOLUTE AUTO 3.3 K/mm3 (1.8-7.7); NEUTROPHILS PERCENT AUTO 67.3 % (41.0-71.0); PLATELET COUNT,PLT 180 K/mm3 (150-400); RED BLOOD CELL COUNT 4.03 M/mm3 (4.52-5.90); WHITE BLOOD CELL COUNT,WBC 4.91 K/mm3 (3.9-11.3)
[2024-03-30 15:59] LABS: A/G RATIO 0.8 (1-2); ALBUMIN 3.2 g/dl (3.4-5.0); ANION GAP 11.1 (5-15); BILIRUBIN TOTAL 0.6 mg/dL (0.2-1.0); BUN/CREATININE RATIO 12.2 (14-18); CALCIUM 9.1 mg/dL (8.5-10.1); CREATININE 0.9 mg/dL (0.7-1.3); EST CRCL DRUG DOSING (CG) 58.06 mL/min; POTASSIUM,K 4.1 mEq/L (3.5-5.1); PROTEIN TOTAL,TP 7.3 g/dl (6.4-8.2)
[2024-03-30 17:03] LABS: APPEARANCE,URINE CLEAR (Clear); BILIRUBIN,URINE NEGATIVE (Negative); COLOR,URINE YELLOW (Yellow); GLUCOSE,URINE 2+ (Negative); KETONES,URINE NEGATIVE (Negative); LEUKOCYTE ESTERASE,URINE NEGATIVE (Negative); NITRITE,URINE NEGATIVE (Negative); OCCULT BLOOD,URINE NEGATIVE (Negative); PH,URINE 7.5 (5.0-8.0); PROTEIN,URINE NEGATIVE (Negative)
[2024-03-30] MEDS: Magnesium Citrate Solution 296 ML Bottle PO ONE (18:01)
[2024-03-30 18:21] VITALS: BP 121/74; PULSE 105
== END 2024-03-30 18:15 | disposition home or self-care (01) ==
LOC: JD.ED 14:48
DX: R35.0 Frequency of micturition (principal); K59.00 Constipation, unspecified; I48.91 Unspecified atrial fibrillation; I11.0 Hypertensive heart disease with heart failure; I50.9 Heart failure, unspecified; E11.40 Type 2 diabetes mellitus with diabetic neuropathy, unspecified; E78.00 Pure hypercholesterolemia, unspecified; J44.9 Chronic obstructive pulmonary disease, unspecified; Z79.4 Long term (current) use of insulin; Z79.02 Long term (current) use of antithrombotics/antiplatelets; Z79.899 Other long term (current) drug therapy; Z88.0 Allergy status to penicillin; Z88.1 Allergy status to other antibiotic agents; Z88.8 Allergy status to other drugs, medicaments and biological substances; Z91.012 Allergy to eggs
CPT/HCPCS: 36415; 74018; 80053; 81003; 85025; 99283; A9270

== ENCOUNTER 2024-04-07 17:11 | Emergency (ER) | payer MEDICARE ==
[2024-04-07 18:32] LABS: BASOPHILS PERCENT AUTO 0.6 % (0.0-1.0); EOSINOPHILS ABSOLUTE AUTO 0.1 K/mm3 (0.0-0.4); HEMOGLOBIN 13.6 gm/dl (14.0-18.0); IMMATURE GRAN ABSOLUTE AUTO 0.02 K/mm3 (0.00-0.05); IMMATURE GRAN PERCENT AUTO 0.3 % (0.0-0.4); LYMPHOCYTES ABSOLUTE AUTO 1.1 K/mm3 (1.0-4.8); LYMPHOCYTES PERCENT AUTO 17.3 % (24.0-44.0); MEAN CORPUSCULAR HEMOGLOBIN 31.6 pg (28.0-32.0); MEAN CORPUSCULAR HGB CONC 33.2 g/dl (32.0-36.0); MEAN CORPUSCULAR VOLUME 95.1 fl (83.0-99.0); MEAN PLATELET VOLUME 9.6 fl (9.4-12.4); MONOCYTES ABSOLUTE AUTO 0.5 K/mm3 (0.0-0.8); NEUTROPHILS ABSOLUTE AUTO 4.6 K/mm3 (1.8-7.7); NEUTROPHILS PERCENT AUTO 71.8 % (41.0-71.0); PLATELET COUNT,PLT 205 K/mm3 (150-400); RED BLOOD CELL COUNT 4.31 M/mm3 (4.52-5.90); WHITE BLOOD CELL COUNT,WBC 6.41 K/mm3 (3.9-11.3)
[2024-04-07 18:51] LABS: INR 1.19; PROTHROMBIN TIME 12.5 SECONDS (9.7-12.0)
[2024-04-07 18:52] LABS: PTT,PARTIAL THROMBOPLSTIN TIME 32.9 SECONDS (21.7-31.4)
[2024-04-07 19:04] LABS: A/G RATIO 0.7 (1-2); ALBUMIN 3.3 g/dl (3.4-5.0); ANION GAP 12.5 (5-15); BILIRUBIN TOTAL 0.6 mg/dL (0.2-1.0); BUN/CREATININE RATIO 12.7 (14-18); CALCIUM 9.4 mg/dL (8.5-10.1); CREATININE 1.1 mg/dL (0.7-1.3); EST CRCL DRUG DOSING (CG) 49.1 mL/min; MAGNESIUM 2.1 mg/dL (1.8-2.4); POTASSIUM,K 4.5 mEq/L (3.5-5.1); PROTEIN TOTAL,TP 7.8 g/dl (6.4-8.2)
[2024-04-07] MEDS: Acetaminophen/HYDROcodone 325-5 MG Tab PO ONE (21:05)
[2024-04-07 21:50] VITALS: BP 111/55; PULSE 91
== END 2024-04-07 21:25 | disposition hospice, inpatient (51) ==
LOC: JD.ED 17:11
DX: K59.00 Constipation, unspecified (principal); M54.6 Pain in thoracic spine; R07.9 Chest pain, unspecified; I48.91 Unspecified atrial fibrillation; E78.00 Pure hypercholesterolemia, unspecified; I10 Essential (primary) hypertension; J44.9 Chronic obstructive pulmonary disease, unspecified; E11.9 Type 2 diabetes mellitus without complications; Z95.5 Presence of coronary angioplasty implant and graft; Z79.4 Long term (current) use of insulin; Z79.899 Other long term (current) drug therapy; Z88.1 Allergy status to other antibiotic agents; Z91.012 Allergy to eggs; Z88.8 Allergy status to other drugs, medicaments and biological substances; Z88.0 Allergy status to penicillin; Z88.9 Allergy status to unspecified drugs, medicaments and biological substances
CPT/HCPCS: 36415; 71045; 72020; 74018; 80053; 83735; 83880; 84484; 85025; 85610; 85730; 93005; 99285; A9270